=== PATIENT | male | born 1950 | race Caucasian/White ===

== ENCOUNTER → 2023-06-26 16:38 | Outpatient (REF) | payer OTHER, SELFPAY | LOC: RAD 16:38 | PROVIDERS: ATTENDING PHYSICIAN Physician Assistant | DX: R05.3 Chronic cough (principal); R09.89 Other specified symptoms and signs involving the circulatory and respiratory systems | CPT/HCPCS: 71046 ==

== ENCOUNTER → 2023-11-25 14:31 | Outpatient (REF) | payer OTHER, SELFPAY | LOC: HWRAD 14:31 | PROVIDERS: ATTENDING PHYSICIAN Nurse Practitioner | DX: R10.31 Right lower quadrant pain (principal); Z98.890 Other specified postprocedural states; R19.03 Right lower quadrant abdominal swelling, mass and lump | CPT/HCPCS: 76705 ==

== ENCOUNTER → 2023-12-04 10:15 | Outpatient (REF) | payer OTHER, SELFPAY ==
[2023-12-04 11:29] LABS: % Basophils 0.6 % (0-2); % Eosinophils 1.8 % (0-6); % Immature Granulocytes 0.3 % (0-0.5); % Lymphocytes 11.7 % (20.5-51.1); % Monocytes 11.4 % (1.7-9.3); % Neutrophils 74.2 % (42.2-75.2); Absolute Eosinophils 0.1 10^3/uL (0-0.7); Absolute Lymphocytes 0.4 10^3/uL (1.2-3.4); Absolute Monocytes 0.4 10^3/uL (0.1-0.6); Absolute Neutrophils 2.5 10^3/uL (1.4-6.5); Hematocrit 36.9 % (39.0-52.0); Hemoglobin 13.3 g/dL (13.0-18.0); Mean Corpuscular Hgb 33.8 pg (27.0-31.0); Mean Corpuscular Volume 93.9 fL (80.0-94.0); Mean Platelet Volume 11.5 fL (7.4-10.4); Nucleated Red Blood Cells % 0 % (-); Platelet Count 171 10^3/uL (130-400); Red Blood Cell Count 3.93 10^6/uL (4.70-6.10); Red Cell Dist. Width 13.9 % (11.5-14.5); White Blood Cell Count 3.3 10^3/uL (4.8-10.8)
[2023-12-04 12:07] LABS: ALT (SGPT) 27 U/L (0-50); AST (SGOT) 31 U/L (17-59); Albumin 3.7 g/dl (3.5-5.0); Alkaline Phosphatase 244 U/L (38-126); Blood Urea Nitrogen 20 mg/dl (9-20); Calcium 9.2 mg/dl (8.4-10.2); Carbon Dioxide 28 mmol/L (22-30); Chloride 101 mmol/L (98-107); Glucose 58 mg/dl (70-99); Sodium 136 mmol/L (135-145); Total Bilirubin 0.9 mg/dl (0.2-1.3); Total Protein 6.2 g/dl (6.3-8.2); eGFR > 60.00
== END ==
LOC: REG 10:15
PROVIDERS: ATTENDING PHYSICIAN Nurse Practitioner
DX: I10 Essential (primary) hypertension (principal); E78.2 Mixed hyperlipidemia; D64.9 Anemia, unspecified; R56.9 Unspecified convulsions
CPT/HCPCS: 36415; 80053; 85025

== ENCOUNTER → 2023-12-06 10:17 | Outpatient (REF) | payer OTHER, SELFPAY | LOC: HWRAD 10:17 | PROVIDERS: ATTENDING PHYSICIAN Nurse Practitioner | DX: R19.03 Right lower quadrant abdominal swelling, mass and lump (principal) | CPT/HCPCS: 74178; Q9967 ==

== ENCOUNTER → 2024-01-03 10:11 | Outpatient (REF) | payer OTHER, SELFPAY ==
[2024-01-03 14:05] LABS: Blood Urea Nitrogen 17 mg/dl (9-20); Calcium 9.1 mg/dl (8.4-10.2); Carbon Dioxide 26 mmol/L (22-30); Chloride 101 mmol/L (98-107); Glucose 64 mg/dl (70-99); Potassium 4.2 mmol/L (3.5-5.1); Sodium 136 mmol/L (135-145); eGFR > 60.00
== END ==
LOC: REG 10:11
PROVIDERS: ATTENDING PHYSICIAN Nurse Practitioner; FAMILY PHYSICIAN Nurse Practitioner; REFERRING PHYSICIAN Physician Assistant
DX: R06.02 Shortness of breath (principal); R60.9 Edema, unspecified
CPT/HCPCS: 36415; 71046; 80048

== ENCOUNTER 2024-03-10 19:45 | Emergency (ER) | payer OTHER, SELFPAY ==
[2024-03-10 19:55] VITALS: BP 104/69
[2024-03-10 20:41] LABS: % Basophils 0.3 % (0-2); % Eosinophils 0.3 % (0-6); % Immature Granulocytes 0.5 % (0-0.5); % Lymphocytes 4.2 % (20.5-51.1); % Monocytes 6.7 % (1.7-9.3); Absolute Lymphocytes 0.3 10^3/uL (1.2-3.4); Absolute Monocytes 0.4 10^3/uL (0.1-0.6); Absolute Neutrophils 5.4 10^3/uL (1.4-6.5); Hematocrit 40.6 % (39.0-52.0); Hemoglobin 14.4 g/dL (13.0-18.0); Mean Corp Hgb Conc. 35.5 g/dL (33.0-37.0); Mean Corpuscular Volume 90.2 fL (80.0-94.0); Mean Platelet Volume 11.1 fL (7.4-10.4); Nucleated Red Blood Cells % 0 % (-); Platelet Count 187 10^3/uL (130-400); Red Cell Dist. Width 13.7 % (11.5-14.5); White Blood Cell Count 6.1 10^3/uL (4.8-10.8)
[2024-03-10 20:53] LABS: COVID-19 Antigen Negative (Negative)
[2024-03-10 21:00] VITALS: BP 104/67
--- NOTE | 2024-03-10 21:01 | ED.GENMED ---
History of Present Illness
General
Chief Complaint: Fever
Source: patient
Exam Limitations: developmental stage
Time Seen by Provider: 03/10/24 20:06
Nursing documentation reviewed up to this point in time: agreed with
History of Present Illness
History of Present Illness:
74-year-old male special-needs, from the facility presents with fever 103 patient states he has a mild cough no nausea no vomiting he knows he is at the hospital, no abdominal pain no problem urinating, his seizure disorder high cholesterol heart
failure
Past History
Past History
ED Past Medical History: Hypercholesterolemia, Seizures, Psychiatric and Other (Diverticulosis Asperger's developmental delays seizures.)
ED Past Surgical History: Cholecystectomy, Urological (TURP) and Other (MEDICAL INSURANCE BILLER shunt. Hernia repair)
Social History
Tobacco: Non-smoker
Alcohol: None
Drug: None
Personal: Single
Living: assisted living
Employment: Not employed
Review of Systems
Review of Systems
All Other Systems: Not applicable
Constitutional: Reports fever
Respiratory: Reports cough
Cardiac: Reports no symptoms
ABD/GI: Reports no symptoms
: Reports no symptoms
Musculoskeletal: Reports no symptoms
Skin: Reports no symptoms
Endocrine: Reports no symptoms
Hematologic/Lymphatic: Reports no symptoms
Phy Exam
Physical Exam
Physical Exam:
Physical Exam
General: Special needs chronically ill nontoxic elderly male with fever
Neck: Lips are moist
Heart: Regular
Lungs: no acute respiratory distress. clear bilaterally
Abdomen: Nontender
Neuro: Nonfocal
Skin: no rash
Psychiatric: Developmentally delayed,
Extremities: no edema. no calf tenderness.
Sepsis
Sepsis Screening
Sepsis Assessment: Sepsis Ruled Out
Sepsis Screen
Sepsis Screen: Sepsis Ruled Out
Date: 03/10/24
Time: 22:45
Course
Orders/Labs/Results
Orders:
Orders
03/10/24 20:26
CBC/With Diff [Complete Blood Count/With Diff] Urgent
COVID-19 Antigen Urgent
Source: Nasal Swab
Influenza A+B Rapid Molecular Urgent
MICHAEL Source: Nasal Swab
Specimen Description:
03/10/24 20:32
Urinalysis Reflex To Culture Urgent
Acetaminophen [Tylenol] 650 mg PO NOW STA
CR Chest - 2 Views Urgent
Comment:
Reason For Exam: fever
03/10/24 21:08
Comprehensive Metabolic Panel Urgent
03/10/24 22:41
CefTRIAXone [Rocephin] 1,000 mg IV NOW STA
Abnormal Lab Results
03/10/24 03/10/24
20:26 21:08
RBC 4.50 L 10^6/uL
(4.70-6.10)
MCH 32.0 H pg
(27.0-31.0)
MPV 11.1 H fL
(7.4-10.4)
Absolute Lymphs (auto) 0.3 L 10^3/uL
(1.2-3.4)
Neutrophils % 88.0 H %
(42.2-75.2)
Lymphocytes % 4.2 L %
(20.5-51.1)
Chloride 97 L mmol/L
(98-107)
Carbon Dioxide 32 H mmol/L
(22-30)
BUN 22 H mg/dl
(9-20)
Alkaline Phosphatase 221 H U/L
(38-126)
Total Protein 5.8 L g/dl
(6.3-8.2)
03/10/24 20:26
03/10/24 21:08
Vital Signs
Initial and Last Documented VS:
Initial Vital Signs
Temp Pulse Resp BP Pulse Ox
101.4 F H 86 24 104/69 98
03/10/24 19:55 03/10/24 19:55 03/10/24 19:55 03/10/24 19:55 03/10/24 19:55
Last Documented Vital Signs
Temp Pulse Resp BP Pulse Ox
101.4 F H 86 24 104/69 98
03/10/24 19:55 03/10/24 19:55 03/10/24 19:55 03/10/24 19:55 03/10/24 19:55
MDM/Problems Addressed
Differential Diagnosis Includes:
Viral syndrome pneumonia UTI no signs of DVT
MDM/Problems Addressed:
Fever
Chronic conditions affecting care: Neurological disorder and Psychiatric illness
Acute Exacerbation and/or Progression of Chronic Illness: Neurological disorder and Psychiatric illness
*Radiology
Radiology exam reviewed: preliminary read by ED provider
*Pulse Oximetry
Patient hypoxic: no
*Developing Machine Tender Interpretation
Rate: Developing Machine Tender- N/A
*Critical Care Note
Total Time (30-74mins, 75-104mins- exclusive of procedures): Not Applicable
Update Note
Update Note:
Patient with high fever earlier, he is nontoxic fairly clear mental status, check screening blood work viral swabs chest x-ray urine
Update chest x-ray noted
Similar to prior chest x-rays, patient obviously not the best historian is not hypoxic, nontoxic-appearing will err on the side of caution and treat with antibiotics
ED Attending Note
-
Portions of this chart may have been created with voice recognition software.� Occasional wrong word or��sound alike� substitutions may have occurred due to the inherent limitations of voice recognition software.
Discharge Plan
Departure
Patient Disposition: Home (Routine Discharge)
Date of Disposition: 03/10/24
Time of Disposition: 22:43
Patient with high blood pressure during this ER visit?: No
Condition: Good
Discharge Problem:
Fever, Pneumonia
Instructions: Pneumonia in adults, Fever, Adult (DC)
Prescriptions:
New
amoxicillin-pot clavulanate [Augmentin ES-600] 600-42.9 mg/5 mL suspension for reconstitution
5 ml PO BID 10 Days Qty: 100 0RF
No Action
clonazepam 0.5 MG tablet
0.5 mg PO TID@0800,1600,1999
docusate sodium 100 MG capsule
100 mg PO BID@0800,1600
phenobarbital 32.4 MG tablet
32.4 mg PO TID@0800,1200,1600
chlorhexidine gluconate 15 ML mouthwash
15 ml mucous membrane BID
calcium carbonate-vitamin D3 [Oyster Shell Calcium-Vit D3] 500 mg-5 mcg (200 unit) Tablet
1 tab PO BID@0800,1600
polyethylene glycol 3350 17 GRAMS powder in packet
17 grams PO DAILY
simvastatin 10 mg Tablet
10 mg PO DAILY@1600
tamsulosin 0.4 mg Capsule
0.4 mg PO BID
aspirin 81 mg Tablet,Chewable
81 mg PO DAILY
carboxymethylcellulose sodium 1 % Drops, Liquid Gel
1 - 2 drp RIGHT EYE QID PRN (Reason: dryness)
escitalopram oxalate 10 mg Tablet
10 mg PO DAILY
Rx Instructions:
take w/ 5 mg for total dose 15 mg
escitalopram oxalate 5 mg Tablet
5 mg PO DAILY
Rx Instructions:
take w/ 10 mg for total dose 15 mg
acetaminophen 325 mg Tablet
650 mg PO Q4H PRN (Reason: mild pain/fever)
nystatin 100,000 unit/gram ointment
1 applic TOPICAL BID PRN (Reason: rash)
guaifenesin 100 mg/5 mL Liquid
100 - 200 mg PO Q4H PRN (Reason: cough)
Citrucel 500 mg Tablet
1,000 mg PO BID@0800,1600
bethanechol chloride 25 mg tablet
25 mg PO BID
pantoprazole [Protonix] 40 mg tablet,delayed release (DR/EC)
40 mg PO DAILY Qty: 30 0RF
furosemide 40 mg Tablet
40 mg PO BID@0800,1600 Qty: 60 0RF
spironolactone 25 mg Tablet
12.5 mg PO DAILY Qty: 30 0RF
Referrals:
Josefa Farley CRNP [Family Provider] - Next open appointment
Interventions
Interventions:
*Risk Screen - Suicide Last Done: 03/10/24 19:55
*General Assessment Last Done: 03/10/24 19:55
*Neglect/Abuse Screening Last Done: 03/10/24 19:55
Discharge Date and Time
Print Language: PERUVIAN
[2024-03-10] MEDS: TYLENOL 650 MG PO (21:02)
[2024-03-10 21:32] LABS: ALT (SGPT) 26 U/L (0-50); AST (SGOT) 33 U/L (17-59); Albumin 3.5 g/dl (3.5-5.0); Alkaline Phosphatase 221 U/L (38-126); Blood Urea Nitrogen 22 mg/dl (9-20); Calcium 8.7 mg/dl (8.4-10.2); Carbon Dioxide 32 mmol/L (22-30); Chloride 97 mmol/L (98-107); Glucose 94 mg/dl (70-99); Potassium 3.9 mmol/L (3.5-5.1); Sodium 137 mmol/L (135-145); Total Bilirubin 0.7 mg/dl (0.2-1.3); Total Protein 5.8 g/dl (6.3-8.2); eGFR > 60.00
[2024-03-10 22:00] VITALS: BP 102/58
[2024-03-10] MEDS: ROCEPHIN 1000 MG IV (23:24)
[2024-03-10 23:26] VITALS: BP 91/71
[2024-03-11] VITALS (9 sets, daily range): BP systolic 91–102; BP diastolic 60–73
--- NOTE | 2024-03-11 04:05 | DOWNTIME ---
There was a [employer] Client Dermatology Physician Downtime on 02/12/2024 from 0100 to 02/12/2024 at 0300. Downtime documentation of patient's care, including medication administrations, has been reconciled in the electronic record per guidelines. Refer to the
patient's paper chart under the miscellaneous tab to see printed paper medication records and downtime forms.
--- NOTE | 2024-03-11 04:52 | DOWNTIME ---
There was a [employer] Client Automatic Mounter Downtime on 03/11/2024 from 0100 to 03/11/2024 at 0355. Downtime documentation of patient's care, including medication administrations, has been reconciled in the electronic record per guidelines. Refer to the
patient's paper chart under the miscellaneous tab to see printed paper medication records and downtime forms.
--- NOTE | 2024-03-11 09:20 | EDRN ---
Report given to Hallie Betancourt RN at [facility].
--- NOTE | 2024-03-11 09:39 | EDRN ---
Report given to Acute Care Ambulance staff.
== END 2024-03-11 09:42 | disposition home or self-care (01) ==
LOC: EMR 19:45
PROVIDERS: EMERGENCY PHYSICIAN Emergency Medicine; FAMILY PHYSICIAN Nurse Practitioner
DX: J18.9 Pneumonia, unspecified organism (principal); E78.00 Pure hypercholesterolemia, unspecified; F84.5 Asperger's syndrome; Z90.49 Acquired absence of other specified parts of digestive tract; Z98.2 Presence of cerebrospinal fluid drainage device
CPT/HCPCS: 99284; 96374; 71046; 80053; 85025; 87502; 87811

== ENCOUNTER → 2024-04-03 10:10 | Outpatient (REF) | payer OTHER, SELFPAY | LOC: RCS 10:10 | PROVIDERS: ATTENDING PHYSICIAN Nuclear Medicine Nuclear Cardiology; FAMILY PHYSICIAN Internal Medicine; REFERRING PHYSICIAN Nurse Practitioner | DX: I50.32 Chronic diastolic (congestive) heart failure (principal); I31.39 Other pericardial effusion (noninflammatory); I50.22 Chronic systolic (congestive) heart failure | CPT/HCPCS: 71046; 93306 ==

== ENCOUNTER → 2024-05-22 14:58 | Outpatient (REF) | payer OTHER, SELFPAY | LOC: RAD 14:58 | PROVIDERS: ATTENDING PHYSICIAN Nurse Practitioner | DX: J06.9 Acute upper respiratory infection, unspecified (principal) | CPT/HCPCS: 71046 ==

== ENCOUNTER → 2024-05-25 13:22 | Outpatient (REF) | payer OTHER, SELFPAY ==
[2024-05-25 14:19] VITALS: BP 102/81; BP_SYST 72
[2024-05-25 14:56] LABS: ALT (SGPT) 29 U/L (0-50); AST (SGOT) 32 U/L (17-59); Albumin 3.1 g/dl (3.5-5.0); Alkaline Phosphatase 177 U/L (38-126); Blood Urea Nitrogen 25 mg/dl (9-20); Calcium 8.6 mg/dl (8.4-10.2); Carbon Dioxide 31 mmol/L (22-30); Chloride 97 mmol/L (98-107); Glucose 108 mg/dl (70-99); LDH 154 U/L (120-246); Potassium 4.1 mmol/L (3.5-5.1); Sodium 132 mmol/L (135-145); Total Bilirubin 0.5 mg/dl (0.2-1.3); Total Protein 5.4 g/dl (6.3-8.2); eGFR > 60.00
[2024-05-25 14:59] VITALS: BP 100/65
[2024-05-25 15:29] LABS: Body Fluid Glucose 93 mg/dl; Body Fluid LDH < 90 U/L
== END ==
LOC: RADI 13:22
PROVIDERS: ATTENDING PHYSICIAN Nurse Practitioner
DX: J90 Pleural effusion, not elsewhere classified (principal)
CPT/HCPCS: 32555; 36415; 71045; 80053; 82945; 83615; 87015; 87070; 87205

== ENCOUNTER 2024-05-28 23:44 | Inpatient (IN) | payer OTHER, SELFPAY ==
[2024-05-28 16:07] VITALS: BP 103/67
[2024-05-28 16:46] LABS: % Basophils 0.5 % (0-2); % Eosinophils 1.6 % (0-6); % Immature Granulocytes 0.2 % (0-0.5); % Lymphocytes 6.4 % (20.5-51.1); % Monocytes 10.4 % (1.7-9.3); % Neutrophils 80.9 % (42.2-75.2); Absolute Eosinophils 0.1 10^3/uL (0-0.7); Absolute Lymphocytes 0.4 10^3/uL (1.2-3.4); Absolute Monocytes 0.6 10^3/uL (0.1-0.6); Absolute Neutrophils 4.4 10^3/uL (1.4-6.5); Hematocrit 40.4 % (39.0-52.0); Hemoglobin 13.5 g/dL (13.0-18.0); Mean Corp Hgb Conc. 33.4 g/dL (33.0-37.0); Mean Corpuscular Hgb 31.9 pg (27.0-31.0); Mean Corpuscular Volume 95.5 fL (80.0-94.0); Mean Platelet Volume 10.8 fL (7.4-10.4); Nucleated Red Blood Cells % 0 % (-); Platelet Count 191 10^3/uL (130-400); Red Blood Cell Count 4.23 10^6/uL (4.70-6.10); Red Cell Dist. Width 14.1 % (11.5-14.5); White Blood Cell Count 5.5 10^3/uL (4.8-10.8)
[2024-05-28 16:55] LABS: ALT (SGPT) 24 U/L (0-50); AST (SGOT) 30 U/L (17-59); Albumin 3.3 g/dl (3.5-5.0); Alkaline Phosphatase 195 U/L (38-126); Blood Urea Nitrogen 23 mg/dl (9-20); Calcium 8.3 mg/dl (8.4-10.2); Carbon Dioxide 34 mmol/L (22-30); Chloride 96 mmol/L (98-107); Glucose 80 mg/dl (70-99); Potassium 3.9 mmol/L (3.5-5.1); Sodium 134 mmol/L (135-145); Total Bilirubin 0.6 mg/dl (0.2-1.3); Total Protein 5.7 g/dl (6.3-8.2); eGFR > 60.00
[2024-05-28 17:10] LABS: NT-proBNP 1290 pg/ml; Troponin I < 0.012 ng/ml
--- NOTE | 2024-05-28 19:50 | ED.GENMED ---
History of Present Illness
General
Chief Complaint: Blood Pressure Problem
Source: patient and other (Triage note)
Exam Limitations: developmental stage
Time Seen by Provider: 05/28/24 19:27
History of Present Illness
History of Present Illness:
This is a 74 year old male that is brought in by ambulance with c/o low BP. Staes that he came in by ambulance and that his BP was low. Told that patient has a Thoracentesis on the . Today his BP was low and the cardiolgist felt patient needed
to be evaluated. Patient has no complaints. Denies any fever, chills, chest pain, SOB, abd pain, nausea, vomiting, diarrhea, headache, dizziness.
Past History
Past History
ED Past Medical History: Hypercholesterolemia, Seizures, Psychiatric (OCD) and Other (Diverticulosis, Asperger's developmental delays, Mild Mental retardation, Essential tremors, Hemorrhoids, )
ED Past Surgical History: Cholecystectomy, Urological (TURP) and Other (MICROSTRATEGY ARCHITECT DEVELOPER shunt. Hernia repair Ventril, Cataracts, )
Social History
Tobacco: Non-smoker
Alcohol: None
Drug: None
Personal: Single
Living: assisted living ([facility])
Employment: Not employed
Review of Systems
Review of Systems
All Other Systems: ROS reviewed and negative except as documented in HPI and ROS
Constitutional: Reports no symptoms; Denies fever or chills
EENT: Reports no symptoms
Respiratory: Reports no symptoms; Denies cough or trouble breathing
Cardiac: Reports no symptoms; Denies chest pain
ABD/GI: Reports no symptoms; Denies abdominal pain, nausea, vomiting or diarrhea
: Reports no symptoms
Musculoskeletal: Reports no symptoms
Skin: Reports no symptoms
Neurological: Reports no symptoms; Denies dizzy or headache
Psychiatric: Reports no symptoms
Phy Exam
General Physical Exam
General Presentation: no apparent distress
General age: appears stated age
General Skin: warm and dry
General Habitus: elderly
General Mental: usual mental status
General Hydration: appears well hydrated
ENT Exam
ENT Exam: TM's normal, pharynx normal and neck supple
Eye Exam
Eye Exam: EOMI
Cardiovascular Exam
Cardiovascular Exam: regular rate/rhythm and normal peripheral pulses
Pulmonary Exam
Pulmonary Exam: no respiratory distress, no rales, chest non tender, no crackles, no rhonchi, no wheezing, no cough and decreased breath sounds (Right sided)
Gastrointestinal Exam
Gastrointestinal Exam: normal bowel sounds, non tender, soft, no organomegaly, no pulsatile mass and non distended
Musculoskeletal Exam
Musculoskeletal Exam: edema (Nonpitting lower legs)
Skin Exam
Skin Exam: normal color, warm/dry, no rash and no petechia
Psychiatric Exam
Psychiatric Exam: normal mood/affect
Course
Orders/Labs/Results
Orders:
Orders
05/28/24 Breakfast
Cholesterol Lowering
Cholesterol Lowering: Sodium, 2 Gram
05/28/24 16:04
CXR2 [CR Chest - 2 Views ] Urgent
Comment:
Reason For Exam: sob
05/28/24 16:13
Electrocardiogram (*1) Urgent
Reason for Study: Shortness of Breath
EKG- Treatment ONCE
05/28/24 16:38
Complete Blood Count/With Diff Urgent
Comprehensive Metabolic Panel Urgent
NT-proBNP Urgent
Troponin I Urgent
05/28/24 19:49
Orthostatic VS- Treatment ONCE
05/28/24 19:50
0.9% Sodium Chloride 500 ml [Nss] 500 ml IV BOLUS
05/28/24 23:00
Flush (0.9% Sodium Chloride) [Flush (Nss)] See Dose Instructions IV PER PROTOCOL
05/28/24 23:20
Admit/Transfer Patient As Directed
Co-Sign Provider:
Level of Care: Inpatient admission
Assign to:: Telemetry
Physician / Group: [email or web address]
Diagnosis: acute on chr HFpEF, moderate Rt pleural effusion
Reason for Telemetry: Acute Heart Failure
Date to Stop Telemetry: 05/31/24
Time to Stop Telemetry: 11:00
Reason for Hospitalization: acute on chr HFpEF, moderate Rt pleural effusion
Expected length of stay greater than two midnights?: Yes
ELOS- Estimated Length of Stay in days: 3
I certify the patient meets the requirements for IP care: Yes
05/28/24 23:23
Code Status As Directed
Resuscitation Status: Full Code
05/28/24 23:55
Furosemide [Lasix] 20 mg IV NOW STA
05/28/24 23:55
CARDIOLOGY CONSULT Routine
Consulting Provider: Robe Romero
Was physician already notified: No
Reason for consult: acute on chr HFpEF, moderate Rt pleural effusion
Consult Interventional Radiology [IRAD CONSULT] Routine
Consulting Provider: Keanu Stone
Was physician already notified: No
Reason for Consult/Procedure: acute on chr HFpEF, moderate Rt pleural effusion
Acknowledgement that appropriate orders are entered: Yes
Consult Notification Routine
Specialty to Notify: Cardiology
Consult Notification Routine
Specialty to Notify: IRAD (Interventional Radiology)
HF DIETARY CONSULT Routine
HF EDUCATOR CONSULT Routine
Comment:
Body Fluid Amylase Routine
Fluid Source: Pleural
Body Fluid Cell Count Routine
What is the Body Fluid: pleural fluid
Comment: post procedure
Body Fluid Glucose Routine
Fluid Source: Pleural
Body Fluid LDH Routine
Fluid Source: Pleural
Body Fluid Protein Routine
Fluid Source: Pleural
Body Fluid Triglycerides Routine
Fluid Source: Pleural
Body Fluid pH Routine
Fluid Source: Pleural
Glucose Routine
Hematocrit Routine
LDH Routine
Comment: post procedure, add on to morning labs if already drawn
Total Protein Routine
Comment: post procedure, add on to morning labs if already drawn
Gram Stain Routine
MICHAEL Source: Pleural Fluid
Specimen Description:
Comment: POST PROCEDURE
Activity As Directed
Activity Level: With Assistance
Intake/ Output As Directed
Frequency: Per unit guidelines
Patient Education As Directed
Type: CHF folder
Comment: give on admission. Document in Interdisciplinary Education record
Sleep Apnea Assessment by RN As Directed
Comment:
Physician Instructions:
Vital Signs As Directed
Frequency: Other
Additional Instructions:: Q12 or per unit guidelines if more frequent.
Weight As Directed
Frequency: Daily
Type of Scale: Standing Scale
Comment: Daily morning weight. If unable to stand, use balanced bed scale.
Weight As Directed
Frequency: Once
Type of Scale: Standing Scale
Comment: Upon Admission. If unable to stand, use balanced bed scale.
Pulse Ox/cont/shift [RESP] Routine
Quantity: 1
Special Instructions: Daily pulse oximetry at rest. If greater than 92% at rest also obtain pulse oximetry
while ambulating as tolerated.
DX Deep Vein Thrombosis Video Routine
05/29/24 01:42
Basic Metabolic Panel IN AM
05/29/24 08:00
Aspirin Chewable [Low Strength Aspirin] 81 mg PO DAILY
Clonazepam [Klonopin] 0.5 mg PO BID
Escitalopram Oxalate [Lexapro] 10 mg PO DAILY
Escitalopram Oxalate [Lexapro] 5 mg PO DAILY
Pantoprazole [Protonix] 40 mg PO DAILY
Phenobarbital [Luminal] 32.4 mg PO TID@0800,1200,1600
Tamsulosin [Flomax] 0.4 mg PO BID
05/29/24 18:00
Atorvastatin [Lipitor] 10 mg PO QPM
Enoxaparin Sodium [Lovenox] 40 mg SC QPM
05/30/24 06:00
Basic Metabolic Panel IN AM
05/31/24 06:00
Basic Metabolic Panel IN AM
05/31/24 11:00
DC Protocol for Telemetry ONCE
Abnormal Lab Results
05/28/24
16:38
RBC 4.23 L 10^6/uL
(4.70-6.10)
MCV 95.5 H fL
(80.0-94.0)
MCH 31.9 H pg
(27.0-31.0)
MPV 10.8 H fL
(7.4-10.4)
Absolute Lymphs (auto) 0.4 L 10^3/uL
(1.2-3.4)
Neutrophils % 80.9 H %
(42.2-75.2)
Lymphocytes % 6.4 L %
(20.5-51.1)
Monocytes % 10.4 H %
(1.7-9.3)
Sodium 134 L mmol/L
(135-145)
Chloride 96 L mmol/L
(98-107)
Carbon Dioxide 34 H mmol/L
(22-30)
BUN 23 H mg/dl
(9-20)
Calcium 8.3 L mg/dl
(8.4-10.2)
Alkaline Phosphatase 195 H U/L
(38-126)
Total Protein 5.7 L g/dl
(6.3-8.2)
Albumin 3.3 L g/dl
(3.5-5.0)
05/28/24 16:38
05/28/24 16:38
Anemia, Sodium very slightly low. Chloride low. Carbon dioxide slightly elevated. Dehydration. Calcium slightly low. Alk phos elevation. Total protein low. Albumin slightly low. Troponin <0.012, Pro-BNP 1290
Vital Signs
Initial and Last Documented VS:
Initial Vital Signs
Temp Pulse Resp BP Pulse Ox
97.9 F 71 20 103/67 100
05/28/24 16:07 05/28/24 16:07 05/28/24 16:07 05/28/24 16:07 05/28/24 16:07
Last Documented Vital Signs
Temp Pulse Resp BP Pulse Ox
97.8 F 77 16 121/78 98
05/28/24 23:19 05/28/24 23:19 05/28/24 23:19 05/28/24 23:19 05/28/24 23:19
MDM/Problems Addressed
Differential Diagnosis Includes:
Orthostatic, right Pleural effusion
MDM/Problems Addressed:
This is a 74 year old male that is brought in by ambulance with c/o hypotension. Patient states that he has no complaints.
Will check labs, Monitor BP and get chest x-ray.
Back into see patient. Explained that he would be admitted as he has a right pleural effusion. Hospitalist notified.
Chronic conditions affecting care: Other (Slight Mental retardation)
Acute Exacerbation and/or Progression of Chronic Illness: Other (Slight Mental retardation)
*Radiology
Radiology exam reviewed: preliminary read by ED provider (Chest- Right pleural effusion. ) and radiology read reviewed (Chest-Progressive congestive heart failure)
*Pulse Oximetry
Patient hypoxic: no
*EKG
Interpreted by ED Provider?: Yes
Heart Rate: 78
Rate: normal
Rhythm: sinus
[place]: normal axis
Interval: normal interval
QRS Pattern: normal QRS
Ischemia: no ischemia
*Hydroelectric Station Chief Interpretation
Rate: Hydroelectric Station Chief- N/A
*Critical Care Note
Total Time (30-74mins, 75-104mins- exclusive of procedures): Not Applicable
ED Attending Note
-
Portions of this chart may have been created with voice recognition software.� Occasional wrong word or��sound alike� substitutions may have occurred due to the inherent limitations of voice recognition software.
Discharge Plan
Departure
Patient Disposition: Admit
Date of Disposition: 05/28/24
Time of Disposition: 22:10
Admit to: Med/Surg
Presentation/result/management discussed w/ accepting MD/DO: Hospitalist
Patient with high blood pressure during this ER visit?: No
Condition: Good
Covid-19: Not Applicable
Discharge Problem:
Pleural effusion on right
Interventions
Interventions:
*Risk Screen - Suicide Last Done: 05/28/24 16:07
*General Assessment Last Done: 05/28/24 20:17
*Neglect/Abuse Screening Last Done: 05/28/24 20:17
ED- Fall Risk Assessment Last Done: 05/28/24 20:20
*ED COVID-19 Vaccine History Last Done: 05/28/24 20:17
ED- Cardiac Assessment Last Done: 05/28/24 19:45
ED- Neurological Assessment Last Done: 05/28/24 19:45
ED- Pulmonary Assessment Last Done: 05/28/24 19:45
[2024-05-28 20:08] VITALS: BP 117/71; BP 126/76; BP 98/65; PULSE 71; PULSE 76
--- NOTE | 2024-05-28 23:17 | HPS.HSE ---
Family Physician
-
Family Physician: JUDY Drake
Chief Complaint
-
low BP
History of Present Illness
HPI
74M HX pericardial effusion, asberger syndrome/mild intellectual disability, seizure history, hypercholesterolemia, essential tremor, DOWNSTAIRS MAID shunt, BPH status post TURP, constipation seen at ER;
- [facility] for low BP
- s/p Thoracentesis on the
- Today his BP was low and the carburetor specialist felt patient needed to be evaluated.
- Patient has no complaints.
ROS:
Denies any fever, chills, chest pain, SOB, abd pain, nausea, vomiting, diarrhea, headache, dizziness.
Medical History
Past Medical History
Past Medical History: Reports Other (pericardial effusion, asberger syndrome/mild intellectual disability, seizure history, hypercholesterolemia, essential tremor, DOWNSTAIRS MAID shunt, BPH status post TURP, constipation)
Past Surgical History: Reports Other (DOWNSTAIRS MAID shunt)
Social History
Tobacco: Non-smoker
Alcohol: None
Drug: None
Family History
Family History: Not pertinent
Allergies / Home Medications
Allergies reflects when Allergies were last updated in [employer].
Home Medications with original date entered in [employer]
Allergy/Medication List:
Allergies
Allergy/AdvReac Type Severity Reaction Status Date / Time
No Known Allergies Allergy Verified 04/17/23 15:28
Home Medications
chlorhexidine gluconate 0.12 % mouthwash 15 ml mucous membrane BID DENTAL 02/24/19
clonazepam 0.5 mg tablet 0.5 mg PO TID@0800,1600,2000 Mental Health/Anxiety 02/24/19
docusate sodium 100 mg capsule 100 mg PO BID@0800,1600 Constipation 02/24/19
phenobarbital 32.4 mg tablet 32.4 mg PO TID@0800,1200,1600 Seizures 02/24/19
calcium carbonate 500 mg-vitamin D3 5 mcg (200 unit) tablet (Oyster Shell Calcium-Vitamin D3) 1 tab PO BID@0800,1600 Supplement 12/07/21
polyethylene glycol 3350 17 gram oral powder packet 17 grams PO DAILY Constipation 12/07/21
aspirin 81 mg chewable tablet 81 mg PO DAILY Blood clot prevention/tx 02/13/22
carboxymethylcellulose sodium 1 % eye liquid gel drops 1 - 2 drp RIGHT EYE QID PRN dryness 02/13/22
escitalopram oxalate 10 mg tablet 10 mg PO DAILY Mental Health/Anxiety 02/13/22
escitalopram oxalate 5 mg tablet 5 mg PO DAILY Mental Health/Anxiety 02/13/22
simvastatin 10 mg tablet 10 mg PO DAILY@1600 High cholesterol 02/13/22
tamsulosin 0.4 mg capsule 0.4 mg PO BID Urinary issue 02/13/22
acetaminophen 325 mg tablet 650 mg PO Q4H PRN mild pain/fever 04/17/23
bethanechol chloride 25 mg tablet 25 mg PO BID Urinary Issue 04/17/23
guaifenesin 100 mg/5 mL oral liquid 100 - 200 mg PO Q4H PRN cough 04/17/23
methylcellulose (laxative) 500 mg tablet (Citrucel) 1,000 mg PO BID@0800,1600 Constipation 04/17/23
nystatin 100,000 unit/gram topical ointment 1 applic topical BID PRN rash 04/17/23
pantoprazole 40 mg tablet,delayed release (Protonix) 40 mg PO DAILY GERD #30 tabs 04/21/23
furosemide 40 mg tablet 40 mg PO BID@0800,1600 Heart Failure #0 tabs 05/02/23
spironolactone 25 mg tablet 12.5 mg PO DAILY Heart Failure #30 tabs 05/02/23
Review of Systems
-
Constitutional: Reports No Symptoms
EENT: Reports No Symptoms
Respiratory: Reports No Symptoms
Cardiac: Reports No Symptoms
Abdomen/GI: Reports No Symptoms
: Reports No Symptoms
Musculoskeletal: Reports No Symptoms
Skin: Reports No Symptoms
Neurological: Reports No Symptoms
Endocrine: Reports No Symptoms
Hematologic/Lymphatic: Reports No Symptoms
Psych: Reports No Symptoms
Physical Exam
Vital Signs
Vital Signs
Temp Pulse Resp BP Pulse Ox
97.9 F 71 20 103/67 99
05/28/24 16:07 05/28/24 16:07 05/28/24 16:07 05/28/24 16:07 05/28/24 20:08
Physical Exam
General: No Apparent Distress and Other (awake, conversant)
HEENT: PERRLA
Respiratory: Other (decreased breath sounds left lung base ); No Wheezes or Rales
Cardiac: S1/S2 and Regular Rhythm
GI: Soft and Non Tender
Musculoskeletal: No Edema
Skin: Warm and Dry; No Rash
Neuro: AO x 3
Psych: Calm
Laboratory Results
-
05/28/24 16:38
05/28/24 16:38
Laboratory Results
Total Bilirubin 0.6 mg/dl (0.2-1.3) 05/28/24 16:38
AST 30 U/L (17-59) 05/28/24 16:38
ALT 24 U/L (0-50) 05/28/24 16:38
Alkaline Phosphatase 195 U/L (38-126) H 05/28/24 16:38
Troponin I < 0.012 ng/ml 05/28/24 16:38
Data Reviewed
-
Diagnostic Radiology: Report Reviewed by me
Medical Tests (Nuc Med, Echo, EKG etc): Report Reviewed by me
Lab Data: Labs Reviewed by me
Old Records: Reviewed
Impression/Plan
-
Reviewed VS: Afebrile, BP 103/67
Data
Unremarkable CBC
Na 134
Cl 96
CO2 34
Cr 1.2
eGFR > 60
NG TPNI
pro BNP 1290
05/28/24 CXR: Progressive CHF Moderate right and small left pleural effusion, having progressed since prior examination.
04/03/24 ECHO
1. Estimated left ventricular ejection fraction is 55 to 60%. Diastolic function is indeterminate.
2. Normal right ventricular size and systolic function.
3. Mild to moderately dilated left atrium.
4. Thickened mitral valve leaflets with mild to moderate mitral regurgitation.
5. Thickened aortic valve without claudia aortic stenosis or regurgitation.
6. Mild to moderate tricuspid regurgitation.
7. Pleural effusion is noted.
8. There is a mobile echodensity noted in the right atrium, most consistent
with a prominent Chiari network.
Last hospitalist admission: Date of Admission: 05/17/23 - Date of Discharge: 05/21/23
Primary diagnoses:
Transient acute encephalopathy
Secondary diagnoses:
Chronic heart failure with preserved ejection fraction
Seizure Disorder
Autism spectrum with developmental delay
Gastroesophageal reflux disease
Hyperlipidemia
Anxiety
Benign prostatic hypertrophy with history of transurethral radical prostatectomy
ASSESSMENT & PLAN
Acute on chr HFpEF
Moderate Moderate right and small left pleural effusion
- IV Lasix 20 once
- Hold all BP Meds to give room for Diuresis
- Observe BP
- IR consult to evaluate for Rt thoracetesis
- DCA Card consult
HX bilateral pleural effusions s/p thoracentesis
HX PNA
Seizure Disorder
- MERCHANDISE SHOPPER Phenobarbital
Autism spectrum with developmental delay chronic--Oriented to name, place
GERD
- stable
- on PPI
HLD
- cont zocor 10 mg daily
Anxiety
- stable
- c/w Lexapro, clonazepam
BPH/ S/P TURP
- c/w bethanechol and tamsulosin 0.4 mg twice daily
DVT PPx: Lovenox
Code: Full
IP TLM
[2024-05-28 23:19] VITALS: BP 121/78
[2024-05-29] VITALS (32 sets, daily range): BP systolic 74–142; BP diastolic 39–125
[2024-05-29 02:21] LABS: Blood Urea Nitrogen 22 mg/dl (9-20); Calcium 8.3 mg/dl (8.4-10.2); Carbon Dioxide 31 mmol/L (22-30); Chloride 100 mmol/L (98-107); Glucose 87 mg/dl (70-99); Potassium 3.9 mmol/L (3.5-5.1); Sodium 135 mmol/L (135-145); eGFR > 60.00
[2024-05-29] MEDS: LASIX 20 MG IV (04:43)
[2024-05-29] MEDS: FLOMAX 0.4 MG PO ×3 (07:39→20:32)
[2024-05-29] MEDS: PROTONIX 40 MG PO (07:40)
[2024-05-29] MEDS: LOW STRENGTH ASPIRIN 81 MG PO (07:40)
[2024-05-29] MEDS: KLONOPIN 0.5 MG PO ×2 (07:40→20:32)
[2024-05-29] MEDS: LEXAPRO 5 MG PO (08:41)
[2024-05-29] MEDS: LUMINAL 32.4 MG PO ×3 (08:41→17:48)
[2024-05-29] MEDS: LEXAPRO 10 MG PO (08:41)
[2024-05-29 08:44] LABS: Body Fluid pH 7.48
[2024-05-29 09:25] LABS: Body Fluid Mononuclear 79.9 %; Body Fluid Polymorphonuclear 20.1 %; Body Fluid WBC 457 /CUMM
[2024-05-29 09:37] LABS: Body Fluid Amylase 33 U/L; Body Fluid Glucose 71 mg/dl; Body Fluid Protein 2.1 g/dl; Body Fluid Triglycerides < 30 mg/dl
--- NOTE | 2024-05-29 09:53 | CON.CAR ---
Addendum entered and electronically signed by Robe Romero MD 05/29/24 17:24:
I saw and examined the patient on morning rounds.
The Reed Dipper's note was reviewed and I agree with the note.
Comment: Briefly, 74-year-old man past medical history HFpEF, recurrent pericardial effusion and intellectual disability who reportedly had AMS and hypotension for which he was brought to [facility] for evaluation
No cardiac complaints
proBNP is lower than prior admissions at 1200
Breathing appears comfortable on room air
Lower extremity edema noted on exam however this might be due to low oncotic pressure/third spacing with low protein and albumin on admission labs
Consider compression stockings to improve his lower extremity edema
Transthoracic echocardiogram with normal LV function, no high-grade valve disease and trivial pericardial effusion - unchanged from prior
Agree with holding spironolactone for hypotension
Consider adding back PO Lasix at a lower dose tomorrow
Rest per Melissa Gee
Original Note:
Medical History
-
Chief Complaint: Low blood pressure
History of Present Illness:
He is a 74-year-old male with history of intellectual disability, scoliosis, seizure disorder, OCD, pericardial effusion status post pericardiocentesis 05/2022 or 365 mL, recurrent pleural effusions, heart failure preserved EF, chronic lower
extremity edema, obstructive sleep apnea, osteopenia, essential tremors, hyperlipidemia, diverticulosis, repair of ventral hernia, cholecystectomy February 2019, BPH status post TURP, pneumonia 02/2024. He was admitted to [facility]
March 2023 with acute heart failure exacerbation and again in April 2023 for transient acute encephalopathy.
His outpatient Lasix has been progressively uptitrated over the past several months due to weight gain and worsening lower extremity edema.
He had a thoracentesis for 1100 mL on 05/25/2024. On 05/26/2024 his Lasix was uptitrated to 120 mg twice daily for 3-4+ bilateral lower extremity edema. Wt down 3 lbs from 145-142 lbs. On 05/28/2023 there were concerns for somnolence with blood
pressure 86/57. He was advised to go to the ER.
ER workup:
Chest x-ray: Progressive congestive heart failure, moderate right and small left pleural effusion have not progressed since last exam 05/25/2024
EKG: Normal sinus rhythm, low voltage, nonspecific ST abnormality
proBNP 1290
Troponin negative x 1
BUN/creatinine 23/1.2, NA 134, K3.9
He was admitted to [facility] June 09 through 2022 with pericardial effusion seen initially on CT scan. There were also bilateral pleural effusions. He underwent pericardiocentesis draining 365 mL bloody fluid. Cytology was negative
for malignant cells.� No specific diagnosis was made. Postprocedure echocardiographic imaging showed resolution and no recurrence of pericardial effusion.
Echo July 2022 EF 50-55% with mild MR and TR and no pericardial or pleural effusions.
Echo June 09, 2022: EF 50-55% with pulmonary artery pressure 30 to 35 mmHg, at least moderate pericardial effusion
Echo June 11, 2022: Moderate pericardial effusion with resolution of pericardial effusion after the completion of the procedure.
���������
PMH:
Pericardial effusion status post pericardiocentesis 06/11/2022 for 365 mL, cytology negative for malignant cells. No specific diagnosis was made.
Pleural effusions status postthoracentesis 05/25/2024, 04/18/2023.
Chronic heart failure preserved EF
Chronic lower extremity edema
Transient acute encephalopathy
Asperger syndrome
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
Hyperlipidemia
BPH status post TURP
Seizure history
Recurrent UTI
Laparoscopic cholecystectomy with ventral hernia repair
Past Medical History
Past Medical History: Other (As above in HPI)
Social History
Tobacco: Non-Smoker
Alcohol: None
Drug: None
Living: Jail
Employment: Not Employed
Family History
Family History: Reviewed & Not Pertinent
Allergies / Home Medications
Allergy/AdvReac Type Severity Reaction Status Date / Time
No Known Allergies Allergy Verified 05/28/24 16:06
�Medication �Instructions �Recorded �Confirmed �Type
chlorhexidine gluconate 0.12 % 15 ml mucous membrane BID DENTAL 02/24/19 05/28/24 History
mouthwash
clonazepam 0.5 mg tablet 0.5 mg PO BID Mental Health/Anxiety 02/24/19 05/28/24 History
docusate sodium 100 mg capsule 100 mg PO BID@0800,1600 02/24/19 05/28/24 History
Constipation
phenobarbital 32.4 mg tablet 32.4 mg PO TID@0800,1200,1600 02/24/19 05/28/24 History
Seizures
calcium 500 mg (as 1 tab PO BID@0800,1600 Supplement 12/07/21 05/28/24 History
carbonate)-vitamin D3 5 mcg (200
unit) tablet (Oyster Shell
Calcium-Vitamin D3)
polyethylene glycol 3350 17 gram 17 grams PO DAILY Constipation 12/07/21 05/28/24 History
oral powder packet
aspirin 81 mg chewable tablet 81 mg PO DAILY Blood clot 02/13/22 05/28/24 History
prevention/tx
escitalopram oxalate 10 mg tablet 10 mg PO DAILY Mental 02/13/22 05/28/24 History
Health/Anxiety
escitalopram oxalate 5 mg tablet 5 mg PO DAILY Mental Health/Anxiety 02/13/22 05/28/24 History
simvastatin 10 mg tablet 10 mg PO QPM High cholesterol 02/13/22 05/28/24 History
tamsulosin 0.4 mg capsule 0.4 mg PO BID Urinary issue 02/13/22 05/28/24 History
acetaminophen 325 mg tablet 650 mg PO Q4HPRN PRN mild 04/17/23 05/28/24 History
pain/fever
bethanechol chloride 25 mg tablet 25 mg PO BID Urinary Issue 04/17/23 05/28/24 History
guaifenesin 100 mg/5 mL oral liquid 100 - 200 mg PO Q4HPRN PRN cough 04/17/23 05/28/24 History
methylcellulose (laxative) 500 mg 1,000 mg PO BID@0800,1600 04/17/23 05/28/24 History
tablet (Citrucel) Constipation
nystatin 100,000 unit/gram topical 1 applic topical BIDPRN PRN rash 04/17/23 05/28/24 History
ointment
pantoprazole 40 mg tablet,delayed 40 mg PO DAILY GERD #30 tabs 04/21/23 05/28/24 Rx
release (Protonix)
furosemide 40 mg tablet 40 mg PO BID@0800,1600 #60 tabs 05/21/23 05/28/24 Rx
spironolactone 25 mg tablet 12.5 mg (1/2 x 25 mg) PO DAILY #30 05/21/23 05/28/24 Rx
tabs
bismuth subsalicylate 525 mg/15 mL 525 mg PO TIDPRN PRN 05/28/24 05/28/24 History
oral suspension (Stomach Relief) nausea/diarrhea
carboxymethylcellulose 0.5 1 drp BOTH EYES DAILYPRN PRN dry 05/28/24 05/28/24 History
%-glycerin 0.9 % eye drops eyes
(Refresh Optive)
ferrous sulfate 325 mg (65 mg 325 mg PO DAILY 05/28/24 05/28/24 History
iron) tablet
furosemide 80 mg tablet 80 mg PO BID@0800,1600 05/28/24 05/28/24 History
potassium chloride 10 mEq 10 meq PO DAILY 05/28/24 05/28/24 History
tablet,extended release
Review of Systems
-
History Source: Patient
Constitutional: No Symptoms
Physical Exam
Vital Signs
Temp Pulse Resp BP Pulse Ox
97.9 F 74 27 120/78 99
05/29/24 07:45 05/29/24 08:45 05/29/24 08:45 05/29/24 08:18 05/29/24 08:45
Lab Results
05/29/24 01:42
Troponin I < 0.012 ng/ml 05/28/24 16:38
Glh-M-Meejjssincz Pept 1290 pg/ml 05/28/24 16:38
GEN: No distress, awake, Ox3
HEENT: supple, anicteric, mmm
LUNGS: Decreased breath sounds right lung one third up, decreased breath sounds left base, no wheezes/rales
CV: Reg, S1/S2, 1/6 syst LSB, no murmur
ABD: soft, BS+, NT/ND
EXT: 1+ edema bilateral lower extremities
NEURO: Gross non-focal
SKIN: No rash
Impression / Plan
-
PCP: Dr. Frank Bustillos
Cardiology: Dr. Lisa
Impression:
Hypotension
Acute HFpEF
Recurrent pleural effusions status post R Thoracentesis 05/25/2024, 05/29/2023 (1150cc), L thoracentesis 04/19/2023
h/o pericardial effusion
pericardiocentesis with 365 ml bloody effusion removed 06/11/22
pathology negative for malignant cells
Asperger syndrome/developmental delay
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
Hyperlipidemia
BPH status post TURP
Seizure history
Recurrent UTI
Laparoscopic cholecystectomy with ventral hernia repair
Scoliosis
Echo 06/09/22: EF 50-55% with pulmonary artery pressure 30 to 35 mmHg, at least moderate pericardial effusion
Echo 06/11/22: Moderate pericardial effusion with resolution of pericardial effusion after the completion of the procedure.
Echo 07/2022 EF 50-55% with mild MR and TR and no pericardial or pleural effusions.
Echo 04/19/2023: EF 55-60%, mild to moderate MR,, mildly dilated left atrium
Echo 04/03/2024: Normal LV size and function, EF 55 to 60%, mild to moderate MR, mild to moderate TR, mobile echodensity in right atrium consistent with prominent Chiari network
Plan:
74-year-old male with history of intellectual disability, scoliosis, seizure disorder, OCD, pericardial effusion status post pericardiocentesis 05/2022 or 365 mL, recurrent pleural effusions, heart failure preserved EF, chronic lower extremity
edema, obstructive sleep apnea, osteopenia, essential tremors, hyperlipidemia, diverticulosis, repair of ventral hernia, cholecystectomy February 2019, BPH status post TURP, pneumonia 02/2024. He was admitted to [facility] March 2023
with acute heart failure exacerbation and again in April 2023 for transient acute encephalopathy.
His outpatient Lasix has been progressively uptitrated over the past several months due to weight gain and worsening lower extremity edema. Had been on Lasix 40 mg bid 12/26/2023 and gradually uptitrated, most recently to 80 mg bid with 3 day
increase to 120 mg bid for increase LE edema.
He had a thoracentesis for 1100 mL on 05/25/2024. On 05/26/2024 his Lasix was uptitrated to 120 mg twice daily for 3-4+ bilateral lower extremity edema. Wt decreased 3 lbs but on 05/28/2023 there were concerns for somnolence with blood pressure
86/57. He was advised to go to the ER. ER workup shows moderate right and small left pleural effusion and he is status post repeat right thoracentesis today/05/29/2023 for 1100 cc. proBNP 1290, troponin negative x 1,
BUN/creatinine 23/1.2, NA 134, K3.9
-Heart failure preserved EF now with hypotension/concerns for somnolence status post uptitration of outpatient diuretics due to lower extremity edema/weight gain.
-Blood pressures in ED improved in ED, 110s- 120s/ 70s. Holding outpatient spironolactone. Not on any other blood pressure lowering meds besides daily furosemide, which is on hold for now. He did receive 1 dose of IV Lasix in ED.
-He is awake and alert and has no complaints and not requiring O2.
-Echo 03/2024 showed preserved EF with mild to moderate MR and TR.
�I/O, daily weights
-gradual reintroduction of diuretics
-workup cause of recurrent pleural effusions
-compression stocking to LEs
-EKG NSR, telemetry personally reviewed, normal sinus rhythm 70s
Data Reviewed
-
EKG: Tracing Personally Visualized and interpreted
Labs: Labs Reviewed by me
[2024-05-29 10:03] LABS: Glucose 74 mg/dl (70-99); Total Protein 5.1 g/dl (6.3-8.2)
[2024-05-29 10:06] LABS: Body Fluid Second Tech EF
[2024-05-29 14:48] LABS: Body Fluid LDH 211 U/L
[2024-05-29 14:49] LABS: LDH 207 U/L (120-246)
--- NOTE | 2024-05-29 16:42 | W.PN.HOSP.TC ---
Today's Communication/Plan
-
effusion exudative; s/p thora; recurrent pleural effusions may be in part due to ? ascites/cirrhosis
f/u abd sono, may need to engage GI
thoracentesis will not resolve pleural effusions if in fact from ascitic fluid
Assessment / Plan
Assessment / Plan
GEN: No distress, awake, Ox3
HEENT: supple, anicteric, mmm
LUNGS: Decreased breath sounds right lung one third up, decreased breath sounds left base, no wheezes/rales
CV: Reg, S1/S2, 1/6 syst LSB, no murmur
ABD: soft, BS+, NT/ND
EXT: 1+ edema bilateral lower extremities
NEURO: Gross non-focal
SKIN: No rash
Acute on chr HFpEF
-now mildly hypotensive
-hold lasix today, gently reintroduce
-ECHO without acute abnormalities
#Moderate right and small left pleural effusion
- s/p thora with improved aeration
-diuretics as above
-f/u lights criteria - more than likely chf although has ? cirrhosis
-f/u ruq sono to ensure not from belly - if so - will need to tap
-recurrent effusions may be related to ascites if in fact has cirrhosis
#?Cirrhosis
-f/u afp, ca 19-9
-f/u hep panel
-ruq sono
HX bilateral pleural effusions s/p thoracentesis
HX PNA
Seizure Disorder
- FREIGHT ASSOCIATE Phenobarbital
Autism spectrum with developmental delay chronic--Oriented to name, place
GERD
- stable
- on PPI
HLD
- cont zocor 10 mg daily
Anxiety
- stable
- c/w Lexapro, clonazepam
BPH/ S/P TURP
- c/w bethanechol and tamsulosin 0.4 mg twice daily
DVT PPx: Lovenox
Code: Full
Anticipated Discharge: > 48 hours
Subjective/Interval History
-
Date of Service: May 29, 2024
No acute events overnight
Objective Data
-
Labs:
Laboratory Results
05/29/24
09:10
Glucose 74
Vital Signs:
Vital Signs
Temp Pulse Resp BP Pulse Ox
97.9 F 72 19 93/58 97
05/29/24 07:45 05/29/24 15:15 05/29/24 15:15 05/29/24 15:00 05/29/24 13:15
Review of Systems
-
History Source: Patient
All other systems: Not reviewed unless documented
Physical Exam
-
General: Well Developed, Well Nourished and No Apparent Distress
HEENT: Normocephalic and Atraumatic
Respiratory: Clear to Auscultation; Negative Wheezes or Rhonchi
Cardiac: Regular Rhythm and S1/S2; Negative Murmur
GI: Soft, Nontender and Nondistended
Musculoskeletal: No Clubbing and No Cyanosis
Skin: Warm
Neuro: Awake
Psych: Calm
Data Reviewed
-
Diagnostic Radiology: Report Reviewed by me
Medical Tests (Nuc Med, Echo etc): Report Reviewed by me
Labs: Labs Reviewed by me
[2024-05-29] MEDS: LOVENOX 40 MG SC (17:48)
[2024-05-29] MEDS: LIPITOR 10 MG PO (17:48)
[2024-05-29 18:07] LABS: LDH 194 U/L (120-246)
[2024-05-29 19:11] LABS: Hepatitis B Surface Antigen Negative (Negative)
[2024-05-29 19:15] LABS: Hepatitis A IgM Antibody Negative (Negative); Hepatitis B Core Ab, IgM Negative (Negative)
[2024-05-29 19:16] LABS: AFP Male/Tumor Marker 2.08 ng/ml
[2024-05-29 19:28] LABS: Hepatitis B Surface Antibody Negative; Hepatitis C Antibody Negative (Negative)
[2024-05-30] VITALS (10 sets, daily range): BP systolic 90–108; BP diastolic 61–92; BMI 23.4
[2024-05-30 06:21] LABS: Hematocrit 40.4 % (39.0-52.0); Hemoglobin 13.8 g/dL (13.0-18.0); Mean Corp Hgb Conc. 34.2 g/dL (33.0-37.0); Mean Corpuscular Hgb 32.1 pg (27.0-31.0); Mean Platelet Volume 10.7 fL (7.4-10.4); Platelet Count 219 10^3/uL (130-400); Red Cell Dist. Width 13.7 % (11.5-14.5); White Blood Cell Count 4.8 10^3/uL (4.8-10.8)
[2024-05-30 06:35] LABS: AST (SGOT) 30 U/L (17-59); Albumin 2.8 g/dl (3.5-5.0); Alkaline Phosphatase 193 U/L (38-126); Blood Urea Nitrogen 23 mg/dl (9-20); Calcium 8.2 mg/dl (8.4-10.2); Carbon Dioxide 25 mmol/L (22-30); Chloride 102 mmol/L (98-107); Estimated Creatinine Clearance 69 ml/min; Glucose 82 mg/dl (70-99); Potassium 3.8 mmol/L (3.5-5.1); Sodium 136 mmol/L (135-145); Total Bilirubin 0.7 mg/dl (0.2-1.3); Total Protein 5.3 g/dl (6.3-8.2); eGFR > 60.00
[2024-05-30 08:49] LABS: ALT (SGPT) 23 U/L (0-50)
[2024-05-30] MEDS: LUMINAL 32.4 MG PO ×3 (10:26→16:47)
[2024-05-30] MEDS: LEXAPRO 5 MG PO (10:27)
[2024-05-30] MEDS: PROTONIX 40 MG PO (10:27)
[2024-05-30] MEDS: KLONOPIN 0.5 MG PO ×2 (10:27→19:45)
[2024-05-30] MEDS: LEXAPRO 10 MG PO (10:27)
[2024-05-30] MEDS: LOW STRENGTH ASPIRIN 81 MG PO (10:27)
--- NOTE | 2024-05-30 11:10 | W.PN.CARDCBS ---
Today's Communication / Plan
-
Difficult volume status
Restart Lasix at 40 mg p.o. twice daily
Continue to hold Aldactone
Impression / Plan
-
PCP: Dr. Frank Bustillos
Cardiology: Dr. Lisa
Impression:
Hypotension
Acute HFpEF
Recurrent pleural effusions status post R Thoracentesis 05/25/2024, 05/29/2023 (1150cc), L thoracentesis 04/19/2023
h/o pericardial effusion
pericardiocentesis with 365 ml bloody effusion removed 06/11/22
pathology negative for malignant cells
Asperger syndrome/developmental delay
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
Hyperlipidemia
BPH status post TURP
Seizure history
Recurrent UTI
Laparoscopic cholecystectomy with ventral hernia repair
Scoliosis
Echo 06/09/22: EF 50-55% with pulmonary artery pressure 30 to 35 mmHg, at least moderate pericardial effusion
Echo 06/11/22: Moderate pericardial effusion with resolution of pericardial effusion after the completion of the procedure.
Echo 07/2022 EF 50-55% with mild MR and TR and no pericardial or pleural effusions.
Echo 04/19/2023: EF 55-60%, mild to moderate MR,, mildly dilated left atrium
Echo 04/03/2024: Normal LV size and function, EF 55 to 60%, mild to moderate MR, mild to moderate TR, mobile echodensity in right atrium consistent with prominent Chiari network
Plan:
Difficult volume status.
Aldactone and Lasix have been on hold
Restart Lasix at 40 mg p.o. twice daily
Continue to hold Aldactone
PREADMIT DATA
74-year-old male with history of intellectual disability, scoliosis, seizure disorder, OCD, pericardial effusion status post pericardiocentesis 05/2022 or 365 mL, recurrent pleural effusions, heart failure preserved EF, chronic lower extremity
edema, obstructive sleep apnea, osteopenia, essential tremors, hyperlipidemia, diverticulosis, repair of ventral hernia, cholecystectomy February 2019, BPH status post TURP, pneumonia 02/2024. He was admitted to [facility] March 2023
with acute heart failure exacerbation and again in April 2023 for transient acute encephalopathy.
His outpatient Lasix has been progressively uptitrated over the past several months due to weight gain and worsening lower extremity edema. Had been on Lasix 40 mg bid 12/26/2023 and gradually uptitrated, most recently to 80 mg bid with 3 day
increase to 120 mg bid for increase LE edema.
He had a thoracentesis for 1100 mL on 05/25/2024. On 05/26/2024 his Lasix was uptitrated to 120 mg twice daily for 3-4+ bilateral lower extremity edema. Wt decreased 3 lbs but on 05/28/2023 there were concerns for somnolence with blood pressure
86/57. He was advised to go to the ER. ER workup shows moderate right and small left pleural effusion and he is status post repeat right thoracentesis today/05/29/2023 for 1100 cc. proBNP 1290, troponin negative x 1,
BUN/creatinine 23/1.2, NA 134, K3.9
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
Subjective
Date of Service: May 30, 2024
No complaints
Objective
Labs:
05/30/24 06:10
05/30/24 06:10
Labs
Hgb 13.8 g/dL (13.0-18.0) 05/30/24 06:10
Hct 40.4 % (39.0-52.0) 05/30/24 06:10
Plt Count 219 10^3/uL (130-400) 05/30/24 06:10
Sodium 136 mmol/L (135-145) 05/30/24 06:10
Potassium 3.8 mmol/L (3.5-5.1) 05/30/24 06:10
BUN 23 mg/dl (9-20) H 05/30/24 06:10
Creatinine 0.8 mg/dL (0.7-1.3) 05/30/24 06:10
Glucose 82 mg/dl (70-99) 05/30/24 06:10
Troponins
05/28/24
16:38
Troponin I < 0.012
Vital Signs and I&O:
Vital Signs
Temp Pulse Resp BP Pulse Ox
97.5 F 72 20 102/70 98
05/30/24 07:33 05/30/24 07:06 05/30/24 07:06 05/30/24 07:06 05/30/24 07:06
Vital Signs
Temp Pulse Resp BP Pulse Ox
97.5 F 72 20 102/70 98
05/30/24 07:33 05/30/24 07:06 05/30/24 07:06 05/30/24 07:06 05/30/24 07:06
Physical Exam
Physical Exam
General: Well developed, well nourished in NAD.
Neck: Supple, no JVD, HJR, carotids +2 B/L, no bruits bilaterally.
Heart: Non displaced PMI, RRR, no murmurs, No S3, S4, no rubs.
Lungs: Scattered rhonchi with poor effort
Extremities: No clubbing, cyanosis or edema bilaterally.
Neuro: Grossly nonfocal, awake, alert and oriented x3.
--- NOTE | 2024-05-30 13:59 | PTCARENOTE ---
Gave report to DANIEL Oneal RN. Room 2257-cleaning in progress.
--- NOTE | 2024-05-30 15:25 | W.PN.HOSP.TC ---
Today's Communication/Plan
-
resume po lasix
Assessment / Plan
Assessment / Plan
GEN: No distress, awake, Ox3
HEENT: supple, anicteric, mmm
LUNGS: Decreased breath sounds right lung one third up, decreased breath sounds left base, no wheezes/rales
CV: Reg, S1/S2, 1/6 syst LSB, no murmur
ABD: soft, BS+, NT/ND
EXT: 1+ edema bilateral lower extremities
NEURO: Gross non-focal
SKIN: No rash
Acute on chr HFpEF
-volume status difficult
-Reduce Lasix 40 mg twice daily today
-ECHO without acute abnormalities
-hold aldactone
#Moderate right and small left pleural effusion
- s/p thora with improved aeration
-diuretics as above
-f/u lights criteria - more than likely chf although has ? cirrhosis
-f/u ruq sono to ensure not from belly - if so - will need to tap
-recurrent effusions may be related to ascites if in fact has cirrhosis
-abd sono with no ascitic fluid to have diagnostic tap
#?Cirrhosis
-f/u afp, ca 19-9
-f/u hep panel
-ruq sono - not enough fluid for diag tap
-will need to follow up ouppt for possible SAAG analysis
HX bilateral pleural effusions s/p thoracentesis
HX PNA
Seizure Disorder
- PRESS WASHER Phenobarbital
Autism spectrum with developmental delay chronic--Oriented to name, place
GERD
- stable
- on PPI
HLD
- cont zocor 10 mg daily
Anxiety
- stable
- c/w Lexapro, clonazepam
BPH/ S/P TURP
- c/w bethanechol and tamsulosin 0.4 mg twice daily
DVT PPx: Lovenox
Code: Full
Anticipated Discharge: 24 - 48 hours
Subjective/Interval History
-
Date of Service: May 30, 2024
No acute events
Objective Data
-
Labs:
Laboratory Results
05/30/24
06:10
WBC 4.8
Hgb 13.8
Hct 40.4
Plt Count 219
Sodium 136
Potassium 3.8
Chloride 102
Carbon Dioxide 25
BUN 23 H
Creatinine 0.8
Glucose 82
Calcium 8.2 L
Total Bilirubin 0.7
AST 30
ALT 23
Alkaline Phosphatase 193 H
Vital Signs:
Vital Signs
Temp Pulse Resp BP Pulse Ox
97.9 F 81 16 108/92 98
05/30/24 14:53 05/30/24 14:53 05/30/24 14:53 05/30/24 14:52 05/30/24 14:53
Review of Systems
-
History Source: Patient
All other systems: Not reviewed unless documented
Physical Exam
-
General: Well Developed, Well Nourished and No Apparent Distress
HEENT: Normocephalic and Atraumatic
Respiratory: Clear to Auscultation; Negative Wheezes or Rhonchi
Cardiac: Regular Rhythm and S1/S2; Negative Murmur
GI: Soft, Nontender and Nondistended
Musculoskeletal: No Clubbing and No Cyanosis
Skin: Warm
Neuro: Awake
Psych: Calm
Data Reviewed
-
Diagnostic Radiology: Report Reviewed by me
Medical Tests (Nuc Med, Echo etc): Report Reviewed by me
Labs: Labs Reviewed by me
--- NOTE | 2024-05-30 15:36 | PTCARENOTE ---
Assumed care of pt from ED as overflow. Pt arrives awake and alert, Ox2. VSS, CM shows NSR 70's, POX 98% on RA. Pt has Asberger's at baseline, very pleasant, watches cars pass the window on the bypass. Urine postive for ESBL. Oriented to room
and surroundings.
[2024-05-30] MEDS: LIPITOR 10 MG PO (17:41)
[2024-05-30] MEDS: LOVENOX 40 MG SC (17:41)
[2024-05-30] MEDS: FLOMAX 0.4 MG PO (19:45)
--- NOTE | 2024-05-30 21:24 | PTCARENOTE ---
pt received at change of shift, pt AOx3, but history of asperbers and OCD. tele reading NSR. no complaints of pain at this time. RN explained plan of care, pt nods head yes in response. Call noriega within reach, fall risk precautions in place.
continuing to monitor at this time.
[2024-05-31] VITALS (19 sets, daily range): BP systolic 81–109; BP diastolic 56–71; BMI 23.8
[2024-05-31 04:02] LABS: Hematocrit 36.9 % (39.0-52.0); Hemoglobin 12.7 g/dL (13.0-18.0); Mean Corp Hgb Conc. 34.4 g/dL (33.0-37.0); Mean Corpuscular Volume 92.9 fL (80.0-94.0); Mean Platelet Volume 10.5 fL (7.4-10.4); Platelet Count 205 10^3/uL (130-400); Red Blood Cell Count 3.97 10^6/uL (4.70-6.10); Red Cell Dist. Width 13.5 % (11.5-14.5); White Blood Cell Count 4.9 10^3/uL (4.8-10.8)
[2024-05-31 04:24] LABS: ALT (SGPT) 22 U/L (0-50); AST (SGOT) 27 U/L (17-59); Albumin 2.8 g/dl (3.5-5.0); Alkaline Phosphatase 189 U/L (38-126); Blood Urea Nitrogen 23 mg/dl (9-20); Calcium 8.2 mg/dl (8.4-10.2); Carbon Dioxide 29 mmol/L (22-30); Chloride 98 mmol/L (98-107); Estimated Creatinine Clearance 69 ml/min; Glucose 81 mg/dl (70-99); Potassium 3.8 mmol/L (3.5-5.1); Sodium 133 mmol/L (135-145); Total Bilirubin 0.7 mg/dl (0.2-1.3); Total Protein 5.1 g/dl (6.3-8.2); eGFR > 60.00
[2024-05-31] MEDS: FLOMAX 0.4 MG PO ×2 (08:45→19:52)
[2024-05-31] MEDS: LUMINAL 32.4 MG PO ×3 (08:45→16:32)
[2024-05-31] MEDS: LOW STRENGTH ASPIRIN 81 MG PO (08:45)
[2024-05-31] MEDS: KLONOPIN 0.5 MG PO ×2 (08:46→19:52)
[2024-05-31] MEDS: PROTONIX 40 MG PO (08:46)
[2024-05-31] MEDS: LEXAPRO 10 MG PO (08:46)
[2024-05-31] MEDS: LEXAPRO 5 MG PO (08:46)
--- NOTE | 2024-05-31 10:23 | PTCARENOTE ---
Assumed care of pt from night RN. Pt received awake and alert, watching cars from bed. VSS, CORDELL shows NSR 70's, POX 98% on RA. Offers no c/o pain or discomfort.
--- NOTE | 2024-05-31 10:30 | CM ---
asked by hospitalist to see if pt could go back to his home today. i first spoke with pts sister, dana meeks [phone], she tells me pt lives in a residential, pt has cerebral palsy and aspergers. he is prev indep. she said he is very weak and
would like to see if he can go to rehab. called pts residential- family and friends- [phone], spoke to Abdelrahman one of the support coordinator, they confirmed that they could not accept him today, updated them on pts dc plan. cm to call friends and family
today with update . awaiting PT/OT eval.
--- NOTE | 2024-05-31 10:33 | W.PN.CARDCBS ---
Today's Communication / Plan
-
Stable cardiology status
Continue to hold Aldactone
Sign off
Impression / Plan
-
PCP: Dr. Frank Bustillos
Cardiology: Dr. Lisa
Impression:
Hypotension
Acute HFpEF
Recurrent pleural effusions status post R Thoracentesis 05/25/2024, 05/29/2023 (1150cc), L thoracentesis 04/19/2023
h/o pericardial effusion
pericardiocentesis with 365 ml bloody effusion removed 06/11/22
pathology negative for malignant cells
Asperger syndrome/developmental delay
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
Hyperlipidemia
BPH status post TURP
Seizure history
Recurrent UTI
Laparoscopic cholecystectomy with ventral hernia repair
Scoliosis
Echo 06/09/22: EF 50-55% with pulmonary artery pressure 30 to 35 mmHg, at least moderate pericardial effusion
Echo 06/11/22: Moderate pericardial effusion with resolution of pericardial effusion after the completion of the procedure.
Echo 07/2022 EF 50-55% with mild MR and TR and no pericardial or pleural effusions.
Echo 04/19/2023: EF 55-60%, mild to moderate MR,, mildly dilated left atrium
Echo 04/03/2024: Normal LV size and function, EF 55 to 60%, mild to moderate MR, mild to moderate TR, mobile echodensity in right atrium consistent with prominent Chiari network
Plan:
Volume status appears reasonable entrance on room air
Continue oral Lasix
Continue to hold Aldactone provide blood pressure
Will sign off, call with question
PREADMIT DATA
74-year-old male with history of intellectual disability, scoliosis, seizure disorder, OCD, pericardial effusion status post pericardiocentesis 05/2022 or 365 mL, recurrent pleural effusions, heart failure preserved EF, chronic lower extremity
edema, obstructive sleep apnea, osteopenia, essential tremors, hyperlipidemia, diverticulosis, repair of ventral hernia, cholecystectomy February 2019, BPH status post TURP, pneumonia 02/2024. He was admitted to [facility] March 2023
with acute heart failure exacerbation and again in April 2023 for transient acute encephalopathy.
His outpatient Lasix has been progressively uptitrated over the past several months due to weight gain and worsening lower extremity edema. Had been on Lasix 40 mg bid 12/26/2023 and gradually uptitrated, most recently to 80 mg bid with 3 day
increase to 120 mg bid for increase LE edema.
He had a thoracentesis for 1100 mL on 05/25/2024. On 05/26/2024 his Lasix was uptitrated to 120 mg twice daily for 3-4+ bilateral lower extremity edema. Wt decreased 3 lbs but on 05/28/2023 there were concerns for somnolence with blood pressure
86/57. He was advised to go to the ER. ER workup shows moderate right and small left pleural effusion and he is status post repeat right thoracentesis today/05/29/2023 for 1100 cc. proBNP 1290, troponin negative x 1,
BUN/creatinine 23/1.2, NA 134, K3.9
Progress Note - Assembly Manager
Subjective
Date of Service: May 31, 2024
No complaints
Objective
Labs:
05/31/24 03:32
05/31/24 03:32
Labs
Hgb 12.7 g/dL (13.0-18.0) L 05/31/24 03:32
Hct 36.9 % (39.0-52.0) L 05/31/24 03:32
Plt Count 205 10^3/uL (130-400) 05/31/24 03:32
Sodium 133 mmol/L (135-145) L 05/31/24 03:32
Potassium 3.8 mmol/L (3.5-5.1) 05/31/24 03:32
BUN 23 mg/dl (9-20) H 05/31/24 03:32
Creatinine 0.8 mg/dL (0.7-1.3) 05/31/24 03:32
Glucose 81 mg/dl (70-99) 05/31/24 03:32
Troponins
05/28/24
16:38
Troponin I < 0.012
Vital Signs and I&O:
Vital Signs
Temp Pulse Resp BP Pulse Ox
98.8 F 85 20 94/67 98
05/31/24 07:35 05/31/24 07:37 05/31/24 07:35 05/31/24 07:37 05/31/24 10:13
Vital Signs
Temp Pulse Resp BP Pulse Ox
98.8 F 85 20 94/67 98
05/31/24 07:35 05/31/24 07:37 05/31/24 07:35 05/31/24 07:37 05/31/24 10:13
Physical Exam
Physical Exam
General: Well developed, well nourished in NAD.
Neck: Supple, no JVD, HJR, carotids +2 B/L, no bruits bilaterally.
Heart: Non displaced PMI, RRR, no murmurs, No S3, S4, no rubs.
Lungs: Scattered rhonchi
Extremities: No clubbing, cyanosis or edema bilaterally.
Neuro: Grossly nonfocal, awake, alert and oriented x3.
--- NOTE | 2024-05-31 13:23 | W.PN.HOSP.TC ---
Addendum entered and electronically signed by Rojelio Rodriguez MD 05/31/24 16:33:
Went into rapid A-fib, started on Cardizem drip. Holding discharge. May need to hold Lasix depending on blood pressures
Original Note:
Today's Communication/Plan
-
resume lasix 40mg bid
hold aldactone
f/u pcp, cards, gi outpt
Assessment / Plan
Assessment / Plan
GEN: No distress, awake, Ox3
HEENT: supple, anicteric, mmm
LUNGS: Decreased breath sounds right lung one third up, decreased breath sounds left base, no wheezes/rales
CV: Reg, S1/S2, 1/6 syst LSB, no murmur
ABD: soft, BS+, NT/ND
EXT: 1+ edema bilateral lower extremities
NEURO: Gross non-focal
SKIN: No rash
Acute on chr HFpEF
-volume status difficult
-Reduce Lasix 40 mg twice daily today
-ECHO without acute abnormalities
-hold aldactone
#Moderate right and small left pleural effusion
- s/p thora with improved aeration
-diuretics as above
-f/u lights criteria - more than likely chf although has ? cirrhosis
-f/u ruq sono to ensure not from belly - if so - will need to tap
-recurrent effusions may be related to ascites if in fact has cirrhosis - unclear etiology of cirrhosis
-abd sono with no ascitic fluid to have diagnostic tap
#?Cirrhosis
-f/u afp, ca 19-9
-f/u hep panel
-ruq sono - not enough fluid for diag tap
-will need to follow up outpt for possible SAAG analysis
HX bilateral pleural effusions s/p thoracentesis
HX PNA
Seizure Disorder
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
Autism spectrum with developmental delay chronic--Oriented to name, place
GERD
- stable
- on PPI
HLD
- cont zocor 10 mg daily
Anxiety
- stable
- c/w Lexapro, clonazepam
BPH/ S/P TURP
- c/w bethanechol and tamsulosin 0.4 mg twice daily
DVT PPx: Lovenox
Code: Full
More than 30 minutes spent in discharge including
Final examination of the patient
Summarizing hospital stay
Instructions for continuing care to all relevant caregivers
Preparation of discharge records, prescriptions, and referral forms
Total time spent (36 in minutes):
Anticipated Discharge: Today
Subjective/Interval History
-
Date of Service: May 31, 2024
No acute events overnight
Objective Data
-
Labs:
Laboratory Results
05/31/24
03:32
WBC 4.9
Hgb 12.7 L
Hct 36.9 L
Plt Count 205
Sodium 133 L
Potassium 3.8
Chloride 98
Carbon Dioxide 29
BUN 23 H
Creatinine 0.8
Glucose 81
Calcium 8.2 L
Total Bilirubin 0.7
AST 27
ALT 22
Alkaline Phosphatase 189 H
Vital Signs:
Vital Signs
Temp Pulse Resp BP Pulse Ox
97.3 F 78 20 105/71 96
05/31/24 12:02 05/31/24 12:05 05/31/24 12:02 05/31/24 12:05 05/31/24 12:02
Review of Systems
-
History Source: Patient
All other systems: Not reviewed unless documented
Physical Exam
-
General: Well Developed, Well Nourished and No Apparent Distress
HEENT: Normocephalic and Atraumatic
Respiratory: Clear to Auscultation; Negative Wheezes or Rhonchi
Cardiac: Regular Rhythm and S1/S2; Negative Murmur
GI: Soft, Nontender and Nondistended
Musculoskeletal: No Clubbing and No Cyanosis
Skin: Warm
Neuro: Awake
Psych: Calm
Data Reviewed
-
Diagnostic Radiology: Report Reviewed by me
Medical Tests (Nuc Med, Echo etc): Report Reviewed by me
Labs: Labs Reviewed by me
--- NOTE | 2024-05-31 13:25 | W.DS.TRANS ---
DC Summary - Ed Educational Aide
-
Discharge Instructions:
Discharge Diagnosis/Procedures Acute on chronic HFpEF
Diet Low Fat,Low Cholesterol,Restrict fluids to 48 oz
Activity As tolerated
Blood Work cbc and cmp in 3-5 days
Others Tests cirrhosis work up
Instructions:
Stand-Alone Forms:
Changes to Home Medications: Yes
Discharge Medications:
DC Medications w/original date entered in [employer]
chlorhexidine gluconate 0.12 % mouthwash 15 ml mucous membrane BID DENTAL 02/24/19
clonazepam 0.5 mg tablet 0.5 mg PO BID Mental Health/Anxiety 02/24/19
docusate sodium 100 mg capsule 100 mg PO BID@0800,1600 Constipation 02/24/19
phenobarbital 32.4 mg tablet 32.4 mg PO TID@0800,1200,1600 Seizures 02/24/19
calcium 500 mg (as carbonate)-vitamin D3 5 mcg (200 unit) tablet (Oyster Shell Calcium-Vitamin D3) 1 tab PO BID@0800,1600 Supplement 12/07/21
polyethylene glycol 3350 17 gram oral powder packet 17 grams PO DAILY Constipation 12/07/21
aspirin 81 mg chewable tablet 81 mg PO DAILY Blood clot prevention/tx 02/13/22
escitalopram oxalate 10 mg tablet 10 mg PO DAILY Mental Health/Anxiety 02/13/22
escitalopram oxalate 5 mg tablet 5 mg PO DAILY Mental Health/Anxiety 02/13/22
simvastatin 10 mg tablet 10 mg PO QPM High cholesterol 02/13/22
tamsulosin 0.4 mg capsule 0.4 mg PO BID Urinary issue 02/13/22
acetaminophen 325 mg tablet 650 mg PO Q4HPRN PRN mild pain/fever 04/17/23
bethanechol chloride 25 mg tablet 25 mg PO BID Urinary Issue 04/17/23
guaifenesin 100 mg/5 mL oral liquid 100 - 200 mg PO Q4HPRN PRN cough 04/17/23
methylcellulose (laxative) 500 mg tablet (Citrucel) 1,000 mg PO BID@0800,1600 Constipation 04/17/23
nystatin 100,000 unit/gram topical ointment 1 applic topical BIDPRN PRN rash 04/17/23
pantoprazole 40 mg tablet,delayed release (Protonix) 40 mg PO DAILY GERD #30 tabs 04/21/23
furosemide 40 mg tablet 40 mg PO BID@0800,1600 #60 tabs 05/21/23
spironolactone 25 mg tablet 12.5 mg (1/2 x 25 mg) PO DAILY #30 tabs 05/21/23
bismuth subsalicylate 525 mg/15 mL oral suspension (Stomach Relief) 525 mg PO TIDPRN PRN nausea/diarrhea 05/28/24
carboxymethylcellulose 0.5 %-glycerin 0.9 % eye drops (Refresh Optive) 1 drp BOTH EYES DAILYPRN PRN dry eyes 05/28/24
ferrous sulfate 325 mg (65 mg iron) tablet 325 mg PO DAILY 05/28/24
potassium chloride 10 mEq tablet,extended release 10 meq PO DAILY 05/28/24
Home Medication Changes
Stop Lasix 80 mg twice daily
Pending Results: No
--- NOTE | 2024-05-31 15:30 | PTCARENOTE ---
Responded to pt's CM which was indicating AF 130-140's. b/p 90/70. Dr. Hardy made aware, pt bolused with 10 mg Cardizem IV and started on Cardizem drip at 5 mg/hr. B/P dropped to 80's so drip decreased to 2.5 mg/hr. Pt converted back to NSR at
1545.
[2024-05-31] MEDS: CARDIZEM 10 MG IV (15:32)
[2024-05-31] MEDS: CARDIZEM 125 IV (15:39)
[2024-05-31] MEDS: LASIX PO (16:31)
[2024-05-31] MEDS: LOVENOX 40 MG SC (17:23)
[2024-05-31] MEDS: LIPITOR 10 MG PO (17:23)
[2024-05-31 18:26] LABS: CA 19-9 22 U/mL (<=35)
--- NOTE | 2024-05-31 20:51 | PTCARENOTE ---
Patient received at change of shift resting comfortably in bed. Patient in and out of atrial fibrillation on shelter monitor, presently in NSR. Diltiazem gtt infusing at 2.5mg/hr per order. Patient offers no complaints at this time. Remains on
room air with oxygen saturation 99-100%. Call noriega is within reach. Plan of care discussed with patient. Care ongoing.
[2024-06-01] VITALS (12 sets, daily range): BP systolic 89–111; BP diastolic 58–75; PULSE 68–69; O2SAT 98–100; BMI 24.3
[2024-06-01 03:34] LABS: Hematocrit 39.2 % (39.0-52.0); Hemoglobin 13.6 g/dL (13.0-18.0); Mean Corp Hgb Conc. 34.7 g/dL (33.0-37.0); Mean Corpuscular Hgb 32.4 pg (27.0-31.0); Mean Corpuscular Volume 93.3 fL (80.0-94.0); Mean Platelet Volume 10.7 fL (7.4-10.4); Platelet Count 197 10^3/uL (130-400); Red Cell Dist. Width 13.3 % (11.5-14.5); White Blood Cell Count 4.3 10^3/uL (4.8-10.8)
[2024-06-01 03:58] LABS: ALT (SGPT) 23 U/L (0-50); AST (SGOT) 29 U/L (17-59); Albumin 2.9 g/dl (3.5-5.0); Alkaline Phosphatase 191 U/L (38-126); Blood Urea Nitrogen 20 mg/dl (9-20); Calcium 8.1 mg/dl (8.4-10.2); Carbon Dioxide 29 mmol/L (22-30); Chloride 100 mmol/L (98-107); Estimated Creatinine Clearance 69 ml/min; Glucose 87 mg/dl (70-99); Potassium 3.8 mmol/L (3.5-5.1); Sodium 136 mmol/L (135-145); Total Bilirubin 0.6 mg/dl (0.2-1.3); Total Protein 5.2 g/dl (6.3-8.2); eGFR > 60.00
[2024-06-01] MEDS: LUMINAL 32.4 MG PO ×3 (07:41→16:00)
[2024-06-01] MEDS: FLOMAX 0.4 MG PO ×2 (07:41→19:19)
[2024-06-01] MEDS: LEXAPRO 5 MG PO (07:41)
[2024-06-01] MEDS: KLONOPIN 0.5 MG PO ×2 (07:41→19:19)
[2024-06-01] MEDS: LEXAPRO 10 MG PO (07:41)
[2024-06-01] MEDS: LASIX 40 MG PO ×2 (07:42→16:00)
[2024-06-01] MEDS: LOW STRENGTH ASPIRIN 81 MG PO (07:42)
[2024-06-01] MEDS: PROTONIX 40 MG PO (07:42)
--- NOTE | 2024-06-01 08:19 | W.PN.CARDCBS ---
Addendum entered and electronically signed by Jerald Hardy MD 06/01/24 10:27:
I saw and examined the patient.
The COUNTRY SALES MANAGER or PA's note was reviewed and I agree with the note.
Comment: General: Well developed, well nourished in NAD.
Neck: Supple, no JVD, HJR, carotids +2 B/L, no bruits bilaterally.
Heart: Non displaced PMI, RRR, no murmurs, No S3, S4, no rubs.
Lungs: Scattered rhonchi
Extremities: No clubbing, cyanosis or edema bilaterally.
Neuro: Grossly nonfocal, awake, alert and oriented x3.
Was in A-fib but has spontaneously converted to sinus rhythm. Will stop IV Cardizem and start Toprol. Volume status reasonable on oral Lasix. Continue to hold Aldactone. Will check into cost of Eliquis but will start Eliquis as no recent falls
or bleeding. PT is evaluated patient and may need rehab. Stable cardiology status for discharge.
Original Note:
Today's Communication / Plan
-
Continue PO lasix 40mg daily
Stop cardizem gtt. In SR on tele
CM to eval cost of Eliquis
Low dose Toprol added w/ hold parameters
Will arrange follow up.
Impression / Plan
-
PCP: Dr. Frank Bustillos
Cardiology: Dr. Lisa
Impression:
Hypotension
Acute HFpEF
Recurrent pleural effusions
status post R Thoracentesis 05/25/2024, 05/29/2023 (1150cc)
s/p L thoracentesis 04/19/2023
h/o pericardial effusion
pericardiocentesis with 365 ml bloody effusion removed 06/11/22
pathology negative for malignant cells
Asperger syndrome/developmental delay
History of ACUTE CARE PHYSICAL THERAPIST shunt
Hyperlipidemia
BPH status post TURP
Seizure history
Recurrent UTI
Laparoscopic cholecystectomy with ventral hernia repair
Scoliosis
Echo 06/09/22: EF 50-55% with pulmonary artery pressure 30 to 35 mmHg, at least moderate pericardial effusion
Echo 06/11/22: Moderate pericardial effusion with resolution of pericardial effusion after the completion of the procedure.
Echo 07/2022: EF 50-55% with mild MR and TR and no pericardial or pleural effusions.
Echo 04/19/2023: EF 55-60%, mild to moderate MR,, mildly dilated left atrium
Echo 04/03/2024: EF 55 to 60%, mild to moderate MR, mild to moderate TR, mobile echodensity in right atrium consistent with prominent Chiari network
Plan:
-Presented with hypotension and acute heart failure exacerbation.
-Diuresed with IV laisx. Transitioned to PO lasix 40mg BID 06/01.
-Creat stable at 0.8. Weight down to 139lbs.
-In afternoon 05/31, went into rapid atrial fibrillation. New diagnosis.
-HR controlled overnight on Cardizem gtt.
-In SR this AM on telemetry. HR stable. Will stop cardizem gtt.
-He has been hypotensive, so addition of rate control medication may be difficult. Will try low dose Toprol 12.5mg daily w/ hold parameters.
-Will have CM assess the cost of Eliquis 5mg BID. [id number] VASc score at least 2.
-Check TSH.
-Will arrange follow up.
HPI: 74-year-old male with history of intellectual disability, scoliosis, seizure disorder, OCD, pericardial effusion status post pericardiocentesis 05/2022 or 365 mL, recurrent pleural effusions, heart failure preserved EF, chronic lower extremity
edema, obstructive sleep apnea, osteopenia, essential tremors, hyperlipidemia, diverticulosis, repair of ventral hernia, cholecystectomy February 2019, BPH status post TURP, pneumonia 02/2024. He was admitted to [facility] March 2023
with acute heart failure exacerbation and again in April 2023 for transient acute encephalopathy. His outpatient Lasix has been progressively uptitrated over the past several months due to weight gain and worsening lower extremity edema. Had
been on Lasix 40 mg bid 12/26/2023 and gradually uptitrated, most recently to 80 mg bid with 3 day increase to 120 mg bid for increase LE edema.
He had a thoracentesis for 1100 mL on 05/25/2024. On 05/26/2024 his Lasix was uptitrated to 120 mg twice daily for 3-4+ bilateral lower extremity edema. Wt decreased 3 lbs but on 05/28/2023 there were concerns for somnolence with blood pressure
86/57. He was advised to go to the ER. ER workup shows moderate right and small left pleural effusion and he is status post repeat right thoracentesis today/05/29/2023 for 1100 cc. proBNP 1290, troponin negative x 1, BUN/creatinine 23/1.2, NA 134,
K3.9
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
Subjective
Date of Service: June 01, 2024
No complaints. Feeling well.
Objective
Labs:
06/01/24 03:17
06/01/24 03:17
Labs
Hgb 13.6 g/dL (13.0-18.0) 06/01/24 03:17
Hct 39.2 % (39.0-52.0) 06/01/24 03:17
Plt Count 197 10^3/uL (130-400) 06/01/24 03:17
Sodium 136 mmol/L (135-145) 06/01/24 03:17
Potassium 3.8 mmol/L (3.5-5.1) 06/01/24 03:17
BUN 20 mg/dl (9-20) 06/01/24 03:17
Creatinine 0.8 mg/dL (0.7-1.3) 06/01/24 03:17
Glucose 87 mg/dl (70-99) 06/01/24 03:17
Vital Signs and I&O:
Vital Signs
Temp Pulse Resp BP Pulse Ox
98.6 F 72 18 111/65 95
06/01/24 02:51 06/01/24 06:00 06/01/24 02:51 06/01/24 06:00 06/01/24 02:51
Vital Signs
Temp Pulse Resp BP Pulse Ox
98.6 F 72 18 111/65 95
06/01/24 02:51 06/01/24 06:00 06/01/24 02:51 06/01/24 06:00 06/01/24 02:51
Intake & Output
05/30/24 05/31/24 06/01/24 06/02/24
06:59 06:59 06:59 06:59
Intake Total
Balance
Physical Exam
Physical Exam
GEN: No distress, awake, alert, sitting up in chair
HEENT: supple, anicteric, mmm
LUNGS: CTA b/l, no wheezes/rales
CV: Reg, S1/S2, no murmur
EXT: No clubbing, cyanosis, or edema
NEURO: Gross non-focal
SKIN: Warm, dry, no rash
--- NOTE | 2024-06-01 10:27 | W.PN.HOSP.TC ---
Today's Communication/Plan
-
DC
Assessment / Plan
Assessment / Plan
Acute on chr HFpEF
-Improved wt
-Reduced Lasix 40 mg twice daily today
-ECHO without new acute abnormalities
-hold aldactone
#Moderate right and small left pleural effusion
- s/p thora with improved aeration
-diuretics as above
-f/u lights criteria - more than likely chf although has ? cirrhosis
-f/u ruq sono shows no significant ascites
# Paroxysmal atrial fibrillation-went into transient atrial fibrillation with spontaneous return to sinus rhythm. Reviewed by cardiology who started him on Toprol and recommends Eliquis stable from cardiology standpoint for discharge.
#Cirrhosis
-CT imaging of the liver last year showed diffusely heterogeneous enhancement within the liver. Nodularity of the hepatic contour noted. Multiple nonenhancing hepatic cysts noted. Hepatitis serologies negative. AFP tumor marker and CA 19-9
antigen negative
-ruq sono - not enough fluid for diag tap
- follow up outpt with GI
HX bilateral pleural effusions s/p thoracentesis
HX PNA
Seizure Disorder
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
Autism spectrum with developmental delay chronic--Oriented to name, place
GERD
- stable
- on PPI
HLD
- cont zocor 10 mg daily
Anxiety
- stable
- c/w Lexapro, clonazepam
BPH/ S/P TURP
- c/w bethanechol and tamsulosin 0.4 mg twice daily
DVT PPx: Lovenox
Code: Full
PT/OT Eval
DC after evals
More than 30 minutes spent in discharge including
Final examination of the patient
Summarizing hospital stay
Instructions for continuing care to all relevant caregivers
Preparation of discharge records, prescriptions, and referral forms
Total time spent (in minutes): 35
Anticipated Discharge: Today
Subjective/Interval History
-
Date of Service: June 01, 2024
Pleasantly confused. Patient has a history of autism spectrum disorder.
Voicing no specific complaints.
Denies any chest pain, palpitations, or shortness of breath.
Objective Data
-
Labs:
Laboratory Results
06/01/24
03:17
WBC 4.3 L
Hgb 13.6
Hct 39.2
Plt Count 197
Sodium 136
Potassium 3.8
Chloride 100
Carbon Dioxide 29
BUN 20
Creatinine 0.8
Glucose 87
Calcium 8.1 L
Total Bilirubin 0.6
AST 29
ALT 23
Alkaline Phosphatase 191 H
Vital Signs:
Vital Signs
Temp Pulse Resp BP Pulse Ox
98.6 F 72 18 111/65 95
06/01/24 02:51 06/01/24 06:00 06/01/24 02:51 06/01/24 06:00 06/01/24 02:51
I&O
05/31/24 06/01/24 06/02/24
06:59 06:59 06:59
Intake Total 30 / 30
Balance 30 / 30
Review of Systems
-
Unable to obtain full review of systems at this time due to: Other (Cognitive impairment)
Physical Exam
-
General: Comfortable
Respiratory: Non Labored Respirations and Decreased Breath Sounds (at the bases); Negative Wheezes or Accessory Resp Muscle Use
Cardiac: Regular Rhythm and S1/S2; Negative Tachycardic
GI: Soft
Neuro: Awake, Alert and Oriented (self)
Psych: Calm and Confused; Negative Agitated
Data Reviewed
-
Labs: Labs Reviewed by me
[2024-06-01 10:41] LABS: TSH Reflex To Free T4 4.52 uIU/ml (0.47-4.68)
--- NOTE | 2024-06-01 11:08 | CM ---
Pricing of Eliquis 5mg Bid is covered under the patient's prescription plan at $0 copay
[2024-06-01] MEDS: ELIQUIS 5 MG PO ×2 (11:30→19:19)
--- NOTE | 2024-06-01 14:27 | PN.CDI ---
CDI
- -
CDI:
Physician Documentation Request
Admit Date: 05/28/24 23:44
Dear Doctor ,
Please review the following and provide your response in the progress notes.
Clinical Indicators:
Pt admitted with Acute on Chronic HFpEF/Hypotension /pleural effusion
Sodium levels are as below / Pt did get IVF bolus/has been on IV lasix
Laboratory Tests
05/28/24 05/31/24
16:38 03:32
Sodium 134 L 133 L
Based on the above, could you clarify in the progress notes, the appropriate diagnosis, if significant, that supports the above abnormalities and additional evaluation, monitoring and/or treatment rendered:
Hyponatremia
Abnormal lab value only
Other ( please specify)
Use of terms such as suspected, likely, concern for, or probable (associated with a specific diagnosis that is being evaluated, monitored, or treated as if it exists) are acceptable and can be coded in the inpatient setting, when documented at the
time of discharge.
Thank you,
Virginia Robison RN
CDI Specialist
Please use your independent medical judgment in providing your response.
--- NOTE | 2024-06-01 14:32 | PN.CDI ---
CDI
- -
CDI:
Physician Documentation Request
Admit Date: 05/28/24 23:44
Dear Doctor,
Please review the following and provide your response in the progress notes.
Clinical Indicators:
Pt admitted with Acute on Chronic HFpEF/Hypotension
Renal functions are as below/ Pt did get IVF bolus
05/28/24 05/29/24 05/30/24
16:38 01:42 06:10
Creatinine 1.2 0.9 0.8
06/01/24
03:17
Creatinine 0.8
Please clarify which of the following accurately represents the patient's renal status:
ALLIE
Lab value of clinical insignificance
Other ( please specify)
Criteria for ALLIE*
1 Increase in serum creatinine by > or = to 0.3 mg/dL (> or = to 26.5 micromol/L) within 48 hours, OR
2 Increase in serum creatinine to > or = to 1.5 times baseline, which is known or presumed to have occurred within 7 days, OR
3 Urine volume < 0.5 nL/kg/hour for six hours
Use of terms such as suspected, likely, concern for, or probable (associated with a specific diagnosis that is being evaluated, monitored, or treated as if it exists) are acceptable and can be coded in the inpatient setting, when documented at the
time of discharge.
Thank you,
Virginia Robison RN
CDI Specialist
[employer]
Please use your independent medical judgment in providing your response.
*Source: Kidney Disease: Improving Global Outcomes (KDIGO) 2012
--- NOTE | 2024-06-01 14:34 | CM ---
Chart reviewed. 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 I spoke to ALIVIA Blake, who said the patient is an assist there. He does not ambulate on his own and someone is with him when ambulating. PT evaluation
recommending SNF, Lou RN at [facility] said this is patient's baseline. RN to call report to Lou to get Administrative approval to return to [facility] setting. Plan is for the patient to return to [facility] vs SNF. Patient has [employer]
Insurance, will need insurance authorization if he goes to SNF. CM to follow
[2024-06-01] MEDS: LIPITOR 10 MG PO (17:56)
--- NOTE | 2024-06-01 20:47 | PTCARENOTE ---
Patient received at change of shift in the chair, resting comfortably. Remains on room air, oxygen saturation 97-99%. SR on the monitor with PAC's. Patient offers no complaints at this time. Call noriega within reach. Plan of care ongoing.
[2024-06-02 02:31] VITALS: BP 102/68
[2024-06-02 02:32] VITALS: BMI 23.8
[2024-06-02 03:23] LABS: Hematocrit 39.1 % (39.0-52.0); Hemoglobin 13.4 g/dL (13.0-18.0); Mean Corp Hgb Conc. 34.3 g/dL (33.0-37.0); Mean Corpuscular Hgb 32.4 pg (27.0-31.0); Mean Corpuscular Volume 94.7 fL (80.0-94.0); Mean Platelet Volume 11.1 fL (7.4-10.4); Platelet Count 191 10^3/uL (130-400); Red Blood Cell Count 4.13 10^6/uL (4.70-6.10); Red Cell Dist. Width 13.4 % (11.5-14.5); White Blood Cell Count 4.1 10^3/uL (4.8-10.8)
[2024-06-02 04:12] LABS: ALT (SGPT) 23 U/L (0-50); AST (SGOT) 37 U/L (17-59); Albumin 2.9 g/dl (3.5-5.0); Alkaline Phosphatase 180 U/L (38-126); Blood Urea Nitrogen 19 mg/dl (9-20); Calcium 8.1 mg/dl (8.4-10.2); Carbon Dioxide 30 mmol/L (22-30); Chloride 102 mmol/L (98-107); Estimated Creatinine Clearance 78 ml/min; Glucose 88 mg/dl (70-99); Potassium 3.9 mmol/L (3.5-5.1); Sodium 137 mmol/L (135-145); Total Bilirubin 0.6 mg/dl (0.2-1.3); Total Protein 5.3 g/dl (6.3-8.2); eGFR > 60.00
[2024-06-02 06:37] VITALS: BP 100/73
[2024-06-02] MEDS: PROTONIX 40 MG PO (07:18)
[2024-06-02] MEDS: ELIQUIS 5 MG PO (07:18)
[2024-06-02] MEDS: LEXAPRO 5 MG PO (07:18)
[2024-06-02] MEDS: FLOMAX 0.4 MG PO (07:18)
[2024-06-02] MEDS: LOW STRENGTH ASPIRIN 81 MG PO (07:18)
[2024-06-02] MEDS: TOPROL XL 12.5 MG PO (07:18)
[2024-06-02] MEDS: LUMINAL 32.4 MG PO (07:19)
[2024-06-02] MEDS: KLONOPIN 0.5 MG PO (07:19)
[2024-06-02] MEDS: LASIX 40 MG PO (07:19)
[2024-06-02] MEDS: LEXAPRO 10 MG PO (07:19)
--- NOTE | 2024-06-02 08:59 | W.PN.HOSP.TC ---
Addendum entered and electronically signed by Nicholas Jones MD 06/06/24 17:07:
No ALLIE noted
Na 133 abnormal value only
Original Note:
Today's Communication/Plan
-
DC
Assessment / Plan
Assessment / Plan
Acute on chr HFpEF
-Improved wt
-Continue with Lasix 40 mg twice daily
-ECHO without new acute abnormalities
-hold aldactone
#Moderate right and small left pleural effusion
- s/p thora with improved aeration
-diuretics as above
-f/u lights criteria - more than likely chf although has ? cirrhosis
-f/u ruq sono shows no significant ascites
# Paroxysmal atrial fibrillation-went into transient atrial fibrillation with spontaneous return to sinus rhythm. Remains in sinus rhythm. Reviewed by cardiology who started him on Toprol and recommends Eliquis. stable from cardiology standpoint
for discharge.
#Cirrhosis
-CT imaging of the liver last year showed diffusely heterogeneous enhancement within the liver. Nodularity of the hepatic contour noted. Multiple nonenhancing hepatic cysts noted. Hepatitis serologies negative. AFP tumor marker and CA 19-9
antigen negative
-ruq sono - not enough fluid for diag tap
- follow up outpt with GI
HX bilateral pleural effusions s/p thoracentesis
HX PNA
Seizure Disorder
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
Autism spectrum with developmental delay chronic--Oriented to name, place
GERD
- stable
- on PPI
HLD
- cont zocor 10 mg daily
Anxiety
- stable
- c/w Lexapro, clonazepam
BPH/ S/P TURP
- c/w bethanechol and tamsulosin 0.4 mg twice daily
DVT PPx: Lovenox
Code: Full
Medically stable for discharge. Ongoing disposition efforts to his facility with therapies versus SNF
More than 30 minutes spent in discharge including
Final examination of the patient
Summarizing hospital stay
Instructions for continuing care to all relevant caregivers
Preparation of discharge records, prescriptions, and referral forms
Total time spent (in minutes): 35
Anticipated Discharge: Today
Subjective/Interval History
-
Date of Service: June 02, 2024
Sitting in his chair comfortable. Looking out through the window and watching the [place] [address].
'Shall i let you know when i see a big truck?'
Patient is alert but not oriented. No agitation.
No insight into his medical problems. His current autism spectrum disorder.
Denies any chest pain or shortness of breath.
Objective Data
-
Labs:
Laboratory Results
06/02/24
02:44
WBC 4.1 L
Hgb 13.4
Hct 39.1
Plt Count 191
Sodium 137
Potassium 3.9
Chloride 102
Carbon Dioxide 30
BUN 19
Creatinine 0.7
Glucose 88
Calcium 8.1 L
Total Bilirubin 0.6
AST 37
ALT 23
Alkaline Phosphatase 180 H
Vital Signs:
Vital Signs
Temp Pulse Resp BP Pulse Ox
97.5 F 84 16 100/73 97
06/02/24 06:39 06/02/24 06:37 06/02/24 06:39 06/02/24 06:37 06/02/24 06:39
I&O
06/01/24 06/02/24 06/03/24
06:59 06:59 06:59
Intake Total 270 / 270
Balance 270 / 270
Review of Systems
-
Unable to obtain full review of systems at this time due to: Other (Cognitive impairment)
Physical Exam
-
General: Comfortable
Respiratory: Non Labored Respirations; Negative Wheezes, Crackles or Accessory Resp Muscle Use
Cardiac: Regular Rhythm and S1/S2; Negative Tachycardic
GI: Soft
Neuro: Awake and Alert
Psych: Calm and Confused
Data Reviewed
-
Labs: Labs Reviewed by me
--- NOTE | 2024-06-02 10:16 | W.PN.CARDCBS ---
Addendum entered and electronically signed by Davis Lisa DO 06/02/24 12:44:
I saw and examined the patient.
The Rug Measurer's note was reviewed and I agree with the note.
Comment:
Plan:
Transtion to lasix 40 mg PO BID
Remain off aldactone
Remains sinus
Tolerating Eliquis
Echo in 2-4 wks for eval given hx of pericardial effusion in the past.
Outpt follow up arranged
Original Note:
Today's Communication / Plan
-
po lasix 40mg BID
effusion appears exudative per light's criteria
holding aldactone
remains in SR overnight
continue low dose toprol
eliquis 5mg BID
stop asa
needs repeat echo in 2-4 weeks to assess for recurrent pericardial effusion
OP cardiac follow up arranged
for DC
Impression / Plan
-
PCP: Dr. Frank Bustillos
Cardiology: Dr. Lisa
Impression:
Hypotension
Chronic HFpEF
Recurrent pleural effusions
status post R Thoracentesis 05/25/2024, 05/29/2023 (1150cc)
s/p L thoracentesis 04/19/2023
h/o pericardial effusion
pericardiocentesis with 365 ml bloody effusion removed 06/11/22
pathology negative for malignant cells
Asperger syndrome/developmental delay
History of SURVEYOR HELPER ROD shunt
Hyperlipidemia
BPH status post TURP
Seizure history
Recurrent UTI
Laparoscopic cholecystectomy with ventral hernia repair
Scoliosis
Echo 06/09/22: EF 50-55% with pulmonary artery pressure 30 to 35 mmHg, at least moderate pericardial effusion
Echo 06/11/22: Moderate pericardial effusion with resolution of pericardial effusion after the completion of the procedure.
Echo 07/2022: EF 50-55% with mild MR and TR and no pericardial or pleural effusions.
Echo 04/19/2023: EF 55-60%, mild to moderate MR,, mildly dilated left atrium
Echo 04/03/2024: EF 55 to 60%, mild to moderate MR, mild to moderate TR, mobile echodensity in right atrium consistent with prominent Chiari network
ECHO 05/29/24: EF 55 to 60%, dilated bilateral atria, trivial pericardial effusion, pleural effusion present, no significant change compared to prior
Plan:
-Presented with hypotension
-noted to have R pleural effusion requiring thoracenteses 05/25 and 05/29. by light's criteria, appears to be exudative. further work up per primary service
-lasix was initially held on arrival due to hypotension, however then resumed at lower dose of 40mg BID (was on 80mg po BID prior to admission)
-Creat stable at 0.8. Weight down to 136lbs.
-In afternoon 05/31, went into rapid atrial fibrillation. New diagnosis. spontaneously converted to SR 06/01 and remains in SR at this time. toprol 12.5mg daily added. if recurs, consider for AAD therapy
-he has history of bloody pericardial effusion of unknown etiology 05/2022 without recurrence. patient was started on eliquis this admission. OP asa stopped. plan for follow up echo study in 2-4 weeks to eval for pericardial effusion recurrence. hgb
stable at 13.4
-due to hypotension, OP aldactone remains on hold at present
-TSH WNL
-recommended for high protein diet due to hypoalbuminemia
-OP cardiac follow up arranged
-planned for DC today
-d/w nursing
HPI: 74-year-old male with history of intellectual disability, scoliosis, seizure disorder, OCD, pericardial effusion status post pericardiocentesis 05/2022 or 365 mL, recurrent pleural effusions, heart failure preserved EF, chronic lower extremity
edema, obstructive sleep apnea, osteopenia, essential tremors, hyperlipidemia, diverticulosis, repair of ventral hernia, cholecystectomy February 2019, BPH status post TURP, pneumonia 02/2024. He was admitted to [facility] March 2023
with acute heart failure exacerbation and again in April 2023 for transient acute encephalopathy. His outpatient Lasix has been progressively uptitrated over the past several months due to weight gain and worsening lower extremity edema. Had
been on Lasix 40 mg bid 12/26/2023 and gradually uptitrated, most recently to 80 mg bid with 3 day increase to 120 mg bid for increase LE edema.
He had a thoracentesis for 1100 mL on 05/25/2024. On 05/26/2024 his Lasix was uptitrated to 120 mg twice daily for 3-4+ bilateral lower extremity edema. Wt decreased 3 lbs but on 05/28/2023 there were concerns for somnolence with blood pressure
86/57. He was advised to go to the ER. ER workup shows moderate right and small left pleural effusion and he is status post repeat right thoracentesis today/05/29/2023 for 1100 cc. proBNP 1290, troponin negative x 1, BUN/creatinine 23/1.2, NA 134,
K3.9
Progress Note - Brokerage Manager
Subjective
Date of Service: June 02, 2024
no complaints. for DC
Objective
Labs:
06/02/24 02:44
06/02/24 02:44
Labs
Hgb 13.4 g/dL (13.0-18.0) 06/02/24 02:44
Hct 39.1 % (39.0-52.0) 06/02/24 02:44
Plt Count 191 10^3/uL (130-400) 06/02/24 02:44
Sodium 137 mmol/L (135-145) 06/02/24 02:44
Potassium 3.9 mmol/L (3.5-5.1) 06/02/24 02:44
BUN 19 mg/dl (9-20) 06/02/24 02:44
Creatinine 0.7 mg/dL (0.7-1.3) 06/02/24 02:44
Glucose 88 mg/dl (70-99) 06/02/24 02:44
Vital Signs and I&O:
Vital Signs
Temp Pulse Resp BP Pulse Ox
97.5 F 84 16 100/73 97
06/02/24 06:39 06/02/24 06:37 06/02/24 06:39 06/02/24 06:37 06/02/24 06:39
Vital Signs
Temp Pulse Resp BP Pulse Ox
97.5 F 84 16 100/73 97
06/02/24 06:39 06/02/24 06:37 06/02/24 06:39 06/02/24 06:37 06/02/24 06:39
Intake & Output
05/31/24 06/01/24 06/02/24 06/03/24
07:59 07:59 07:59 07:59
Intake Total 30 / 30 240 / 240
Balance 30 / 30 240 / 240
Physical Exam
Physical Exam
GEN: No distress, awake, alert. sitting in chair
HEENT: supple, anicteric, mmm, eomi
LUNGS: CTA B/L, no wheezes
CV: Reg, S1/S2, no murmur
ABD: soft, BS+, NT/ND
EXT: No cyanosis, clubbing, edema
NEURO: Gross non-focal
SKIN: Warm, pink, dry. No rash. Scar L scalp
--- NOTE | 2024-06-02 10:43 | PTCARENOTE ---
Pt received this am with no c/o of pain or sob. Assisted oob to the chair for breakfast. Gait steady with one assist. Room air sat 96%. Monitor reading SR, rate in the 70's.
[2024-06-02 10:50] VITALS: BP 92/62
--- NOTE | 2024-06-02 11:39 | CM ---
Chart reviewed. Patient is an assist with ADLS, lives at [facility], ambulates with a RW. I spoke to Lou, RN, at [facility] and she stated patient is at baseline based on PT evaluation. Someone is always with Dave to
assist when ambulating. Dave does self feed. Lou requested Home PT. [facility] request of [facility] no longer accepts the patients insurance, so unable to accept. [facility].
[facility] to transport patient back to the facility. Plan is for the patient to return to alf with PT.
--- NOTE | 2024-06-02 11:55 | PTCARENOTE ---
Pt discharged back to [facility] with staff from the facility. Discharge instructions given and reviewed with nurse who arrived to bead picker pt. The nurse verbalized complete understanding and also spoke with case management while here.
== END 2024-06-02 11:45 | disposition home health service (06) | DRG 292 ==
LOC: IVU 23:44
PROVIDERS: Emergency Medicine; Internal Medicine; Radiology Vascular & Interventional Radiology; ADMITTING PHYSICIAN Internal Medicine; ATTENDING PHYSICIAN Internal Medicine; CONSULT PHYSICIAN Internal Medicine Cardiovascular Disease; EMERGENCY PHYSICIAN Student in an Organized Health Care Education/Training Program; FAMILY PHYSICIAN Nurse Practitioner
PROC: 0W993ZZ Drainage of Right Pleural Cavity, Percutaneous Approach (ICD-10-PCS; 2024-05-29)
DX: I50.33 Acute on chronic diastolic (congestive) heart failure (principal); F84.5 Asperger's syndrome; I31.39 Other pericardial effusion (noninflammatory); J91.8 Pleural effusion in other conditions classified elsewhere; F70 Mild intellectual disabilities; G40.909 Epilepsy, unspecified, not intractable, without status epilepticus; E78.00 Pure hypercholesterolemia, unspecified; G25.0 Essential tremor; Z90.79 Acquired absence of other genital organ(s); K59.00 Constipation, unspecified; Z98.2 Presence of cerebrospinal fluid drainage device; Z79.899 Other long term (current) drug therapy; Z79.82 Long term (current) use of aspirin; Z87.01 Personal history of pneumonia (recurrent); Z87.440 Personal history of urinary (tract) infections; M41.9 Scoliosis, unspecified; M85.80 Other specified disorders of bone density and structure, unspecified site; K57.30 Diverticulosis of large intestine without perforation or abscess without bleeding; F42.9 Obsessive-compulsive disorder, unspecified; G47.33 Obstructive sleep apnea (adult) (pediatric); F41.9 Anxiety disorder, unspecified; K21.9 Gastro-esophageal reflux disease without esophagitis; I48.0 Paroxysmal atrial fibrillation; K74.60 Unspecified cirrhosis of liver; H26.9 Unspecified cataract; K64.9 Unspecified hemorrhoids; I95.9 Hypotension, unspecified
CPT/HCPCS: 93308; 32555; 71045; 71046; 76705; 80048; 80053; 82105; 82150; 82945; 82947; 83615; 83880; 83986; 84155; 84157; 84443; 84478; 84484; 85014; 85025; 85027; 86301; 86705; 86706; 86709; 86803; 87070; 87205; 87340; 89051; 93005; 93321; 93325; 97163; 97166; 99285

== ENCOUNTER → 2024-06-08 10:50 | Outpatient (REF) | payer OTHER, SELFPAY ==
[2024-06-08 11:41] LABS: % Basophils 0.4 % (0-2); % Eosinophils 2.1 % (0-6); % Immature Granulocytes 0.4 % (0-0.5); % Lymphocytes 6.9 % (20.5-51.1); % Monocytes 10.7 % (1.7-9.3); % Neutrophils 79.5 % (42.2-75.2); Absolute Eosinophils 0.1 10^3/uL (0-0.7); Absolute Lymphocytes 0.3 10^3/uL (1.2-3.4); Absolute Monocytes 0.5 10^3/uL (0.1-0.6); Absolute Neutrophils 3.7 10^3/uL (1.4-6.5); Hemoglobin 13.8 g/dL (13.0-18.0); Mean Corp Hgb Conc. 34.5 g/dL (33.0-37.0); Mean Corpuscular Hgb 32.5 pg (27.0-31.0); Mean Corpuscular Volume 94.1 fL (80.0-94.0); Mean Platelet Volume 10.4 fL (7.4-10.4); Nucleated Red Blood Cells % 0 % (-); Platelet Count 234 10^3/uL (130-400); Red Blood Cell Count 4.25 10^6/uL (4.70-6.10); White Blood Cell Count 4.7 10^3/uL (4.8-10.8)
[2024-06-08 12:16] LABS: ALT (SGPT) 28 U/L (0-50); AST (SGOT) 31 U/L (17-59); Albumin 3.2 g/dl (3.5-5.0); Alkaline Phosphatase 200 U/L (38-126); Blood Urea Nitrogen 28 mg/dl (9-20); Calcium 8.7 mg/dl (8.4-10.2); Carbon Dioxide 30 mmol/L (22-30); Chloride 97 mmol/L (98-107); Glucose 70 mg/dl (70-99); Potassium 3.9 mmol/L (3.5-5.1); Sodium 135 mmol/L (135-145); Total Bilirubin 0.5 mg/dl (0.2-1.3); Total Protein 5.6 g/dl (6.3-8.2); eGFR > 60.00
== END ==
LOC: REG 10:50
PROVIDERS: ATTENDING PHYSICIAN Nurse Practitioner; OTHER PHYSICIAN Nuclear Medicine Nuclear Cardiology
DX: I50.32 Chronic diastolic (congestive) heart failure (principal); I31.39 Other pericardial effusion (noninflammatory); I10 Essential (primary) hypertension
CPT/HCPCS: 36415; 80053; 85025

== ENCOUNTER 2024-06-13 11:58 | Emergency (ER) | payer OTHER, SELFPAY ==
[2024-06-13 12:03] VITALS: BP 103/62
--- NOTE | 2024-06-13 14:18 | ED.GENMED ---
History of Present Illness
General
Chief Complaint: Head Injury
Source: patient
Exam Limitations: none
Time Seen by Provider: 06/13/24 13:37
Nursing documentation reviewed up to this point in time: agreed with
History of Present Illness
History of Present Illness:
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
PAF on Eliquis
had fall today backwards and hit head
no LOC
apparently at his baseline mental status
no vomiting, confusion, neck pain, weakness.
pt can recall his fall
Past History
Past History
ED Past Medical History: Hypercholesterolemia, Seizures, Psychiatric (OCD) and Other (Diverticulosis, Asperger's developmental delays, Mild Mental retardation, Essential tremors, Hemorrhoids, )
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 Hernia repair Ventril, Cataracts, )
Social History
Tobacco: Non-smoker
Alcohol: None
Drug: None
Personal: Single
Living: assisted living ([facility])
Employment: Not employed
Review of Systems
Review of Systems
Allergies reviewed?: Yes
All Other Systems: Not applicable
Phy Exam
Physical Exam
Physical Exam:
GENERAL: Alert , in no apparent distress
HEAD: old scars to scalp from vp emerging media shunt
hematoma R posterior scalp, mild tenderness
NECK: no midline tenderness, active ROM intact, no paraspinal muscle tenderness;
EYE: pupils equal and reactive, EOMs intact.
ENT: o/p clr, mmm. no hemotympanum
CARDIAC: Regular rate and rhythm, no edema
LUNGS: Clear breath sounds bilaterally, no acute respiratory distress, no wheezes/rales/rhonchi
ABDOMEN: Soft, without focal tenderness, no r/g, no cvat
NEUROLOGICAL: Alert and oriented, no focal neuro deficits, CN intact, 5/5 strength, sensation intact
SKIN: Warm and dry,
MUSCULOSKELETAL: No edema, well perfused.
PSYCH: Normal and appropriate interaction.; developmental delay
Course
Orders/Labs/Results
Orders:
Orders
06/13/24 12:08
CT Head W/o Iv Contrast Urgent
Comment:
Reason For Exam: fall on Eliquis
Cervical Spine wo Contrast CT [CT Cervical Spine W/o Iv Contr] Urgent
Comment:
Reason For Exam: fall
Vital Signs
Initial and Last Documented VS:
Initial Vital Signs
Temp Pulse Resp BP Pulse Ox
36.3 C 64 16 103/62 98
06/13/24 12:03 06/13/24 12:03 06/13/24 12:03 06/13/24 12:03 06/13/24 12:03
Last Documented Vital Signs
Temp Pulse Resp BP Pulse Ox
36.8 C 72 18 123/75 100
06/13/24 15:52 06/13/24 15:52 06/13/24 15:52 06/13/24 15:52 06/13/24 15:52
MDM/Problems Addressed
Differential Diagnosis Includes:
contusion, concussion, SDH, ICH
MDM/Problems Addressed:
74 y/o M
dev delay, MR, vp emerging media shunt seizures, on eliquis for afib
mechanical fall backwards and hit head
recalls fall
no neck pain
small hematoma back of scalp
pt well appearing, answering questions, mild tremor hwichi is chronic otherwise exam benign
ct head/neck no trauma
d/c back to faciity
*Critical Care Note
Total Time (30-74mins, 75-104mins- exclusive of procedures): Not Applicable
ED Attending Note
-
Portions of this chart may have been created with voice recognition software.� Occasional wrong word or��sound alike� substitutions may have occurred due to the inherent limitations of voice recognition software.
Discharge Plan
Departure
Patient Disposition: Home (Routine Discharge)
Date of Disposition: 06/13/24
Time of Disposition: 15:24
Patient with high blood pressure during this ER visit?: No
Condition: Fair
Covid-19: Not Applicable
Discharge Problem:
Minor closed head injury
Instructions: Minor Head Injury (DC)
Prescriptions:
No Action
clonazepam 0.5 MG tablet
0.5 mg PO BID
docusate sodium 100 MG capsule
100 mg PO BID@0800,1600
phenobarbital 32.4 MG tablet
32.4 mg PO TID@0800,1200,1600
chlorhexidine gluconate 15 ML mouthwash
15 ml mucous membrane BID
calcium carbonate-vitamin D3 [Oyster Shell Calcium-Vit D3] 500 mg-5 mcg (200 unit) Tablet
1 tab PO BID@0800,1600
polyethylene glycol 3350 17 GRAMS powder in packet
17 grams PO DAILY
simvastatin 10 mg Tablet
10 mg PO QPM
tamsulosin 0.4 mg Capsule
0.4 mg PO BID
escitalopram oxalate 10 mg Tablet
10 mg PO DAILY
Rx Instructions:
take w/ 5 mg for total dose 15 mg
escitalopram oxalate 5 mg Tablet
5 mg PO DAILY
Rx Instructions:
take w/ 10 mg for total dose 15 mg
acetaminophen 325 mg Tablet
650 mg PO Q4HPRN PRN (Reason: mild pain/fever)
nystatin 100,000 unit/gram ointment
1 applic TOPICAL BIDPRN PRN (Reason: rash)
guaifenesin 100 mg/5 mL Liquid
100 - 200 mg PO Q4HPRN PRN (Reason: cough)
Citrucel 500 mg Tablet
1,000 mg PO BID@0800,1600
bethanechol chloride 25 mg tablet
25 mg PO BID
pantoprazole [Protonix] 40 mg tablet,delayed release (DR/EC)
40 mg PO DAILY Qty: 30 0RF
spironolactone 25 mg Tablet
12.5 mg PO DAILY Qty: 30 0RF
potassium chloride 10 mEq Tablet Extended Release
10 meq PO DAILY
ferrous sulfate 325 mg (65 mg iron) Tablet
325 mg PO DAILY
Stomach Relief 525 mg/15 mL Suspension
525 mg PO TIDPRN PRN (Reason: nausea/diarrhea)
Refresh Optive 0.5-0.9 % Drops
1 drp BOTH EYES DAILYPRN PRN (Reason: dry eyes)
metoprolol succinate 25 mg Tablet Extended Release 24 Hr
12.5 mg PO DAILY Qty: 30 0RF
Eliquis 5 mg tablet
5 mg PO BID Qty: 60 0RF
furosemide 40 mg Tablet
40 mg PO BID@0800,1600 Qty: 60 0RF
Referrals:
UNKNOWN - PT DOES,NOT KNOW [Family Provider] -
Activity Restrictions/Additional Instructions:
LYNDSAY'S HEAD AND NECK CT WERE NEGATIVE FOR TRAUMA
HE LIKELY HAS A MINOR HEAD INJURY
RETURN FO [facility].
Interventions
Interventions:
*Risk Screen - Suicide Last Done: 06/13/24 12:03
*General Assessment Last Done: 06/13/24 13:25
*Neglect/Abuse Screening Last Done: 06/13/24 12:03
ED- Fall Risk Assessment Last Done: 06/13/24 13:25
*ED COVID-19 Vaccine History Last Done: 06/13/24 13:25
ED- Neurological Assessment Last Done: 06/13/24 13:25
ED-Skin Assessment Last Done: 06/13/24 13:25
Discharge Date and Time
Print Language: ERITREAN
[2024-06-13 15:52] VITALS: BP 123/75
--- NOTE | 2024-06-13 16:00 | EDRN ---
Report given to ALIVIA Orellana at [facility].
== END 2024-06-13 19:35 ==
LOC: EMR 11:58
PROVIDERS: EMERGENCY PHYSICIAN Student in an Organized Health Care Education/Training Program
DX: S00.03XA Contusion of scalp, initial encounter (principal); W19.XXXA Unspecified fall, initial encounter; F84.5 Asperger's syndrome; F70 Mild intellectual disabilities; I48.0 Paroxysmal atrial fibrillation; G25.0 Essential tremor; Z79.01 Long term (current) use of anticoagulants; Z98.2 Presence of cerebrospinal fluid drainage device
CPT/HCPCS: 99284; 70450; 72125

== ENCOUNTER → 2024-06-24 13:48 | Outpatient (REF) | payer OTHER, SELFPAY | LOC: RCS 13:48 | PROVIDERS: ATTENDING PHYSICIAN Nurse Practitioner; FAMILY PHYSICIAN Nurse Practitioner | DX: I50.32 Chronic diastolic (congestive) heart failure (principal) | CPT/HCPCS: 93308 ==

== ENCOUNTER 2024-07-06 17:59 | Inpatient (IN) | payer OTHER, SELFPAY ==
[2024-07-06] VITALS (11 sets, daily range): BP systolic 90–120; BP diastolic 58–80
[2024-07-06 14:45] LABS: % Basophils 0.5 % (0-2); % Eosinophils 2.1 % (0-6); % Immature Granulocytes 0.5 % (0-0.5); % Lymphocytes 8.3 % (20.5-51.1); % Monocytes 10.6 % (1.7-9.3); Absolute Eosinophils 0.1 10^3/uL (0-0.7); Absolute Lymphocytes 0.4 10^3/uL (1.2-3.4); Absolute Monocytes 0.5 10^3/uL (0.1-0.6); Absolute Neutrophils 3.4 10^3/uL (1.4-6.5); Hematocrit 43.5 % (39.0-52.0); Hemoglobin 14.3 g/dL (13.0-18.0); Mean Corp Hgb Conc. 32.9 g/dL (33.0-37.0); Mean Corpuscular Hgb 31.9 pg (27.0-31.0); Mean Corpuscular Volume 97.1 fL (80.0-94.0); Nucleated Red Blood Cells % 0 % (-); Platelet Count 197 10^3/uL (130-400); Red Blood Cell Count 4.48 10^6/uL (4.70-6.10); Red Cell Dist. Width 14.4 % (11.5-14.5); White Blood Cell Count 4.3 10^3/uL (4.8-10.8)
[2024-07-06 15:17] LABS: ALT (SGPT) 33 U/L (0-50); AST (SGOT) 36 U/L (17-59); Albumin 3.4 g/dl (3.5-5.0); Alkaline Phosphatase 197 U/L (38-126); Blood Urea Nitrogen 27 mg/dl (9-20); Calcium 8.8 mg/dl (8.4-10.2); Carbon Dioxide 31 mmol/L (22-30); Chloride 100 mmol/L (98-107); Glucose 72 mg/dl (70-99); Magnesium 2.3 mg/dl (1.6-2.3); Potassium 4.3 mmol/L (3.5-5.1); Sodium 136 mmol/L (135-145); Total Bilirubin 0.9 mg/dl (0.2-1.3); Total Protein 5.7 g/dl (6.3-8.2); eGFR > 60.00
[2024-07-06 15:20] LABS: NT-proBNP 1330 pg/ml
--- NOTE | 2024-07-06 16:29 | ED.GENMED ---
History of Present Illness
General
Chief Complaint: Swelling
Source: records and physician
Time Seen by Provider: 07/06/24 13:58
History of Present Illness
History of Present Illness:
74-year-old male who presents from cardiology due to weight gain and concern for volume overload. Patient is unable to contribute to his own history is a history of Asperger syndrome with developmental delays. He also has a history of seizures
patient on arrival is not hypoxic. On my evaluation he is talking about characters on the TV show.
Past History
Past History
ED Past Medical History: CHF, Hypercholesterolemia, Seizures, Psychiatric (OCD) and Other (Diverticulosis, Asperger's developmental delays, Mild Mental retardation, Essential tremors, Hemorrhoids, pleural effusion, cirrhosis by imaging)
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 Hernia repair Ventril, Cataracts, )
Social History
Tobacco: Non-smoker
Alcohol: None
Drug: None
Personal: Single
Living: assisted living ([facility])
Employment: Not employed
Phy Exam
Physical Exam
Physical Exam:
CONSTITUTIONAL Patient alert and oriented to person. Well-appearing. Vital signs reviewed.
HEAD atraumatic, normocephalic.
EYES eyelids normal to inspection, Extraocular muscles intact, Conjunctiva normal, Sclera normal.
NECK normal range of motion, Trachea midline, no jugular venous distention.
RESPIRATORY CHEST No respiratory distress noted, Chest expansion equal, Bilateral breath sounds clear.
CARDIOVASCULAR regular rate and rhythm, Heart sounds normal.
ABDOMEN abdomen nontender, Bowel sounds normal. No distention.
UPPER EXTREMITY range of motion normal, Motor strength normal, no cyanosis, no edema.
LOWER EXTREMITY range of motion normal, Motor strength normal, no cyanosis, bilateral edema.
NEURO Speech normal, No focal motor deficits,, Cranial Nerves intact to screening exam. MRI features no
SKIN skin warm, dry, and normal in color.
Scores
Heart Failure Risk
Heart Failure Risk Score: Yes
History of Stroke or TIA: No
History of intubation for respiratory distress: No
Heart rate on ED arrival >/= 110: No
SaO2 <90% on arrival on room air: No
HR >/=110 during 3min walk test (or too ill to perform test): No
ECG has acute ischemic changes: No
Urea >/=12mmol/L (BUN 33.6mg/dL): No
Serum CO2>/=35mmol/L: No
Troponin I or T elevated to AK Level (0.4mg/dL): No
NT-proBNP >/=5,000ng/L (5,000pg/ml): No
HF Risk Score: 0
Admission Status: LOW RISK 2.8% Consider discharge to home with f/u visit to PCP/Automatic Edger
Course
Orders/Labs/Results
Orders:
Orders
07/06/24 14:10
CR Chest Portable - 1 View Urgent
Comment:
Reason For Exam: LE edema
Reason Study Needs to be Portable: Unable to Transport
07/06/24 14:33
Complete Blood Count/With Diff Urgent
Comprehensive Metabolic Panel Urgent
Magnesium Urgent
NT-proBNP Urgent
07/06/24 17:31
Admit/Transfer Patient As Directed
Co-Sign Provider:
Level of Care: Inpatient admission
Assign to:: Telemetry
Physician / Group: [email or web address]
Diagnosis: CHF exacerbation
Reason for Telemetry: Arrhythmia
Date to Stop Telemetry: 07/09/24
Time to Stop Telemetry: 11:00
Reason for Hospitalization: CHF exacerbation
Expected length of stay greater than two midnights?: Yes
ELOS- Estimated Length of Stay in days: 3
I certify the patient meets the requirements for IP care: Yes
PRN Pain Medication Management As Directed
May give lesser potent ordered pain med per pt: Yes
preference::
Protocol:: Medication orders for pain may be administered in a
manner that supports deferring to patient preference
when the pt is:
- Requesting an ordered lesser potent pain medication.
Least to most potent pain medications are defined
as: acetaminophen < NSAID < tramadol < opioids
(morphine, oxycodone, hydromorphone).
- Requesting a lesser dose of the same medication IF
ORDERED.
- Requesting a less intrusive route of administration
if both routes are prescribed by the provider (PO <
IV).
07/06/24 17:33
Code Status As Directed
Resuscitation Status: Full Code
07/06/24 17:52
EKG [Electrocardiogram (*1)] Stat
Reason for Study: Atrial Fibrillation
07/09/24 11:00
DC Protocol for Telemetry ONCE
Abnormal Lab Results
07/06/24
14:33
WBC 4.3 L 10^3/uL
(4.8-10.8)
RBC 4.48 L 10^6/uL
(4.70-6.10)
MCV 97.1 H fL
(80.0-94.0)
MCH 31.9 H pg
(27.0-31.0)
MCHC 32.9 L g/dL
(33.0-37.0)
MPV 11.0 H fL
(7.4-10.4)
Absolute Lymphs (auto) 0.4 L 10^3/uL
(1.2-3.4)
Neutrophils % 78.0 H %
(42.2-75.2)
Lymphocytes % 8.3 L %
(20.5-51.1)
Monocytes % 10.6 H %
(1.7-9.3)
Carbon Dioxide 31 H mmol/L
(22-30)
BUN 27 H mg/dl
(9-20)
Alkaline Phosphatase 197 H U/L
(38-126)
Total Protein 5.7 L g/dl
(6.3-8.2)
Albumin 3.4 L g/dl
(3.5-5.0)
07/06/24 14:33
07/06/24 14:33
Vital Signs
Initial and Last Documented VS:
Initial Vital Signs
Temp Pulse Resp BP Pulse Ox
97.4 F 67 18 102/65 97
07/06/24 11:50 07/06/24 11:50 07/06/24 11:50 07/06/24 11:50 07/06/24 11:50
Last Documented Vital Signs
Temp Pulse Resp BP Pulse Ox
97.4 F 69 21 118/58 97
07/06/24 11:50 07/06/24 18:30 07/06/24 18:30 07/06/24 18:00 07/06/24 11:50
MDM/Problems Addressed
MDM/Problems Addressed:
Volume overload, autism, relative hypotension
*Radiology
Radiology exam reviewed: preliminary read by ED provider (Right pleural effusion)
*Pulse Oximetry
Patient hypoxic: no
*EKG
Interpreted by ED Provider?: Yes
Interpretation: abnormal
Rate: normal
Rhythm: sinus
QRS Pattern: low voltage
Ischemia: non-specific ST changes
*Radio Frequency Engineer Interpretation
Rate: normal
Interpretation: normal
Rhythm: sinus
*Critical Care Note
Total Time (30-74mins, 75-104mins- exclusive of procedures): Not Applicable
Data Reviewed
Review of Other/Old Records Reveals: Labs (Prior labs reviewed)
Prescriptions/Medications Considered But Not Given:
Consider Lasix but blood pressure 9-100 systolic. Patient is stable to hold off for now
Patient Management
Discussion with other providers: Hospitalist and Steerer (Case discussed with cardiology Dr. Hardy)
Escalation/DeEscalation of care consider admission/obs:
Awake and alert, not hypoxic but discussed with cardiology. Based on his history and baseline, admit for possible thoracentesis versus diuresis.
ED Attending Note
-
Portions of this chart may have been created with voice recognition software.� Occasional wrong word or��sound alike� substitutions may have occurred due to the inherent limitations of voice recognition software.
Discharge Plan
Departure
Patient Disposition: Admit
Date of Disposition: 07/06/24
Time of Disposition: 16:30
Admit to: Telemetry
Presentation/result/management discussed w/ accepting MD/DO: Hospitalist
Discharge Problem:
Volume overload, Pleural effusion
Interventions
Interventions:
*Risk Screen - Suicide Last Done: 07/06/24 11:50
*General Assessment Last Done: 07/06/24 11:50
*Neglect/Abuse Screening Last Done: 07/06/24 11:50
ED- Cardiac Assessment Last Done: 07/06/24 11:59
ED- Pulmonary Assessment Last Done: 07/06/24 11:59
ED-Skin Assessment Last Done: 07/06/24 11:59
--- NOTE | 2024-07-06 17:12 | HPS.HSE ---
Family Physician
-
Family Physician: INTERVIEWE UNKNOWN - PT NOT
Chief Complaint
-
Weight gain
History of Present Illness
75-year-old with past medical history for pleural effusion, hypertension, hyperlipidemia, BPH, CHF, hyperlipidemia, CHF presented to us with 10 pounds weight gain in 2 weeks. Patient denied any chest pain or short of breath. Patient denied any
lower extremities edema. Patient denied any headache, dizzy or syncope. Patient denied any fever, chills. Patient denied any abdominal pain, nausea, vomiting or diarrhea. Patient denied dysuria hematuria
Chest x-ray with impression of mild CHF with small bilateral pleural effusions, right greater than left. Admitting for further management
Medical History
Past Medical History
Past Medical History: Reports Other
Additional Past Medical History:
pleural effusion
HTN
HLD
BPH
CHF
ENEDINA
seizure
scoliosis
hemorrhoids
mitral regurgitation
urinary retention
pericardial effusion
osteopenia
osteoporosis
Past Surgical History: Reports Other
Additional Past Surgical History:
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
TURP
cholecystectomy
thoracentesis
Social History
Tobacco: Non-smoker
Alcohol: None
Drug: None
Personal: Single
Living: Group Home
Family History
Family History: Not pertinent
Allergies / Home Medications
Allergies reflects when Allergies were last updated in [facility].
Home Medications with original date entered in [facility]
Allergy/Medication List:
Allergies
Allergy/AdvReac Type Severity Reaction Status Date / Time
No Known Allergies Allergy Verified 06/13/24 12:02
Home Medications
chlorhexidine gluconate 0.12 % mouthwash 15 ml mucous membrane BID DENTAL 02/24/19
clonazepam 0.5 mg tablet 0.5 mg PO BID Mental Health/Anxiety 02/24/19
docusate sodium 100 mg capsule 100 mg PO BID@0800,1600 Constipation 02/24/19
phenobarbital 32.4 mg tablet 32.4 mg PO TID@0800,1200,1600 Seizures 02/24/19
calcium 500 mg (as carbonate)-vitamin D3 5 mcg (200 unit) tablet (Oyster Shell Calcium-Vitamin D3) 1 tab PO BID@0800,1600 Supplement 12/07/21
polyethylene glycol 3350 17 gram oral powder packet 17 grams PO DAILY Constipation 12/07/21
escitalopram oxalate 10 mg tablet 10 mg PO DAILY Mental Health/Anxiety 02/13/22
escitalopram oxalate 5 mg tablet 5 mg PO DAILY Mental Health/Anxiety 02/13/22
simvastatin 10 mg tablet 10 mg PO QPM High cholesterol 02/13/22
tamsulosin 0.4 mg capsule 0.4 mg PO BID Urinary issue 02/13/22
acetaminophen 325 mg tablet 650 mg PO Q4HPRN PRN mild pain/fever 04/17/23
bethanechol chloride 25 mg tablet 25 mg PO BID Urinary Issue 04/17/23
guaifenesin 100 mg/5 mL oral liquid 100 - 200 mg PO Q4HPRN PRN cough 04/17/23
methylcellulose (laxative) 500 mg tablet (Citrucel) 1,000 mg PO BID@0800,1600 Constipation 04/17/23
nystatin 100,000 unit/gram topical ointment 1 applic topical BIDPRN PRN rash 04/17/23
pantoprazole 40 mg tablet,delayed release (Protonix) 40 mg PO DAILY GERD #30 tabs 04/21/23
spironolactone 25 mg tablet 12.5 mg (1/2 x 25 mg) PO DAILY #30 tabs 05/21/23
bismuth subsalicylate 525 mg/15 mL oral suspension (Stomach Relief) 525 mg PO TIDPRN PRN nausea/diarrhea 05/28/24
carboxymethylcellulose 0.5 %-glycerin 0.9 % eye drops (Refresh Optive) 1 drp BOTH EYES DAILYPRN PRN dry eyes 05/28/24
ferrous sulfate 325 mg (65 mg iron) tablet 325 mg PO DAILY 05/28/24
potassium chloride 10 mEq tablet,extended release 10 meq PO DAILY 05/28/24
apixaban 5 mg tablet (Eliquis) 5 mg PO BID #60 tabs 06/01/24
metoprolol succinate 25 mg tablet,extended release 24 hr 12.5 mg (1/2 x 25 mg) PO DAILY #30 tabs 06/01/24
furosemide 40 mg tablet 40 mg PO BID@0800,1600 #60 tabs 06/02/24
Review of Systems
-
Constitutional: Reports No Symptoms and Weight Gain
EENT: Reports No Symptoms
Respiratory: Reports No Symptoms
Cardiac: Reports No Symptoms
Abdomen/GI: Reports No Symptoms
: Reports No Symptoms
Musculoskeletal: Reports No Symptoms
Skin: Reports No Symptoms
Neurological: Reports No Symptoms
Endocrine: Reports No Symptoms
Hematologic/Lymphatic: Reports No Symptoms
Psych: Reports No Symptoms
Physical Exam
Vital Signs
Vital Signs
Temp Pulse Resp BP Pulse Ox
97.4 F 62 17 97/80 97
07/06/24 11:50 07/06/24 14:25 07/06/24 14:25 07/06/24 15:00 07/06/24 11:50
Physical Exam
General: Well Developed, Well Nourished and No Apparent Distress
HEENT: NormoCephalic, Moist mucous membranes and Atraumatic
Respiratory: Decreased Breath Sounds
Cardiac: S1/S2 and Regular Rhythm; No Murmur or Rub
GI: Soft, Non Tender, Non Distended and Normal Bowel Sounds; No Organomegaly
Rectal: Deferred by Provider
Musculoskeletal: No Clubbing, No Cyanosis and No Edema
Skin: No Rash
Neuro: AO x 3 and Nonfocal/grossly intact
Psych: Calm
Laboratory Results
-
07/06/24 14:33
07/06/24 14:33
Laboratory Results
Total Bilirubin 0.9 mg/dl (0.2-1.3) 07/06/24 14:33
AST 36 U/L (17-59) 07/06/24 14:33
ALT 33 U/L (0-50) 07/06/24 14:33
Alkaline Phosphatase 197 U/L (38-126) H 07/06/24 14:33
Data Reviewed
-
Diagnostic Radiology: Report Reviewed by me
Lab Data: Labs Reviewed by me
Impression/Plan
-
#CHF exacerbation
#pleural effusion
-chest x ray with Mild CHF with small bilateral pleural effusions, right greater than left.
-IV Lasix 40 continued
-Spironolactone on hold
-Strict DAVID
-Daily weight
-Fluid restriction
-Cardiology consult
-Recent echo 05/29 with impression of EF 55-60 percentage
# Paroxysmal atrial fibrillation
-Obtain EKG
-Eliquis continued
-Metoprolol continued
#Seizure Disorder
- APNS Phenobarbital
#Autism spectrum with developmental delay chronic
#GERD
- stable
- on PPI
#HLD
- cont zocor 10 mg daily
#Anxiety
- stable
- c/w Lexapro, clonazepam
# Iron deficiency anemia
Ferrous sulfate continued
#BPH/ S/P TURP
- c/w bethanechol and tamsulosin 0.4 mg twice daily
DVT PPx: Lovenox
Code: Full
--- NOTE | 2024-07-06 18:07 | W.PN.UPDATE ---
Update Note
Progress Note Update
This is an addendum to the H&P written by Aisha Salas on 07/06/2024. Patient seen and examined independently with PROPULSION GENERATOR REPAIRER
75-year-old male past medical history of HFpEF, moderate right pleural effusion status post thoracentesis, paroxysmal atrial fibrillation, cirrhosis, seizure disorder, autism developmental delay, GERD, hyperlipidemia, BPH status post transurethral
resection of prostate, presenting with 10 pound weight gain. No shortness of breath.
Blood pressure 90-100 systolic.
Cardiac BNP of 1300. Chest x-ray shows mild CHF with bilateral pleural effusions right greater than left.
Presentation consistent with acute CHF exacerbation with bilateral pleural effusions greater on the right.
Patient's blood pressure initially 90s to 100s however is improved to 118. Attempt diuresis with 40 IV Lasix twice daily. Cardiology consulted.
[2024-07-06] MEDS: LASIX 40 MG IV (18:16)
[2024-07-06] MEDS: URECHOLINE 25 MG PO (22:54)
[2024-07-06] MEDS: ELIQUIS 5 MG PO (22:55)
[2024-07-06] MEDS: LIPITOR 10 MG PO (22:55)
[2024-07-06] MEDS: KLONOPIN 0.5 MG PO (22:55)
[2024-07-07] VITALS (15 sets, daily range): BP systolic 80–133; BP diastolic 52–105; PULSE 65; O2SAT 96; BMI 29.7
[2024-07-07 06:54] LABS: TSH Reflex To Free T4 5.06 uIU/ml (0.47-4.68)
[2024-07-07 07:04] LABS: HDL Cholesterol 39 mg/dl; LDL Cholesterol, Calculated 68 mg/dl; Magnesium 2.2 mg/dl (1.6-2.3); Total Cholesterol 117 mg/dl (50-199); Triglyceride 52 mg/dl (10-149); Very Low Density Lipoprotein 10 mg/dl (0-30)
[2024-07-07 07:33] LABS: Free T4 1.39 ng/dl (0.78-2.19)
--- NOTE | 2024-07-07 08:52 | VNURNOTE ---
Chart reviewed. Patient is current with [facility] nursing, PT. Will continue to follow hospital course and DC plans.
[2024-07-07] MEDS: KCL 10 MEQ PO (08:56)
[2024-07-07] MEDS: FLOMAX 0.4 MG PO (08:56)
[2024-07-07] MEDS: COLACE 100 MG PO ×2 (08:56→15:44)
[2024-07-07] MEDS: TOPROL XL PO (08:57)
[2024-07-07] MEDS: PROTONIX 40 MG PO (08:57)
[2024-07-07] MEDS: LUMINAL 32.4 MG PO ×3 (08:57→15:45)
[2024-07-07] MEDS: URECHOLINE 25 MG PO ×2 (08:58→20:07)
[2024-07-07] MEDS: ELIQUIS 5 MG PO ×2 (08:58→20:07)
[2024-07-07] MEDS: KLONOPIN 0.5 MG PO ×2 (08:58→20:07)
[2024-07-07] MEDS: LASIX 40 MG IV ×2 (08:58→15:45)
[2024-07-07] MEDS: MIRALAX 17 GRAMS PO (08:58)
[2024-07-07] MEDS: LEXAPRO 15 MG PO (08:58)
[2024-07-07] MEDS: FEOSOL 325 MG PO (09:01)
--- NOTE | 2024-07-07 09:02 | CON.CAR ---
Addendum entered and electronically signed by Jerald Hardy MD 07/07/24 10:30:
I saw and examined the patient.
The YARN TWISTER or PA's note was reviewed and I agree with the note.
Comment: General: Well developed, well nourished in NAD.
Neck: Supple, no JVD, HJR, carotids +2 B/L, no bruits bilaterally.
Heart: Non displaced PMI, RRR, no murmurs, No S3, S4, no rubs.
Lungs: Scattered rhonchi
Extremities: Mild lower extremity edema bilaterally.
Neuro: Grossly nonfocal, awake, alert and oriented x3.
Dave has a history of Asperger syndrome/developmental delay, scoliosis, seizure disorder, OCD, pericardial effusion status post pericardiocentesis in May 2022, recurrent pleural effusion status post thoracenteses in April 2024 in May
2024, chronic diastolic CHF, chronic lower extremity edema, sleep apnea, tremor, hyperlipidemia. He presents due to a 10 pound weight gain and acute diastolic CHF. will treat with IV Lasix and assess response
Original Note:
Consultation
Consultation Request
Date/Time Consultation Performed: 07/07/24
Requesting Provider: Dr. Kelsey Barroso
Performing Provider: Sofia Agrawal PA-C for Dr. Hardy
Reason for Consultation: CHF
Medical History
-
Chief Complaint: weight gain
History of Present Illness:
He is a 74-year-old male with history of asperger syndrome/developmental delay who lives at [facility], scoliosis, seizure disorder, OCD, pericardial effusion status post pericardiocentesis 05/2022 for 365 mL, recurrent pleural
effusions s/p R thoracenteses 05/25/24 and 05/29/24, heart failure preserved EF, chronic lower extremity edema, obstructive sleep apnea, essential tremor, hyperlipidemia. He presented to due to 10 pound weight gain in the last 2 weeks. Denies CP,
SOB, LE edema, abd bloating, orthopnea, however per office correspondence staff at [facility] noted increased abd edema. Is on lasix 40mg BID as OP but with symptoms lasix was increased for several days to 80mg QAM and 40mg QPM. ProBNP 1330 and CXR
with evidence of small B/L pleural effusions. Cardiology consulted for assistance with volume mgmt.
���������
PMH:
Chronic HFpEF
Recurrent pleural effusions
status post R Thoracentesis 05/25/2024, 05/29/2023
s/p L thoracentesis 04/19/2023
h/o pericardial effusion
pericardiocentesis with 365 ml bloody effusion removed 06/11/22
pathology negative for malignant cells
Asperger syndrome/developmental delay
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
Hyperlipidemia
BPH status post TURP
Seizure history
Essential tremor
Recurrent UTI
Laparoscopic cholecystectomy with ventral hernia repair
Scoliosis
Past Medical History
Past Medical History: Other (As above in HPI)
Social History
Tobacco: Non-Smoker
Alcohol: None
Drug: None
Living: Other (usp)
Employment: Not Employed
Family History
Family History: Reviewed & Not Pertinent
Allergies / Home Medications
Allergy/AdvReac Type Severity Reaction Status Date / Time
No Known Allergies Allergy Verified 06/13/24 12:02
�Medication �Instructions �Recorded �Confirmed �Type
chlorhexidine gluconate 0.12 % 15 ml mucous membrane BID DENTAL 02/24/19 07/06/24 History
mouthwash
clonazepam 0.5 mg tablet 0.5 mg PO BID Mental Health/Anxiety 02/24/19 07/06/24 History
docusate sodium 100 mg capsule 100 mg PO BID@0800,1600 02/24/19 07/06/24 History
Constipation
phenobarbital 32.4 mg tablet 32.4 mg PO TID@0800,1200,1600 02/24/19 07/06/24 History
Seizures
calcium 500 mg (as 1 tab PO BID@0800,1600 Supplement 12/07/21 07/06/24 History
carbonate)-vitamin D3 5 mcg (200
unit) tablet (Oyster Shell
Calcium-Vitamin D3)
polyethylene glycol 3350 17 gram 17 grams PO DAILY Constipation 12/07/21 07/06/24 History
oral powder packet
escitalopram oxalate 10 mg tablet 10 mg PO DAILY Mental 02/13/22 07/06/24 History
Health/Anxiety
escitalopram oxalate 5 mg tablet 5 mg PO DAILY Mental Health/Anxiety 02/13/22 07/06/24 History
simvastatin 10 mg tablet 10 mg PO QPM High cholesterol 02/13/22 07/06/24 History
tamsulosin 0.4 mg capsule 0.4 mg PO DAILY Urinary issue 02/13/22 07/06/24 History
acetaminophen 325 mg tablet 650 mg PO Q4HPRN PRN mild 04/17/23 07/06/24 History
pain/fever
bethanechol chloride 25 mg tablet 25 mg PO BID Urinary Issue 04/17/23 07/06/24 History
guaifenesin 100 mg/5 mL oral liquid 100 - 200 mg PO Q4HPRN PRN cough 04/17/23 07/06/24 History
methylcellulose (laxative) 500 mg 1,000 mg PO BID@0800,1600 04/17/23 07/06/24 History
tablet (Citrucel) Constipation
nystatin 100,000 unit/gram topical 1 applic topical BIDPRN PRN rash 04/17/23 07/06/24 History
ointment
pantoprazole 40 mg tablet,delayed 40 mg PO DAILY GERD #30 tabs 04/21/23 07/06/24 Rx
release (Protonix)
spironolactone 25 mg tablet 12.5 mg (1/2 x 25 mg) PO DAILY #30 05/21/23 07/06/24 Rx
tabs
bismuth subsalicylate 525 mg/15 mL 525 mg PO TIDPRN PRN 05/28/24 07/06/24 History
oral suspension (Stomach Relief) nausea/diarrhea
carboxymethylcellulose 0.5 1 drp BOTH EYES DAILYPRN PRN dry 05/28/24 07/06/24 History
%-glycerin 0.9 % eye drops eyes
(Refresh Optive)
ferrous sulfate 325 mg (65 mg 325 mg PO DAILY 05/28/24 07/06/24 History
iron) tablet
potassium chloride 10 mEq 10 meq PO DAILY 05/28/24 07/06/24 History
tablet,extended release
apixaban 5 mg tablet (Eliquis) 5 mg PO BID #60 tabs 06/01/24 07/06/24 Rx
metoprolol succinate 25 mg 12.5 mg (1/2 x 25 mg) PO DAILY #30 06/01/24 07/06/24 Rx
tablet,extended release 24 hr tabs
furosemide 40 mg tablet 40 mg PO BID@0800,1600 #60 tabs 06/02/24 07/06/24 Rx
Review of Systems
-
History Source: Patient
All other systems: Negative unless noted
Physical Exam
Vital Signs
Temp Pulse Resp BP Pulse Ox
97.7 F 62 17 111/62 97
07/07/24 07:39 07/07/24 08:58 07/07/24 07:38 07/07/24 08:58 07/07/24 07:39
Lab Results
07/06/24 14:33
07/06/24 14:33
Tpu-C-Qnttcojwodi Pept 1330 pg/ml 07/06/24 14:33
Physical Exam
General: No Apparent Distress and Comfortable
HEENT: Normocephalic, Anicteric and Moist Mucous Membranes
Respiratory: Clear (anterolaterally) and Non Labored Respirations
Cardiac: S1/S2 and Regular Rhythm
GI: Soft, Non Tender, Non Distended and Normal Bowel Sounds
Musculoskeletal: No Clubbing, No Cyanosis and No Edema
Skin: Warm and Dry
Neuro: AO x 3
Impression / Plan
-
Primary Worship Pastor: Dr. Lisa
Assessment:
Presentation with weight gain
Concern for acute on chronic HFpEF
Recurrent pleural effusions
status post R Thoracentesis 05/25/2024, 05/29/2023
s/p L thoracentesis 04/19/2023
h/o pericardial effusion
pericardiocentesis with 365 ml bloody effusion removed 06/11/22
pathology negative for malignant cells Asperger syndrome/developmental delay
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
Hyperlipidemia
BPH status post TURP
Seizure history
Essential tremor
Recurrent UTI
Laparoscopic cholecystectomy with ventral hernia repair
Scoliosis
Echo 06/09/22: EF 50-55% with pulmonary artery pressure 30 to 35 mmHg, at least moderate pericardial effusion
Echo 06/11/22: Moderate pericardial effusion with resolution of pericardial effusion after the completion of the procedure.
Echo 07/2022: EF 50-55% with mild MR and TR and no pericardial or pleural effusions.
Echo 04/19/2023: EF 55-60%, mild to moderate MR, mildly dilated left atrium
Echo 04/03/2024: EF 55 to 60%, mild to moderate MR, mild to moderate TR, mobile echodensity in right atrium consistent with prominent Chiari network
ECHO 05/29/24: EF 55 to 60%, dilated bilateral atria, trivial pericardial effusion, pleural effusion present, no significant change compared to prior
ECHO 06/24/24: EF 55 to 60%, trivial pericardial effusion, pleural effusion present
Plan:
-Patient presents with weight gain of 10 pounds over the last 2 weeks. ProBNP 1330 and CXR with evidence of small B/L pleural effusions. Concern for acute on chronic HFpEF.
-continue IV lasix diuresis. Cr stable. as OP was taking po lasix 40mg BID (was increased to 80mg QAM and 40mg QPM last several days due to symptoms). dry weight felt to be ~142 pounds (today listed as 170 pounds, suspect inaccurate)
-CHF education as able
-recent echo with results as above, preserved EF, trivial pericardial effusion. could consider follow up study to reassess pericardial effusion
-in SR on review of tele. continue vasyl siegel
-will follow
Data Reviewed
-
EKG: Tracing Personally Visualized and interpreted
Radiology: Report Reviewed by me
Medical Tests (Nuc Med, Echo etc): Report Reviewed by me
Labs: Labs Reviewed by me
Old Records: Reviewed
--- NOTE | 2024-07-07 13:08 | W.PN.HOSP.TC ---
Today's Communication/Plan
-
Assessment / Plan
Assessment / Plan
NAD
Scleral Anicteric
MMM
No JVD
Rhonchorous
RRR, S1/S2
1+ pitting edema
Soft, NT, ND, BS+
Warm, Dry
Calm
Acute on chronic HFpEF continue IV diuretics GDMT cardiology keep K greater than 4 magnesium greater than 2 monitor urinary output Daily weight
P A-fib continue Eliquis and beta-jason
Seizure disorder continue phenobarbital
BPH/ S/P TURP
- c/w bethanechol and tamsulosin 0.4 mg twice daily
HLD
- cont zocor 10 mg daily
Anticipated Discharge: 24 - 48 hours
Subjective/Interval History
-
Date of Service: July 07, 2024
Seen and examined. No new complaints. No acute overnight events.
Objective Data
-
Vital Signs:
Vital Signs
Temp Pulse Resp BP Pulse Ox
97.7 F 74 22 94/68 97
07/07/24 07:39 07/07/24 13:00 07/07/24 13:00 07/07/24 12:59 07/07/24 07:39
[2024-07-07] MEDS: LIPITOR 10 MG PO (17:21)
[2024-07-08 00:35] VITALS: PULSE 88
[2024-07-08 04:00] VITALS: BP 115/78
[2024-07-08 07:02] VITALS: BMI 24.6
[2024-07-08 07:15] VITALS: BP 112/66
[2024-07-08] MEDS: COLACE 100 MG PO ×2 (07:50→15:38)
[2024-07-08] MEDS: KLONOPIN 0.5 MG PO (07:50)
[2024-07-08] MEDS: FEOSOL 325 MG PO (07:50)
[2024-07-08] MEDS: ELIQUIS 5 MG PO (07:50)
[2024-07-08] MEDS: MIRALAX 17 GRAMS PO (07:50)
[2024-07-08] MEDS: KCL 10 MEQ PO (07:50)
[2024-07-08] MEDS: LEXAPRO 15 MG PO (07:50)
[2024-07-08] MEDS: PROTONIX 40 MG PO (07:50)
[2024-07-08] MEDS: FLOMAX 0.4 MG PO (07:51)
[2024-07-08] MEDS: URECHOLINE 25 MG PO (07:51)
[2024-07-08] MEDS: LASIX 40 MG IV ×2 (07:51→15:39)
[2024-07-08] MEDS: LUMINAL 32.4 MG PO ×3 (07:51→16:47)
[2024-07-08] MEDS: TOPROL XL 12.5 MG PO (07:51)
[2024-07-08 09:30] LABS: Hematocrit 45.6 % (39.0-52.0); Hemoglobin 15.3 g/dL (13.0-18.0); Mean Corp Hgb Conc. 33.6 g/dL (33.0-37.0); Mean Corpuscular Hgb 32.1 pg (27.0-31.0); Mean Corpuscular Volume 95.6 fL (80.0-94.0); Mean Platelet Volume 10.8 fL (7.4-10.4); Platelet Count 209 10^3/uL (130-400); Red Blood Cell Count 4.77 10^6/uL (4.70-6.10); Red Cell Dist. Width 14.1 % (11.5-14.5); White Blood Cell Count 4.5 10^3/uL (4.8-10.8)
[2024-07-08 09:43] LABS: Blood Urea Nitrogen 25 mg/dl (9-20); Calcium 8.7 mg/dl (8.4-10.2); Carbon Dioxide 33 mmol/L (22-30); Chloride 98 mmol/L (98-107); Estimated Creatinine Clearance 61 ml/min; Glucose 58 mg/dl (70-99); Potassium 3.5 mmol/L (3.5-5.1); Sodium 137 mmol/L (135-145); eGFR > 60.00
[2024-07-08 11:28] VITALS: BP 97/67
[2024-07-08] MEDS: KCL 20 MEQ PO (11:36)
--- NOTE | 2024-07-08 11:44 | W.PN.HOSP.TC ---
Today's Communication/Plan
-
Transition IV to PO diuretics
More than 30 minutes spent in discharge including
Final examination of the patient
Summarizing hospital stay
Instructions for continuing care to all relevant caregivers
Preparation of discharge records, prescriptions, and referral forms
Total time spent (in minutes): 33mins
Assessment / Plan
Assessment / Plan
NAD
Scleral Anicteric
MMM
No JVD
Rhonchorous
RRR, S1/S2
1+ pitting edema
Soft, NT, ND, BS+
Warm, Dry
Calm
Acute on chronic HFpEF transition IV diuretics to p.o. diuretics GDMT cardiology keep K greater than 4 magnesium greater than 2 monitor urinary output Daily weight
P A-fib continue Eliquis and beta-jason
Seizure disorder continue phenobarbital
BPH/ S/P TURP
- c/w bethanechol and tamsulosin 0.4 mg twice daily
HLD
- cont zocor 10 mg daily
DC back to [facility]
Anticipated Discharge: Today
Subjective/Interval History
-
Date of Service: July 08, 2024
Seen and examined. No new complaints. No acute overnight events.
Objective Data
-
Labs:
Laboratory Results
07/08/24
08:53
WBC 4.5 L
Hgb 15.3
Hct 45.6
Plt Count 209
Sodium 137
Potassium 3.5
Chloride 98
Carbon Dioxide 33 H
BUN 25 H
Creatinine 0.9
Glucose 58 L
Calcium 8.7
Vital Signs:
Vital Signs
Temp Pulse Resp BP Pulse Ox
97.8 F 75 16 97/67 98
07/08/24 11:28 07/08/24 11:28 07/08/24 11:28 07/08/24 11:28 07/08/24 11:28
I&O
07/07/24 07/08/24 07/09/24
06:59 06:59 06:59
Intake Total 480 / 480
Balance 480 / 480
--- NOTE | 2024-07-08 11:46 | CM ---
CM reviewed medical records. Patient lives in a personal halfway: [facility]. As per [facility] note, patient is active with [facility] and they are following for needs. CM reviewed PT notes and recommendation is HH.
CM will continue to follow for further discharge needs.
PLAN: return to personal halfway at [facility].
--- NOTE | 2024-07-08 11:48 | W.PN.CARDCBS ---
Addendum entered and electronically signed by Jerald Hardy MD 07/08/24 12:19:
I saw and examined the patient.
The STORE CASHIER or PA's note was reviewed and I agree with the note.
Comment: General: Well developed, well nourished in NAD.
Neck: Supple, no JVD, HJR, carotids +2 B/L, no bruits bilaterally.
Heart: Non displaced PMI, RRR, no murmurs, No S3, S4, no rubs.
Lungs: Poor effort
Extremities: No clubbing, cyanosis or edema bilaterally.
Neuro: Grossly nonfocal, awake, alert and oriented x3.
He is a very difficult examination and historian. Appears close to dry weight. Will change to Lasix 40 mg p.o. twice daily. Stable cardiology status for discharge. Discussed with primary service.
Original Note:
Today's Communication / Plan
-
would transition back to po lasix 40mg BID for DC
replete K
BMP in 1 week
OP cardiac follow up arranged
Impression / Plan
-
Primary Conference Coordinator: Dr. Lisa
Assessment:
Presentation with weight gain
Concern for acute on chronic HFpEF
Recurrent pleural effusions
status post R Thoracentesis 05/25/2024, 05/29/2023
s/p L thoracentesis 04/19/2023
h/o pericardial effusion
pericardiocentesis with 365 ml bloody effusion removed 06/11/22
pathology negative for malignant cells Asperger syndrome/developmental delay
History of CONTENT ANALYST shunt
Hyperlipidemia
BPH status post TURP
Seizure history
Essential tremor
Recurrent UTI
Laparoscopic cholecystectomy with ventral hernia repair
Scoliosis
Echo 06/09/22: EF 50-55% with pulmonary artery pressure 30 to 35 mmHg, at least moderate pericardial effusion
Echo 06/11/22: Moderate pericardial effusion with resolution of pericardial effusion after the completion of the procedure.
Echo 07/2022: EF 50-55% with mild MR and TR and no pericardial or pleural effusions.
Echo 04/19/2023: EF 55-60%, mild to moderate MR, mildly dilated left atrium
Echo 04/03/2024: EF 55 to 60%, mild to moderate MR, mild to moderate TR, mobile echodensity in right atrium consistent with prominent Chiari network
ECHO 05/29/24: EF 55 to 60%, dilated bilateral atria, trivial pericardial effusion, pleural effusion present, no significant change compared to prior
ECHO 06/24/24: EF 55 to 60%, trivial pericardial effusion, pleural effusion present
Plan:
-Patient presents with weight gain of 10 pounds over the last 2 weeks. ProBNP 1330 and CXR with evidence of small B/L pleural effusions. Concern for acute on chronic HFpEF.
-if accurate weight down to 140 pounds this morning (which appears close to dry weight). patient denies SOB or complaints. will transition back to po lasix 40mg BID upon DC and follow daily weights at alf
-replete K
-he has history of recurrent UTI so not candidate for SGLT2 inhibitor
-remains in SR upon review of tele. continue vasyl siegel
-OP cardiac follow up arranged
-d/w nursing. d/w hospitalist via TT
Progress Note - Conference Coordinator
Subjective
Date of Service: July 08, 2024
no complaints
Objective
Labs:
07/08/24 08:53
07/08/24 08:53
Labs
Hgb 15.3 g/dL (13.0-18.0) 07/08/24 08:53
Hct 45.6 % (39.0-52.0) 07/08/24 08:53
Plt Count 209 10^3/uL (130-400) 07/08/24 08:53
Sodium 137 mmol/L (135-145) 07/08/24 08:53
Potassium 3.5 mmol/L (3.5-5.1) 07/08/24 08:53
BUN 25 mg/dl (9-20) H 07/08/24 08:53
Creatinine 0.9 mg/dL (0.7-1.3) 07/08/24 08:53
Glucose 58 mg/dl (70-99) L 07/08/24 08:53
Vital Signs and I&O:
Vital Signs
Temp Pulse Resp BP Pulse Ox
97.8 F 75 16 97/67 98
07/08/24 11:28 07/08/24 11:28 07/08/24 11:28 07/08/24 11:28 07/08/24 11:28
Vital Signs
Temp Pulse Resp BP Pulse Ox
97.8 F 75 16 97/67 98
07/08/24 11:28 07/08/24 11:28 07/08/24 11:28 07/08/24 11:28 07/08/24 11:28
Intake & Output
07/06/24 07/07/24 07/08/24 07/09/24
07:59 07:59 07:59 07:59
Intake Total 480 / 480
Balance 480 / 480
Physical Exam
Physical Exam
GEN: No distress, awake, alert, oriented to self
HEENT: supple, anicteric, mmm, eomi
LUNGS: CTA B/L, no wheezes/rales
CV: Reg, S1/S2, no murmur
ABD: soft, BS+, NT, mild distended on R
EXT: No cyanosis, clubbing, edema
NEURO: Gross non-focal
SKIN: Warm, pink, dry. No rash
--- NOTE | 2024-07-08 11:57 | W.DCSUMMARY ---
Discharge Summary
Discharge Data
Date of Admission: 07/06/24
Date of Discharge: 07/08/24
-
Pending Results: No
Hospital Course
75-year-old with past medical history for pleural effusion, hypertension, hyperlipidemia, BPH, CHF, hyperlipidemia, CHF
Presented from cardiology office after 10 pound gain in 2 weeks. Received IV diuretics with good urine output. Evaluated by cardiology and eventually recommended to transition over to p.o. diuretics 40 mg twice a day with outpatient cardiology
follow-up.
Discharge Plan
-
Patient Disposition: Assisted Living
Discharge Diagnosis/Procedures: Acute on CHronic HFpEF
Condition: Good
Diet: As tolerated, Low Fat, Low Cholesterol, 2 Gram Sodium, No added salt and Restrict fluids to 48 oz
Blood Work: BMP in 1 week
Specialty Instructions: Weigh Daily- Call MD for wt gain/loss 3 lbs overnight/5 lbs in 1 week
Activity Restrictions/Additional Instructions:
Presented from cardiology office after 10 pound gain in 2 weeks. Received IV diuretics with good urine output. Evaluated by cardiology and eventually recommended to transition over to p.o. diuretics 40 mg twice a day with outpatient cardiology
follow-up.
Instructions: *DCA Heart Failure Instructions
Referrals:
Melissa Gee CRNP [Specified Professional Personl] - 07/17/24 12:40 pm (You have a cardiology follow-up appointment at the [facility] with Dr. Lisa's nurse practitionerMelissa. Please call with questions)
UNKNOWN - PT NOT,INTERVIEWE [Family Provider] -
Prescriptions:
Continued
clonazepam 0.5 MG tablet
0.5 mg PO BID
docusate sodium 100 MG capsule
100 mg PO BID@0800,1600
phenobarbital 32.4 MG tablet
32.4 mg PO TID@0800,1200,1600
chlorhexidine gluconate 15 ML mouthwash
15 ml mucous membrane BID
calcium carbonate-vitamin D3 [Oyster Shell Calcium-Vit D3] 500 mg-5 mcg (200 unit) Tablet
1 tab PO BID@0800,1600
polyethylene glycol 3350 17 GRAMS powder in packet
17 grams PO DAILY
simvastatin 10 mg Tablet
10 mg PO QPM
tamsulosin 0.4 mg Capsule
0.4 mg PO DAILY
escitalopram oxalate 10 mg Tablet
10 mg PO DAILY
Rx Instructions:
take w/ 5 mg for total dose 15 mg
escitalopram oxalate 5 mg Tablet
5 mg PO DAILY
Rx Instructions:
take w/ 10 mg for total dose 15 mg
acetaminophen 325 mg Tablet
650 mg PO Q4HPRN PRN (Reason: mild pain/fever)
nystatin 100,000 unit/gram ointment
1 applic TOPICAL BIDPRN PRN (Reason: rash)
guaifenesin 100 mg/5 mL Liquid
100 - 200 mg PO Q4HPRN PRN (Reason: cough)
Citrucel 500 mg Tablet
1,000 mg PO BID@0800,1600
bethanechol chloride 25 mg tablet
25 mg PO BID
pantoprazole [Protonix] 40 mg tablet,delayed release (DR/EC)
40 mg PO DAILY Qty: 30 0RF
spironolactone 25 mg Tablet
12.5 mg PO DAILY Qty: 30 0RF
potassium chloride 10 mEq Tablet Extended Release
10 meq PO DAILY
ferrous sulfate 325 mg (65 mg iron) Tablet
325 mg PO DAILY
Stomach Relief 525 mg/15 mL Suspension
525 mg PO TIDPRN PRN (Reason: nausea/diarrhea)
Refresh Optive 0.5-0.9 % Drops
1 drp BOTH EYES DAILYPRN PRN (Reason: dry eyes)
metoprolol succinate 25 mg Tablet Extended Release 24 Hr
12.5 mg PO DAILY Qty: 30 0RF
Eliquis 5 mg tablet
5 mg PO BID Qty: 60 0RF
furosemide 40 mg Tablet
40 mg PO BID@0800,1600 Qty: 60 0RF
Discharge Orders:
Discharge Patient (As Directed); Ordered 07/08/24
Ordered By: Renato Barroso
Discharge Date and Time
Print Language: MONTSERRATIAN
[2024-07-08 13:41] VITALS: BMI 24.6
[2024-07-08 15:05] VITALS: BP 104/66
--- NOTE | 2024-07-08 16:29 | CM ---
Patient from [facility].
Spoke with Jeffrey, Traveling Representative [facility] ( [phone]); IMM reviewed, they can accept back today once their nurse speaks with Dr Barroso and nurse to nurse report occurs. must provide transport. for report [phone], fax
[phone]. She confirms patient is current with [facility] and they would like him to continue with KEISHA Thornton, Liaison with [facility] aware.
Spoke with nurse Blake; she spoke with Dr Barroso. Patient can return today after she speaks with our nurse.
Met with patient who agrees to return home today to [facility]. IMM reviewed- he says he is unable to sign.
Plan return to [facility] today by ambulance.
[2024-07-08] MEDS: LIPITOR 10 MG PO (17:46)
[2024-07-08 19:00] VITALS: BP 105/68
--- NOTE | 2024-07-08 19:43 | PTCARENOTE ---
Pt discharged at 1940 to [facility] with all belongings
--- NOTE | 2024-07-09 10:52 | W.HF.CON ---
Heart Failure
- LV Function
Left ventricular function study result: LV Ejection fraction >/= 50%
Ejection Fraction Percentage: 55-60
- ARNI
Patient already on ARNI: No
Heart Failure ARNI Not Indicated: LV Ejection Fraction >/= 40%
- ACEI/ARB
Patient already on ACEI/ARB: No
Heart Failure ACEI/ARB Not Indicated: LV Ejection Fraction > 40%
- Beta Awilda
Patient already on Evidence Based Beta Awilda: Yes
- Mineralocorticord Receptor Antagonist
Patient already on MRA: Yes
- SGLT-2 Inhibitor
Patient already on SGLT-2 Inhibitor: No
Heart Failure SGLT-2 Inhibitor Contraindication: Patient Refusal (recurrent UTI)
- Afib Anticoagulation
Patient already on Anticoagulation for Afib: Yes
- NYHA CHF Classification
NYHA CHF Classification Level: Class III - Symptoms w/ min exertion, interferes w/ nml daily activity
- ACC/AHA Stage
ACC/AHA Stage: Stage C: Symptomatic Heart Failure
== END 2024-07-08 19:44 | disposition home health service (06) | DRG 291 ==
LOC: 3 WEST ACU 17:59
PROVIDERS: Registered Nurse; ADMITTING PHYSICIAN Hospitalist; ATTENDING PHYSICIAN Hospitalist; CONSULT PHYSICIAN Internal Medicine Cardiovascular Disease; EMERGENCY PHYSICIAN Emergency Medicine
PROC: 5A09357 Assistance with Respiratory Ventilation, Less than 24 Consecutive Hours, Continuous Positive Airway Pressure (ICD-10-PCS; 2024-07-08)
DX: I11.0 Hypertensive heart disease with heart failure (principal); I50.33 Acute on chronic diastolic (congestive) heart failure; F84.5 Asperger's syndrome; R62.50 Unspecified lack of expected normal physiological development in childhood; G40.909 Epilepsy, unspecified, not intractable, without status epilepticus; E78.00 Pure hypercholesterolemia, unspecified; F70 Mild intellectual disabilities; G47.33 Obstructive sleep apnea (adult) (pediatric); M41.9 Scoliosis, unspecified; I34.0 Nonrheumatic mitral (valve) insufficiency; N40.1 Benign prostatic hyperplasia with lower urinary tract symptoms; R33.9 Retention of urine, unspecified; M81.0 Age-related osteoporosis without current pathological fracture; I48.0 Paroxysmal atrial fibrillation; K21.9 Gastro-esophageal reflux disease without esophagitis; F41.9 Anxiety disorder, unspecified; D50.9 Iron deficiency anemia, unspecified; K57.30 Diverticulosis of large intestine without perforation or abscess without bleeding; K64.9 Unspecified hemorrhoids; G25.0 Essential tremor; F42.9 Obsessive-compulsive disorder, unspecified; Z90.49 Acquired absence of other specified parts of digestive tract; Z98.2 Presence of cerebrospinal fluid drainage device; Z90.79 Acquired absence of other genital organ(s); Z79.01 Long term (current) use of anticoagulants; Z87.440 Personal history of urinary (tract) infections
CPT/HCPCS: 71045; 80048; 80053; 80061; 83735; 83880; 84439; 84443; 85025; 85027; 87070; 93005; 94660; 97163; 99285

== ENCOUNTER 2024-07-18 14:01 | Emergency (ER) | payer OTHER, SELFPAY ==
[2024-07-18] VITALS (7 sets, daily range): BP systolic 90–117; BP diastolic 62–84
[2024-07-18 14:31] LABS: % Basophils 0.4 % (0-2); % Eosinophils 1.2 % (0-6); % Immature Granulocytes 0.2 % (0-0.5); % Lymphocytes 7.2 % (20.5-51.1); % Monocytes 9.7 % (1.7-9.3); % Neutrophils 81.3 % (42.2-75.2); Absolute Eosinophils 0.1 10^3/uL (0-0.7); Absolute Lymphocytes 0.4 10^3/uL (1.2-3.4); Absolute Monocytes 0.5 10^3/uL (0.1-0.6); Absolute Neutrophils 3.9 10^3/uL (1.4-6.5); Hemoglobin 14.7 g/dL (13.0-18.0); Mean Corp Hgb Conc. 33.4 g/dL (33.0-37.0); Mean Corpuscular Hgb 31.7 pg (27.0-31.0); Nucleated Red Blood Cells % 0 % (-); Red Blood Cell Count 4.63 10^6/uL (4.70-6.10); Red Cell Dist. Width 14.1 % (11.5-14.5); White Blood Cell Count 4.8 10^3/uL (4.8-10.8)
[2024-07-18 14:42] LABS: ALT (SGPT) 28 U/L (0-50); AST (SGOT) 30 U/L (17-59); Albumin 3.2 g/dl (3.5-5.0); Alkaline Phosphatase 234 U/L (38-126); Blood Urea Nitrogen 29 mg/dl (9-20); Calcium 8.8 mg/dl (8.4-10.2); Carbon Dioxide 30 mmol/L (22-30); Chloride 102 mmol/L (98-107); Glucose 82 mg/dl (70-99); Potassium 4.1 mmol/L (3.5-5.1); Sodium 136 mmol/L (135-145); Total Bilirubin 0.5 mg/dl (0.2-1.3); Total Protein 5.6 g/dl (6.3-8.2); eGFR > 60.00
--- NOTE | 2024-07-18 17:42 | ED.GENMED ---
History of Present Illness
General
Chief Complaint: Blood Pressure Problem
Source: patient and ambulance crew
Exam Limitations: none
Time Seen by Provider: 07/18/24 17:07
Nursing documentation reviewed up to this point in time: agreed with
History of Present Illness
History of Present Illness:
74-year-old male presents emergency department as facility noted he was having trouble staying awake and had increased confusion and labile blood pressure. He is awake alert, and wants to talk about the Jeeps that he saw in the parking lot.
Past History
Past History
ED Past Medical History: CHF, Hypercholesterolemia, Seizures, Psychiatric (OCD) and Other (Diverticulosis, Asperger's developmental delays, Mild Mental retardation, Essential tremors, Hemorrhoids, pleural effusion, cirrhosis by imaging)
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 Hernia repair Ventril, Cataracts, )
Social History
Tobacco: Non-smoker
Alcohol: None
Drug: None
Personal: Single
Living: assisted living ([facility])
Employment: Not employed
Review of Systems
Review of Systems
Allergies reviewed?: Yes
All Other Systems: Not applicable
Constitutional: Reports no symptoms
EENT: Reports no symptoms
Respiratory: Reports no symptoms
Cardiac: Reports no symptoms
ABD/GI: Reports no symptoms
: Reports no symptoms
Musculoskeletal: Reports no symptoms
Skin: Reports no symptoms
Neurological: Reports no symptoms
Endocrine: Reports no symptoms
Hematologic/Lymphatic: Reports no symptoms
Psychiatric: Reports no symptoms
Phy Exam
Physical Exam
Physical Exam:
Physical Exam
General: no apparent distress, not acutely ill
Neck: supple. no meningeal signs. normal posterior pharynx
Heart: s1/s2 regular rate and rhythm, no murmur. equal radial
pulses.
HEENT: Pupils equal round reactive to light, EOMI
Lungs: no acute respiratory distress. clear bilaterally
Abdomen: normal bowel sounds. not tender. no CVAT
Neuro: alert and oriented. no focal neurological deficits cranial nerves II through XII intact
Skin: no rash
Psychiatric: well kept. interactive and cooperative
Extremities: no edema. no calf tenderness. negative homans. good distal pulses
Course
Orders/Labs/Results
Orders:
Orders
07/18/24 14:17
CBC/With Diff [Complete Blood Count/With Diff] Urgent
Comprehensive Metabolic Panel Urgent
07/18/24 17:41
IV Insert/Care/Rem.- Treatment PRN
0.9% Sodium Chloride 500 ml [Nss] 500 ml IV BOLUS
07/18/24 17:42
CT Head W/o Iv Contrast Urgent
Comment:
Reason For Exam: confusion, altered mental status
Abnormal Lab Results
07/18/24
14:17
RBC 4.63 L 10^6/uL
(4.70-6.10)
MCV 95.0 H fL
(80.0-94.0)
MCH 31.7 H pg
(27.0-31.0)
Absolute Lymphs (auto) 0.4 L 10^3/uL
(1.2-3.4)
Neutrophils % 81.3 H %
(42.2-75.2)
Lymphocytes % 7.2 L %
(20.5-51.1)
Monocytes % 9.7 H %
(1.7-9.3)
BUN 29 H mg/dl
(9-20)
Alkaline Phosphatase 234 H U/L
(38-126)
Total Protein 5.6 L g/dl
(6.3-8.2)
Albumin 3.2 L g/dl
(3.5-5.0)
07/18/24 14:17
07/18/24 14:17
Vital Signs
Initial and Last Documented VS:
Initial Vital Signs
Temp Pulse Resp BP Pulse Ox
97.8 F 63 16 104/67 96
07/18/24 14:04 07/18/24 14:04 07/18/24 14:04 07/18/24 14:04 07/18/24 14:04
Last Documented Vital Signs
Temp Pulse Resp BP Pulse Ox
97.8 F 66 16 112/82 100
07/18/24 14:04 07/18/24 21:30 07/18/24 21:30 07/18/24 21:25 07/18/24 21:30
MDM/Problems Addressed
Differential Diagnosis Includes:
Dehydration, CVA
MDM/Problems Addressed:
74-year-old male with mild hypovolemia, no altered mental status or lesion found. He has a baseline. Stable for discharge.
Chronic conditions affecting care: Neurological disorder (Ventricular shunt)
*Radiology
Radiology exam reviewed: radiology read reviewed (CT head no acute findings)
*Pulse Oximetry
Patient hypoxic: no
*Matrix Inspector Interpretation
Rate: normal
Interpretation: normal
Heart Rate: 68
Rhythm: sinus
*Critical Care Note
Total Time (30-74mins, 75-104mins- exclusive of procedures): Not Applicable
Patient Management
Social determinants of health affecting care: Living situation and Strong social support
Escalation/DeEscalation of care consider admission/obs:
Admit not indicated
ED Attending Note
-
Portions of this chart may have been created with voice recognition software.� Occasional wrong word or��sound alike� substitutions may have occurred due to the inherent limitations of voice recognition software.
Discharge Plan
Departure
Patient Disposition: Snf/SNF
Date of Disposition: 07/18/24
Time of Disposition: 23:07
Patient with high blood pressure during this ER visit?: No
Condition: Good
Discharge Problem:
Hypovolemia
Instructions: Hypovolemia in adults
Prescriptions:
No Action
clonazepam 0.5 MG tablet
0.5 mg PO BID
docusate sodium 100 MG capsule
100 mg PO BID@0800,1600
phenobarbital 32.4 MG tablet
32.4 mg PO TID@0800,1200,1600
chlorhexidine gluconate 15 ML mouthwash
15 ml mucous membrane BID
calcium carbonate-vitamin D3 [Oyster Shell Calcium-Vit D3] 500 mg-5 mcg (200 unit) Tablet
1 tab PO BID@0800,1600
polyethylene glycol 3350 17 GRAMS powder in packet
17 grams PO DAILY
simvastatin 10 mg Tablet
10 mg PO QPM
tamsulosin 0.4 mg Capsule
0.4 mg PO DAILY
escitalopram oxalate 10 mg Tablet
10 mg PO DAILY
Rx Instructions:
take w/ 5 mg for total dose 15 mg
escitalopram oxalate 5 mg Tablet
5 mg PO DAILY
Rx Instructions:
take w/ 10 mg for total dose 15 mg
acetaminophen 325 mg Tablet
650 mg PO Q4HPRN PRN (Reason: mild pain/fever)
nystatin 100,000 unit/gram ointment
1 applic TOPICAL BIDPRN PRN (Reason: rash)
guaifenesin 100 mg/5 mL Liquid
100 - 200 mg PO Q4HPRN PRN (Reason: cough)
Citrucel 500 mg Tablet
1,000 mg PO BID@0800,1600
bethanechol chloride 25 mg tablet
25 mg PO BID
pantoprazole [Protonix] 40 mg tablet,delayed release (DR/EC)
40 mg PO DAILY Qty: 30 0RF
spironolactone 25 mg Tablet
12.5 mg PO DAILY Qty: 30 0RF
potassium chloride 10 mEq Tablet Extended Release
10 meq PO DAILY
ferrous sulfate 325 mg (65 mg iron) Tablet
325 mg PO DAILY
Stomach Relief 525 mg/15 mL Suspension
525 mg PO TIDPRN PRN (Reason: nausea/diarrhea)
Refresh Optive 0.5-0.9 % Drops
1 drp BOTH EYES DAILYPRN PRN (Reason: dry eyes)
metoprolol succinate 25 mg Tablet Extended Release 24 Hr
12.5 mg PO DAILY Qty: 30 0RF
Eliquis 5 mg tablet
5 mg PO BID Qty: 60 0RF
furosemide 40 mg Tablet
40 mg PO BID@0800,1600 Qty: 60 0RF
Referrals:
UNKNOWN - PT NOT,INTERVIEWE [Family Provider] -
Interventions
Interventions:
*Risk Screen - Suicide Last Done: 07/18/24 14:04
*Neglect/Abuse Screening Last Done: 07/18/24 14:04
ED- Cardiac Assessment Last Done: 07/18/24 19:06
ED- Neurological Assessment Last Done: 07/18/24 19:06
ED- Pulmonary Assessment Last Done: 07/18/24 19:06
Discharge Date and Time
Print Language: CZECH
[2024-07-18] MEDS: NSS 500 IV (19:05)
[2024-07-19] VITALS: BP 113/66
== END 2024-07-19 02:24 ==
LOC: EMR 14:01
PROVIDERS: Emergency Medicine; EMERGENCY PHYSICIAN Emergency Medicine
DX: E86.1 Hypovolemia (principal); I50.9 Heart failure, unspecified; E78.00 Pure hypercholesterolemia, unspecified; F84.5 Asperger's syndrome; Z90.49 Acquired absence of other specified parts of digestive tract; Z90.79 Acquired absence of other genital organ(s); Z98.2 Presence of cerebrospinal fluid drainage device
CPT/HCPCS: 99284; 70450; 80053; 85025

== ENCOUNTER → 2024-07-24 12:45 | Outpatient (REF) | payer OTHER, SELFPAY | LOC: HWRAD 12:45 | PROVIDERS: ATTENDING PHYSICIAN Internal Medicine Gastroenterology; FAMILY PHYSICIAN Nurse Practitioner | DX: R93.5 Abnormal findings on diagnostic imaging of other abdominal regions, including retroperitoneum (principal) | CPT/HCPCS: 76700 ==

== ENCOUNTER → 2024-08-06 15:49 | Outpatient (REF) | payer OTHER, SELFPAY | LOC: RAD 15:49 | PROVIDERS: ATTENDING PHYSICIAN Nuclear Medicine Nuclear Cardiology; FAMILY PHYSICIAN Nurse Practitioner | DX: I50.32 Chronic diastolic (congestive) heart failure (principal) | CPT/HCPCS: 71046 ==

== ENCOUNTER 2024-08-10 08:20 | Inpatient (IN) | payer OTHER, SELFPAY ==
[2024-08-06 16:33] VITALS: BMI 22.5
[2024-08-06 16:50] VITALS: BP 107/63
--- NOTE | 2024-08-06 21:18 | ED.GENMED ---
History of Present Illness
General
Chief Complaint: Breathing Problem
Time Seen by Provider: 08/06/24 21:09
History of Present Illness
History of Present Illness:
Patient is a 74-year-old male with past medical history of Asperger's/mild MR/developmental delay, history of seizure disorder, hyperlipidemia, diverticulosis, cataracts, OCD, and impulsive control disorder, here today for evaluation after he
underwent a chest x-ray earlier today which showed concern for pneumonia. Patient has been having increasing shortness of breath more recently associated with cough/congestion. No fevers noted. Per documentation the patient saw his outside repairer special
today and a chest x-ray was obtained which revealed large bilateral lower lobe airspace consolidations concerning for pneumonia with pleural effusions. Patient was ultimately directed to the emergency department secondary to the symptoms.
Past History
Past History
ED Past Medical History: CHF, Hypercholesterolemia, Seizures, Psychiatric (OCD) and Other (Diverticulosis, Asperger's developmental delays, Mild Mental retardation, Essential tremors, Hemorrhoids, pleural effusion, cirrhosis by imaging)
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 Hernia repair Ventril, Cataracts, )
Social History
Tobacco: Non-smoker
Alcohol: None
Drug: None
Personal: Single
Living: assisted living ([facility])
Employment: Not employed
Review of Systems
Review of Systems
All Other Systems: ROS reviewed and negative except as documented in HPI and ROS
Phy Exam
Physical Exam
Physical Exam:
GENERAL: Alert , in no apparent distress
NECK: Supple
ENT: o/p clr, mmm.
CARDIAC: Regular rate and rhythm .
LUNGS: Clear breath sounds bilaterally, no acute respiratory distress, no wheezes/rales/rhonchi
ABDOMEN: Soft, without focal tenderness, no r/g
NEUROLOGICAL: Alert and oriented, no focal neuro deficits
SKIN: Warm and dry, skin intact.
MUSCULOSKELETAL: No edema, well perfused.
PSYCH: Normal and appropriate interaction.
Scores
Heart Failure Risk
Heart Failure Risk Score: Not Applicable
Course
Orders/Labs/Results
Orders:
Orders
08/06/24 21:26
Electrocardiogram (*1) Urgent
Reason for Study: QTc Monitoring
EKG- Treatment ONCE
08/06/24 21:48
Azithromycin 500 mg/250 ml [Zithromax Infusion] 500 mg in 250 ml IV NOW
CefTRIAXone [Rocephin] 1,000 mg IV NOW STA
08/06/24 22:07
CMP [Comprehensive Metabolic Panel] Urgent
Complete Blood Count/With Diff Urgent
08/06/24 22:11
BNP [NT-proBNP] Stat
Abnormal Lab Results
08/06/24
22:07
MCH 31.6 H pg
(27.0-31.0)
MPV 10.6 H fL
(7.4-10.4)
Absolute Lymphs (auto) 0.5 L 10^3/uL
(1.2-3.4)
Neutrophils % 77.4 H %
(42.2-75.2)
Lymphocytes % 8.7 L %
(20.5-51.1)
Monocytes % 11.2 H %
(1.7-9.3)
BUN 27 H mg/dl
(9-20)
Alkaline Phosphatase 243 H U/L
(38-126)
08/06/24 22:07
08/06/24 22:07
Vital Signs
Initial and Last Documented VS:
Initial Vital Signs
Temp Pulse Resp BP Pulse Ox
97.6 F 61 18 107/63 100
08/06/24 16:50 08/06/24 16:50 08/06/24 16:50 08/06/24 16:50 08/06/24 16:50
Last Documented Vital Signs
Temp Pulse Resp BP Pulse Ox
97.6 F 61 18 121/85 100
08/06/24 16:50 08/06/24 16:50 08/06/24 16:50 08/06/24 21:37 08/06/24 16:50
MDM/Problems Addressed
Differential Diagnosis Includes:
Patient is a 74-year-old male with past medical history of asked Buerger's/mild MR/developmental delay, history of seizure disorder, hyperlipidemia, diverticulosis, cataracts, OCD, and impulsive control disorder, here today for evaluation after he
underwent a chest x-ray earlier today which showed concern for pneumonia. Overall, patient appears well. Vitals within normal limits. Physical examination described above. Given age, medical conditions, and the fact that there is evidence of
multifocal pneumonia we will plan for admission with IV antibiotics. An EKG was obtained which reveals evidence of a normal QTc. Will provide ceftriaxone and azithromycin. All questions answered.
*Critical Care Note
Total Time (30-74mins, 75-104mins- exclusive of procedures): Not Applicable
ED Attending Note
-
Portions of this chart may have been created with voice recognition software.� Occasional wrong word or��sound alike� substitutions may have occurred due to the inherent limitations of voice recognition software.
Discharge Plan
Departure
Patient Disposition: Admit
Date of Disposition: 08/06/24
Time of Disposition: 22:38
Admit to: Med/Surg
Admit to doctor: Duane Douglas
Presentation/result/management discussed w/ accepting MD/DO: Hospitalist
Patient with high blood pressure during this ER visit?: No
Condition: Fair
Discharge Problem:
Pneumonia
Prescriptions:
No Action
clonazepam 0.5 MG tablet
0.5 mg PO BID
docusate sodium 100 MG capsule
100 mg PO BID@0800,1600
phenobarbital 32.4 MG tablet
32.4 mg PO TID@0800,1200,1600
chlorhexidine gluconate 15 ML mouthwash
15 ml mucous membrane BID
calcium carbonate-vitamin D3 [Oyster Shell Calcium-Vit D3] 500 mg-5 mcg (200 unit) Tablet
1 tab PO BID@0800,1600
polyethylene glycol 3350 17 GRAMS powder in packet
17 grams PO DAILY
simvastatin 10 mg Tablet
10 mg PO QPM
tamsulosin 0.4 mg Capsule
0.4 mg PO DAILY
escitalopram oxalate 10 mg Tablet
10 mg PO DAILY
Rx Instructions:
take w/ 5 mg for total dose 15 mg
escitalopram oxalate 5 mg Tablet
5 mg PO DAILY
Rx Instructions:
take w/ 10 mg for total dose 15 mg
acetaminophen 325 mg Tablet
650 mg PO Q4HPRN PRN (Reason: mild pain/fever)
nystatin 100,000 unit/gram ointment
1 applic TOPICAL BIDPRN PRN (Reason: rash)
guaifenesin 100 mg/5 mL Liquid
100 - 200 mg PO Q4HPRN PRN (Reason: cough)
Citrucel 500 mg Tablet
1,000 mg PO BID@0800,1600
bethanechol chloride 25 mg tablet
25 mg PO BID
pantoprazole [Protonix] 40 mg tablet,delayed release (DR/EC)
40 mg PO DAILY Qty: 30 0RF
spironolactone 25 mg Tablet
12.5 mg PO DAILY Qty: 30 0RF
potassium chloride 10 mEq Tablet Extended Release
10 meq PO DAILY
ferrous sulfate 325 mg (65 mg iron) Tablet
325 mg PO DAILY
Stomach Relief 525 mg/15 mL Suspension
525 mg PO TIDPRN PRN (Reason: nausea/diarrhea)
Refresh Optive 0.5-0.9 % Drops
1 drp BOTH EYES DAILYPRN PRN (Reason: dry eyes)
metoprolol succinate 25 mg Tablet Extended Release 24 Hr
12.5 mg PO DAILY Qty: 30 0RF
Eliquis 5 mg tablet
5 mg PO BID Qty: 60 0RF
furosemide 40 mg Tablet
40 mg PO BID@0800,1600 Qty: 60 0RF
Interventions
Interventions:
*Risk Screen - Suicide Last Done: 08/06/24 16:50
*General Assessment Last Done: 08/06/24 16:50
Discharge Date and Time
Print Language: INDONESIAN
[2024-08-06 21:37] VITALS: BP 121/85
--- NOTE | 2024-08-06 21:55 | HPS.HSE ---
Family Physician
-
Family Physician:
Chief Complaint
-
abnormal chest x-ray
History of Present Illness
Patient is a 74-year-old male with past medical history significant for HFpEF, hyperlipidemia, BPH, seizure, essential tremor, recurrent pleural effusions, and hx pericardial effusion who presented to [facility] ED for evaluation of
potential pneumonia. Patient had out patient chest x-ray earlier in day that indicated possible pneumonia. Patient denies any symptoms to this provider. ED documentation indicates that it was reported that patient has been having increased shortness
of breath recently associated with cough/congestion. Patient denies any fever, chills, chest pain, nausea, vomiting, constipation, diarrhea or urinary symptoms.
Medical History
Past Medical History
Past Medical History: Reports Other
Additional Past Medical History:
HFpEF
hyperlipidemia
BPH
seizure
essential tremor
recurrent pleural effusions
hx pericardial effusion
autism/developmental delay
Past Surgical History: Reports Other
Additional Past Surgical History:
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
TURP
cholecystectomy
thoracentesis
Social History
Tobacco: Non-smoker
Alcohol: None
Drug: None
Personal: Single
Living: Half-Way
Family History
Family History: Not pertinent
Allergies / Home Medications
Allergies reflects when Allergies were last updated in [facility].
Home Medications with original date entered in [facility]
Allergy/Medication List:
Allergies
Allergy/AdvReac Type Severity Reaction Status Date / Time
No Known Allergies Allergy Verified 08/06/24 16:55
Home Medications
chlorhexidine gluconate 0.12 % mouthwash 15 ml mucous membrane BID DENTAL 02/24/19
clonazepam 0.5 mg tablet 0.5 mg PO BID Mental Health/Anxiety 02/24/19
docusate sodium 100 mg capsule 100 mg PO BID@0800,1600 Constipation 02/24/19
phenobarbital 32.4 mg tablet 32.4 mg PO TID@0800,1200,1600 Seizures 02/24/19
calcium 500 mg (as carbonate)-vitamin D3 5 mcg (200 unit) tablet (Oyster Shell Calcium-Vitamin D3) 1 tab PO BID@0800,1600 Supplement 12/07/21
polyethylene glycol 3350 17 gram oral powder packet 17 grams PO DAILY Constipation 12/07/21
escitalopram oxalate 10 mg tablet 10 mg PO DAILY Mental Health/Anxiety 02/13/22
escitalopram oxalate 5 mg tablet 5 mg PO DAILY Mental Health/Anxiety 02/13/22
simvastatin 10 mg tablet 10 mg PO QPM High cholesterol 02/13/22
tamsulosin 0.4 mg capsule 0.4 mg PO DAILY Urinary issue 02/13/22
acetaminophen 325 mg tablet 650 mg PO Q4HPRN PRN mild pain/fever 04/17/23
bethanechol chloride 25 mg tablet 25 mg PO BID Urinary Issue 04/17/23
guaifenesin 100 mg/5 mL oral liquid 100 - 200 mg PO Q4HPRN PRN cough 04/17/23
methylcellulose (laxative) 500 mg tablet (Citrucel) 1,000 mg PO BID@0800,1600 Constipation 04/17/23
nystatin 100,000 unit/gram topical ointment 1 applic topical BIDPRN PRN rash 04/17/23
pantoprazole 40 mg tablet,delayed release (Protonix) 40 mg PO DAILY GERD #30 tabs 04/21/23
spironolactone 25 mg tablet 12.5 mg (1/2 x 25 mg) PO DAILY #30 tabs 05/21/23
bismuth subsalicylate 525 mg/15 mL oral suspension (Stomach Relief) 525 mg PO TIDPRN PRN nausea/diarrhea 05/28/24
carboxymethylcellulose 0.5 %-glycerin 0.9 % eye drops (Refresh Optive) 1 drp BOTH EYES DAILYPRN PRN dry eyes 05/28/24
ferrous sulfate 325 mg (65 mg iron) tablet 325 mg PO DAILY 05/28/24
potassium chloride 10 mEq tablet,extended release 10 meq PO DAILY 05/28/24
apixaban 5 mg tablet (Eliquis) 5 mg PO BID #60 tabs 06/01/24
metoprolol succinate 25 mg tablet,extended release 24 hr 12.5 mg (1/2 x 25 mg) PO DAILY #30 tabs 06/01/24
furosemide 40 mg tablet 40 mg PO BID@0800,1600 #60 tabs 06/02/24
Review of Systems
-
Unable to obtain full review of systems at this time due to: Dementia
Physical Exam
Vital Signs
Vital Signs
Temp Pulse Resp BP Pulse Ox
97.6 F 61 18 107/63 100
08/06/24 16:50 08/06/24 16:50 08/06/24 16:50 08/06/24 16:50 08/06/24 16:50
Physical Exam
General: Well Developed, Well Nourished, No Apparent Distress, Comfortable, Conversant and Appears Chronically Ill
HEENT: NormoCephalic, Moist mucous membranes, Atraumatic, Calio Conjunctivae, Nose Appears Normal and Ears Appear Normal
Respiratory: Clear, Non Labored Respirations and Decreased Breath Sounds (in bilateral lower lobes )
Cardiac: S1/S2 and Regular Rhythm; No Murmur, Rub or Gallop
Breast: Deferred by me
GI: Soft, Non Tender, Non Distended and Normal Bowel Sounds; No Organomegaly
Rectal: Deferred by Provider
Genito-urinary: Deferred by me
Musculoskeletal: No Clubbing, No Cyanosis and No Edema
Skin: No Rash
Neuro: Awake and Alert
Psych: Calm
Data Reviewed
-
Diagnostic Radiology: Report Reviewed by me (CXR: 1. LARGE BILATERAL LOWER LOBE AIRSPACE CONSOLIDATIONS (right larger than left). Diagnostic possibilities are (1) compressive atelectasis or (2) bilateral lower lobe pneumonia (if there are
signs/symptoms of pulmonary infection). 2. MODERATE-SIZED RIGHT and SMALL LEFT PLEURAL EFFUSIONS whic)
Lab Data: Labs Reviewed by me
Impression/Plan
-
IMPRESSION/PLAN:
#pneumonia
WBC 5.6
CXR: 1. LARGE BILATERAL LOWER LOBE AIRSPACE CONSOLIDATIONS (right larger than left). Diagnostic possibilities are (1) compressive atelectasis or (2) bilateral lower lobe pneumonia (if there are signs/symptoms of
pulmonary infection).
2. MODERATE-SIZED RIGHT and SMALL LEFT PLEURAL EFFUSIONS which appear similar to 07/06/2024, but markedly increased in size since 05/29/2024.
3. Severe right convex curvature of the mid to lower thoracic spine.
- admit to med/surg
- Procal pending
- IV antibiotics
- sputum culture
- supportive care
#HFpEF
ECHO (06/24/24): EF 55 to 60%, trivial pericardial effusion, pleural effusion present
- daily weights
- I&Os
- continue spironolactone and potassium chloride
- hold PO furosemide
- IV furosemide
- consult cards
#paroxysmal atrial fibrillation
EKG: NORMAL SINUS RHYTHM
LOW VOLTAGE QRS
NONSPECIFIC T WAVE ABNORMALITY
- continue Eliquis and metoprolol
#hyperlipidemia
- continue simvastatin
#BPH
s/p TURP
- continue bethanechol chloride and tamsulosin
#seizure
- continue phenobarbital
#depression/anxiety
- continue escitalopram
#GERD
- continue pantoprazole
#recurrent pleural effusions
status post R Thoracentesis 05/25/2024, 05/29/2023
s/p L thoracentesis 04/19/2023
#hx pericardial effusion
pericardiocentesis with 365 ml bloody effusion removed 06/11/22
pathology negative for malignant cells Asperger syndrome/developmental delay
#essential tremor
#autism/developmental delay
Code status: full code
DVT prophylaxis: Eliquis
[2024-08-06 22:13] LABS: % Basophils 0.4 % (0-2); % Eosinophils 1.8 % (0-6); % Immature Granulocytes 0.5 % (0-0.5); % Lymphocytes 8.7 % (20.5-51.1); % Monocytes 11.2 % (1.7-9.3); % Neutrophils 77.4 % (42.2-75.2); Absolute Eosinophils 0.1 10^3/uL (0-0.7); Absolute Lymphocytes 0.5 10^3/uL (1.2-3.4); Absolute Monocytes 0.6 10^3/uL (0.1-0.6); Absolute Neutrophils 4.4 10^3/uL (1.4-6.5); Hematocrit 49.9 % (39.0-52.0); Hemoglobin 17.1 g/dL (13.0-18.0); Mean Corp Hgb Conc. 34.3 g/dL (33.0-37.0); Mean Corpuscular Hgb 31.6 pg (27.0-31.0); Mean Corpuscular Volume 92.2 fL (80.0-94.0); Mean Platelet Volume 10.6 fL (7.4-10.4); Nucleated Red Blood Cells % 0 % (-); Platelet Count 206 10^3/uL (130-400); Red Blood Cell Count 5.41 10^6/uL (4.70-6.10); Red Cell Dist. Width 14.4 % (11.5-14.5); White Blood Cell Count 5.6 10^3/uL (4.8-10.8)
--- NOTE | 2024-08-06 22:13 | W.PN.UPDATE ---
Update Note
Progress Note Update
Patient seen in conjunction with JUDY. I agree with the findings on history and physical. I concur with the assessment and plan.
Briefly, this is a 74-year-old with past medical history significant for intellectual developmental delay, history of seizure disorder, status post craniectomy, paroxysmal afib, CHF with preserved EF with last echocardiogram in May showing EF of
55 to 60% and unchanged from the previous about 1 month prior to that, history of pleural effusion, hyperlipidemia who presents to the emergency department from his nursing facility for trouble breathing.
Patient really unable to provide any history. According to the records patient is reported to have had some cough and some shortness of breath. They did an x-ray today which shows increasing pleural effusion and bilateral consolidations. They
discussed with cardiology who recommended sending the patient to the ED for evaluation and admission.
Initial vital signs showed a blood pressure of 107/60 with a pulse of 61 and she is satting 100% on room air. He is afebrile. ECG shows normal sinus rhythm with a pulse of 64 and low voltages which are unchanged from prior. Chest x-ray shows
slightly increased in the large right-sided pleural effusion, unchanged small to moderate left-sided pleural effusion. Report shows bilateral atelectasis/consolidation.
Labs pending
On my examination patient does have elevated JVD, bilateral nonpitting edema despite compression socks, lungs are clear. He is alert, oriented to person and pleasant. He is in no acute distress. Satting 100% not requiring any oxygen.
Assessment and plan
I suspect the patient continues to remain volume overloaded likely with associated compressive atelectasis. Although cannot rule out pneumonia at this time.
Possible PNA
- admit to telemetry
- no sputum for culture
- check legionella AG and streptococcal ag
- afebrile and HD stable, no cultures
- check procalcitonin
- start ceftriaxone azithromycin for now, if procal negative will discontinue
- if patient is febrile will need blood cultures as well as culture of the pleural effusion
Pleural effusion/CHF - Unchanged to slighly increased despite daily lasix. No increase in work of breathing or O2 recs
- suspect cardiogenic
- check bnp
- lasix iv 40mg bid for now
- monitor i/os and daily weights
- continue fluid and salt restriction
- if bp does not tolerate diuresis, then right sided thoracentesis.
- cardiology consultation
AFIB - paroxysmal
- continue metoprolol and eliquis
ENEDINA
- continue home CPAP/BIPAP HS
DVT PPX - on eliquis
Code Status - Full Code
[2024-08-06] MEDS: ROCEPHIN 1000 MG IV (22:25)
[2024-08-06] MEDS: ZITHROMAX INFUSION 250 IV (22:33)
[2024-08-06 22:34] LABS: ALT (SGPT) 31 U/L (0-50); AST (SGOT) 43 U/L (17-59); Alkaline Phosphatase 243 U/L (38-126); Blood Urea Nitrogen 27 mg/dl (9-20); Calcium 9.3 mg/dl (8.4-10.2); Carbon Dioxide 27 mmol/L (22-30); Chloride 101 mmol/L (98-107); Estimated Creatinine Clearance 61 ml/min; Glucose 75 mg/dl (70-99); Potassium 4.7 mmol/L (3.5-5.1); Sodium 136 mmol/L (135-145); Total Protein 6.7 g/dl (6.3-8.2); eGFR > 60.00
[2024-08-06 23:00] VITALS: BP 125/112
[2024-08-07] VITALS (11 sets, daily range): BP systolic 89–136; BP diastolic 55–83; PULSE 69–70; O2SAT 96–98; BMI 26.8
[2024-08-07 00:01] LABS: COVID-19 Antigen Negative (Negative)
[2024-08-07 01:15] LABS: NT-proBNP 1790 pg/ml
[2024-08-07 01:40] LABS: Procalcitonin < 0.05 ng/ml (0.0-0.25)
[2024-08-07] MEDS: ALDACTONE 12.5 MG PO (08:13)
[2024-08-07] MEDS: LUMINAL 32.4 MG PO ×3 (08:13→16:16)
[2024-08-07] MEDS: MIRALAX 17 GRAMS PO (08:13)
[2024-08-07] MEDS: TOPROL XL 12.5 MG PO (08:14)
[2024-08-07] MEDS: LEXAPRO 5 MG PO (08:14)
[2024-08-07] MEDS: URECHOLINE 25 MG PO ×2 (08:14→20:13)
[2024-08-07] MEDS: FLOMAX 0.4 MG PO (08:15)
[2024-08-07] MEDS: FEOSOL 325 MG PO (08:15)
[2024-08-07] MEDS: KCL 10 MEQ PO (08:15)
[2024-08-07] MEDS: COLACE 100 MG PO ×2 (08:15→16:16)
[2024-08-07] MEDS: KLONOPIN 0.5 MG PO ×2 (08:15→20:13)
[2024-08-07] MEDS: LEXAPRO 10 MG PO (08:15)
[2024-08-07] MEDS: PROTONIX 40 MG PO (08:15)
[2024-08-07] MEDS: OSCAL 500 + D 500 MG PO ×2 (08:15→16:16)
[2024-08-07] MEDS: LASIX 40 MG IV ×2 (08:15→16:11)
[2024-08-07] MEDS: ELIQUIS 5 MG PO ×2 (08:15→20:13)
[2024-08-07 08:33] LABS: Hematocrit 44.6 % (39.0-52.0); Hemoglobin 15.6 g/dL (13.0-18.0); Mean Corpuscular Hgb 32.3 pg (27.0-31.0); Mean Corpuscular Volume 92.3 fL (80.0-94.0); Mean Platelet Volume 10.9 fL (7.4-10.4); Platelet Count 196 10^3/uL (130-400); Red Blood Cell Count 4.83 10^6/uL (4.70-6.10); Red Cell Dist. Width 14.3 % (11.5-14.5); White Blood Cell Count 5.1 10^3/uL (4.8-10.8)
--- NOTE | 2024-08-07 09:34 | W.PN.HOSP.TC ---
Today's Communication/Plan
-
IV diuresis. Antibiotic
Assessment / Plan
Assessment / Plan
Physical exam:
General: Acutely ill
HEENT: Normocephalic, Atraumatic and Moist Mucous Membranes
Respiratory: Bilateral coarse crackles; Negative Wheezes, Rales or Rhonchi
Cardiac: Regular Rhythm and S1/S2
GI: Soft, Nontender and Nondistended
Musculoskeletal: No Clubbing, No Cyanosis and No Edema
Neuro: Awake, Alert and Oriented
Psych: Calm
A/P:
Acute on chronic diastolic congestive heart failure:
Continue IV Lasix, 40 mg twice a day
Monitor daily weights and ins and outs
Continue GDMT beta-blockers, metoprolol succinate 12.5 mg p.o. daily at MRA spironolactone 12.5 mg p.o. daily
Cardiac monitoring
Cardiology consult appreciated
Bilateral pleural effusions right > left:
Monitor with diuresis
Community-acquired pneumonia:
Continue IV Rocephin and azithromycin
Paroxysmal atrial fibrillation:
Continue rate control beta-jason
Continue anticoagulation Eliquis
Seizure disorder:
Continue AED
Asperger syndrome/developmental delay:
Continue support
DVT prophylaxis:
Eliquis
CODE STATUS:
Full code
Total time spent on today's encounter was 52 minutes which included time spent in counseling the patient/family regarding diagnosis and treatment plan as listed above, goals of care, and symptom management. Case was discussed with nursing staff,
specialists, and care coordinators/case management. All labs and imaging personally reviewed by me. Remainder the time spent in detailed review of previous records, lab data, imaging, and other medical provider documentation.
Anticipated Discharge: 24 - 48 hours
Subjective/Interval History
-
Date of Service: August 07, 2024
Patient still short of breath and peripheral edema present. Some cough. He states that he does not like particularly 'this room'
Objective Data
-
Labs:
Laboratory Results
08/06/24 08/07/24
22:07 08:18
WBC 5.6 5.1
Hgb 17.1 15.6
Hct 49.9 44.6
Plt Count 206 196
Sodium 136 Pending
Potassium 4.7 Pending
Chloride 101 Pending
Carbon Dioxide 27 Pending
BUN 27 H Pending
Creatinine 1.1 Pending
Glucose 75 Pending
Calcium 9.3 Pending
Total Bilirubin 1.0
AST 43
ALT 31
Alkaline Phosphatase 243 H
Vital Signs:
Vital Signs
Temp Pulse Resp BP Pulse Ox
98.0 F 68 18 122/83 98
08/07/24 07:05 08/07/24 08:13 08/07/24 07:05 08/07/24 08:13 08/07/24 07:05
I&O
08/06/24 08/07/24 08/08/24
06:59 06:59 06:59
Intake Total 480 / 480
Balance 480 / 480
[2024-08-07 09:36] LABS: Blood Urea Nitrogen 25 mg/dl (9-20); Calcium 8.9 mg/dl (8.4-10.2); Carbon Dioxide 20 mmol/L (22-30); Chloride 103 mmol/L (98-107); Estimated Creatinine Clearance 60 ml/min; Glucose 66 mg/dl (70-99); Potassium 4.2 mmol/L (3.5-5.1); Sodium 138 mmol/L (135-145); eGFR > 60.00
--- NOTE | 2024-08-07 09:58 | CON.CAR ---
Addendum entered and electronically signed by Robe Romero MD 08/07/24 10:53:
I saw and examined the patient.
The [employer]ing [employer] Sales Associate's note was reviewed and I agree with the note.
Comment: Briefly, 74-year-old man past medical history of heart failure with preserved ejection fraction and Asperger/developmental delay who was seen in the cardiology office yesterday and found to have significant weight gain concerning for acute
on chronic heart failure. It sounds like Lasix was held for low blood pressure as an outpatient which likely precipitated heart failure exacerbation.
Patient appears comfortable today, he is resting in bed on room air and not reporting shortness of breath to me
Mild peripheral edema on exam
Would continue IV Lasix BID
Continue spironolactone as blood pressure tolerates
Check daily weights, ideally standing scale
Follow renal function which is stable
History of A-fib but maintaining sinus rhythm.
Would continue metoprolol and Eliquis
Treatment of possible pneumonia per hospital medicine
Rest per Felicia Perez
Original Note:
Consultation
Consultation Request
Date/Time Consultation Requested: 08/07/2024
Date/Time Consultation Performed: 08/07/2024
Requesting Provider: Dr. Douglas
Performing Provider: Felicia Perez PA-C for Dr. Romero
Reason for Consultation: CHF
Medical History
-
Chief Complaint: weight gain
History of Present Illness:
HPI: Dave is a 74 year old male with PMH of chronic HFpEF, pleural effusions, pericardial effusion, Asperger syndrome/developmental delay, HLD, seizures, tremor, recurrent UTI, and scoliosis. He was seen in [facility] office yesterday 08/06 and weight was
noted to be up to 151lbs as he had not been receiving his lasix due to hypotension. He was sent for urgent chest xray which showed possible pneumonia w/ moderate pleural effusions. He was sent to ER for further evaluation and was admitted with
pneumonia and acute heart failure exacerbation. Cardiology consulted for evaluation. Weight remains stable overnight, but he has no complaints this AM.��������
PMH:
Chronic HFpEF
Recurrent pleural effusions
status post R Thoracentesis 05/25/2024, 05/29/2023
s/p L thoracentesis 04/19/2023
h/o pericardial effusion
pericardiocentesis with 365 ml bloody effusion removed 06/11/22
pathology negative for malignant cells
Asperger syndrome/developmental delay
History of PROPELLER TESTER shunt
Hyperlipidemia
BPH status post TURP
Seizure history
Essential tremor
Recurrent UTI
Laparoscopic cholecystectomy with ventral hernia repair
Scoliosis
Past Medical History
Past Medical History: Other (As above in HPI)
Social History
Tobacco: Non-Smoker
Alcohol: None
Drug: None
Living: Other (half-way)
Employment: Not Employed
Family History
Family History: Reviewed & Not Pertinent
Allergies / Home Medications
Allergy/AdvReac Type Severity Reaction Status Date / Time
No Known Allergies Allergy Verified 08/06/24 16:55
�Medication �Instructions �Recorded �Confirmed �Type
chlorhexidine gluconate 0.12 % 15 ml mucous membrane BID DENTAL 02/24/19 08/06/24 History
mouthwash
clonazepam 0.5 mg tablet 0.5 mg PO BID Mental Health/Anxiety 02/24/19 08/06/24 History
docusate sodium 100 mg capsule 100 mg PO BID@0800,1600 02/24/19 08/06/24 History
Constipation
phenobarbital 32.4 mg tablet 32.4 mg PO TID@0800,1200,1600 02/24/19 08/06/24 History
Seizures
calcium 500 mg (as 1 tab PO BID@0800,1600 Supplement 12/07/21 08/06/24 History
carbonate)-vitamin D3 5 mcg (200
unit) tablet (Oyster Shell
Calcium-Vitamin D3)
polyethylene glycol 3350 17 gram 17 grams PO DAILY Constipation 12/07/21 08/06/24 History
oral powder packet
escitalopram oxalate 10 mg tablet 10 mg PO DAILY Mental 02/13/22 08/06/24 History
Health/Anxiety
escitalopram oxalate 5 mg tablet 5 mg PO DAILY Mental Health/Anxiety 02/13/22 08/06/24 History
simvastatin 10 mg tablet 10 mg PO QPM High cholesterol 02/13/22 08/06/24 History
tamsulosin 0.4 mg capsule 0.4 mg PO DAILY Urinary issue 02/13/22 08/06/24 History
acetaminophen 325 mg tablet 650 mg PO Q4HPRN PRN mild 04/17/23 08/06/24 History
pain/fever
bethanechol chloride 25 mg tablet 25 mg PO BID Urinary Issue 04/17/23 08/06/24 History
guaifenesin 100 mg/5 mL oral liquid 100 - 200 mg PO Q4HPRN PRN cough 04/17/23 08/06/24 History
methylcellulose (laxative) 500 mg 1,000 mg PO BID@0800,1600 04/17/23 08/06/24 History
tablet (Citrucel) Constipation
nystatin 100,000 unit/gram topical 1 applic topical BIDPRN PRN rash 04/17/23 08/06/24 History
ointment
pantoprazole 40 mg tablet,delayed 40 mg PO DAILY GERD #30 tabs 04/21/23 08/06/24 Rx
release (Protonix)
spironolactone 25 mg tablet 12.5 mg (1/2 x 25 mg) PO DAILY #30 05/21/23 08/06/24 Rx
tabs
bismuth subsalicylate 525 mg/15 mL 525 mg PO TIDPRN PRN 05/28/24 08/06/24 History
oral suspension (Stomach Relief) nausea/diarrhea
carboxymethylcellulose 0.5 1 drp BOTH EYES DAILYPRN PRN dry 05/28/24 08/06/24 History
%-glycerin 0.9 % eye drops eyes
(Refresh Optive)
ferrous sulfate 325 mg (65 mg 325 mg PO DAILY Supplement 05/28/24 08/06/24 History
iron) tablet
potassium chloride 10 mEq 10 meq PO DAILY Supplement 05/28/24 08/06/24 History
tablet,extended release
apixaban 5 mg tablet (Eliquis) 5 mg PO BID #60 tabs 06/01/24 08/06/24 Rx
metoprolol succinate 25 mg 12.5 mg (1/2 x 25 mg) PO DAILY #30 06/01/24 08/06/24 Rx
tablet,extended release 24 hr tabs
furosemide 40 mg tablet 40 mg PO BID@0800,1600 #60 tabs 06/02/24 08/06/24 Rx
Review of Systems
-
History Source: Patient
All other systems: Negative unless noted
Physical Exam
Vital Signs
Temp Pulse Resp BP Pulse Ox
98.0 F 68 18 122/83 98
08/07/24 07:05 08/07/24 08:13 08/07/24 07:05 08/07/24 08:13 08/07/24 07:05
Lab Results
08/07/24 08:18
08/07/24 08:18
Acf-U-Auxsllmaprf Pept 1790 pg/ml 08/07/24 00:42
Physical Exam
General: No Apparent Distress
HEENT: Normocephalic, Anicteric and Moist Mucous Membranes
Respiratory: Crackles, Rhonchi and Non Labored Respirations
Cardiac: S1/S2 and Regular Rhythm
Musculoskeletal: No Clubbing, No Cyanosis and Edema
Skin: Warm and Dry
Neuro: Awake, Alert and Oriented
Psych: Calm
Impression / Plan
-
PCP: JUDY Gupta
Acidity Tester: Dr. Lisa
Impression:
Presented with weight gain, SOB
Acute on chronic HFpEF
Recurrent pleural effusions
s/p R Thoracentesis 05/25/2024, 05/29/2023
s/p L thoracentesis 04/19/2023
h/o pericardial effusion
pericardiocentesis with 365 ml bloody effusion removed 06/11/22
pathology negative for malignant cells
Asperger syndrome/developmental delay
History of PROPELLER TESTER shunt
Hyperlipidemia
BPH status post TURP
Seizure history
Essential tremor
Recurrent UTI
Laparoscopic cholecystectomy with ventral hernia repair
Scoliosis
Echo 06/09/22: EF 50-55% with pulmonary artery pressure 30 to 35 mmHg, at least moderate pericardial effusion
Echo 06/11/22: Moderate pericardial effusion with resolution of pericardial effusion after the completion of the procedure.
Echo 07/2022: EF 50-55% with mild MR and TR and no pericardial or pleural effusions.
Echo 04/19/2023: EF 55-60%, mild to moderate MR, mildly dilated left atrium
Echo 04/03/2024: EF 55 to 60%, mild to moderate MR, mild to moderate TR, mobile echodensity in right atrium consistent with prominent Chiari network
Echo 05/29/24: EF 55 to 60%, dilated bilateral atria, trivial pericardial effusion, pleural effusion present, no significant change compared to prior
Echo 06/24/24: EF 55 to 60%, trivial pericardial effusion, pleural effusion present
Plan:
-Presented from cardiology office w/ weight gain, SOB. Admitted with pneumonia, acute heart failure exacerbation.
-Agree w/ diuresis with IV lasix 40mg BID. Creat stable at 0.9.
-Weight 151 lbs. Continue to follow daily weights, I&Os.
-Echo 06/24 noted preserved EF. Known h/o mild to moderate MR.
-CXR 08/06 noted moderate R with small L pleural effusion as well as b/l lower lobe consolidations
-Continue abx per primary service.
-Continue Toprol, spironolactone. BP stable.
-Continue Eliquis 5mg BID.
HPI: Dave is a 74 year old male with PMH of chronic HFpEF, pleural effusions, pericardial effusion, Asperger syndrome/developmental delay, HLD, seizures, tremor, recurrent UTI, and scoliosis. He was seen in [facility] office yesterday 08/06 and weight was
noted to be up to 151lbs as he had not been receiving his lasix due to hypotension. He was sent for urgent chest xray which showed possible pneumonia w/ moderate pleural effusions. He was sent to ER for further evaluation and was admitted with
pneumonia and acute heart failure exacerbation. Cardiology consulted for evaluation. Weight remains stable overnight, but he has no complaints this AM.��������
Data Reviewed
-
EKG: Tracing Personally Visualized and interpreted
Radiology: Report Reviewed by me
Labs: Labs Reviewed by me
Old Records: Reviewed
[2024-08-07] MEDS: ZITHROMAX 500 MG PO (14:20)
[2024-08-07] MEDS: FLUSH (NSS) 2 FLUSH IV (16:25)
[2024-08-07] MEDS: LIPITOR 10 MG PO (17:44)
[2024-08-07] MEDS: STERILE WATER FOR INJECTION 10 ML IV (21:15)
[2024-08-07] MEDS: ROCEPHIN 1000 MG IV (21:15)
[2024-08-08 05:32] VITALS: BMI 27.0
[2024-08-08 05:52] VITALS: BMI 26.4
[2024-08-08 07:40] VITALS: BP 110/71
--- NOTE | 2024-08-08 08:45 | W.PN.HOSP.TC ---
Today's Communication/Plan
-
IV Lasix. Antibiotics
Assessment / Plan
Assessment / Plan
Physical exam:
General: Acutely ill
HEENT: Normocephalic, Atraumatic and Moist Mucous Membranes
Respiratory: Bilateral coarse crackles; Negative Wheezes, Rales or Rhonchi
Cardiac: Regular Rhythm and S1/S2
GI: Soft, Nontender and Nondistended
Musculoskeletal: No Clubbing, No Cyanosis and No Edema
Neuro: Awake, Alert and Oriented
Psych: Calm
A/P:
Acute on chronic diastolic congestive heart failure:
Continue IV Lasix, 40 mg twice a day
Monitor daily weights and ins and outs
Continue GDMT beta-blockers, metoprolol succinate 12.5 mg p.o. daily at MRA spironolactone 12.5 mg p.o. daily
Cardiac monitoring
Cardiology consult appreciated
PT recommends no need
OT recommends [facility] assist[facility]assisted living
Discussed with child welfare caseworker to look into facility acceptance if he would be ready to discharge over the next 24 hours
Bilateral pleural effusions right > left:
Monitor with diuresis
Community-acquired pneumonia:
Continue IV Rocephin and azithromycin
Paroxysmal atrial fibrillation:
Continue rate control beta-jason
Continue anticoagulation Eliquis
Seizure disorder:
Continue AED
Asperger syndrome/developmental delay:
Continue support
DVT prophylaxis:
Eliquis
CODE STATUS:
Full code
Total time spent on today's encounter was 52 minutes which included time spent in counseling the patient/family regarding diagnosis and treatment plan as listed above, goals of care, and symptom management. Case was discussed with nursing staff,
specialists, and care coordinators/case management. All labs and imaging personally reviewed by me. Remainder the time spent in detailed review of previous records, lab data, imaging, and other medical provider documentation.
Anticipated Discharge: 24 - 48 hours
Subjective/Interval History
-
Date of Service: August 08, 2024
Patient with shortness of breath and cough. Afebrile
Objective Data
-
Labs:
Laboratory Results
08/08/24
08:16
WBC Pending
Hgb Pending
Hct Pending
Plt Count Pending
Sodium Pending
Potassium Pending
Chloride Pending
Carbon Dioxide Pending
BUN Pending
Creatinine Pending
Glucose Pending
Calcium Pending
Vital Signs:
Vital Signs
Temp Pulse Resp BP Pulse Ox
97.6 F 70 16 110/71 100
08/08/24 07:40 08/08/24 07:40 08/08/24 07:40 08/08/24 07:40 08/08/24 07:40
I&O
08/07/24 08/08/24 08/09/24
06:59 06:59 06:59
Intake Total 480 / 480 1380 / 1380
Output Total 1350 / 1350
Balance 480 / 480 30 / 30
--- NOTE | 2024-08-08 08:46 | W.PN.CARDCBS ---
Today's Communication / Plan
-
Cont IV Lasix diuresis today
Impression / Plan
-
PCP: JUDY Gupta
Software Reverse Engineer: Dr. Lisa
Impression:
Presented with weight gain, SOB and diagnosed with acute on chronic HFpEF
Recurrent pleural effusions
s/p R Thoracentesis 05/25/2024, 05/29/2023
s/p L thoracentesis 04/19/2023
h/o pericardial effusion
pericardiocentesis with 365 ml bloody effusion removed 06/11/22
pathology negative for malignant cells
Asperger syndrome/developmental delay
History of RN CHEMICAL DEPENDENCY shunt
Hyperlipidemia
BPH status post TURP
Seizure history
Essential tremor
Recurrent UTI
Laparoscopic cholecystectomy with ventral hernia repair
Scoliosis
Echo 06/09/22: EF 50-55% with pulmonary artery pressure 30 to 35 mmHg, at least moderate pericardial effusion
Echo 06/11/22: Moderate pericardial effusion with resolution of pericardial effusion after the completion of the procedure.
Echo 07/2022: EF 50-55% with mild MR and TR and no pericardial or pleural effusions.
Echo 04/19/2023: EF 55-60%, mild to moderate MR, mildly dilated left atrium
Echo 04/03/2024: EF 55 to 60%, mild to moderate MR, mild to moderate TR, mobile echodensity in right atrium consistent with prominent Chiari network
Echo 05/29/24: EF 55 to 60%, dilated bilateral atria, trivial pericardial effusion, pleural effusion present, no significant change compared to prior
Echo 06/24/24: EF 55 to 60%, trivial pericardial effusion, pleural effusion present
Plan:
Presented from cardiology office w/ weight gain, SOB. Admitted with pneumonia, acute heart failure exacerbation. proBNP on admission is 1790
With IV Lasix diuresis, weight is down. Exact decrease in weight is not 100% sure but possibly down 2 pounds. Fluid balance -1200 cc
A.m. laboratories are pending
Continue Lasix 40 mg IV twice daily today, possible reduction to oral Lasix over the next 24 hours
Suspected pneumonia which is likely contributing to his shortness of breath.
Antibiotics as per primary service
History of paroxysmal atrial fibrillation, currently in sinus rhythm
Maintain Toprol-XL 12.5 mg daily
Maintain Eliquis 5 mg twice daily for atrial fibrillation related thromboembolic risk reduction
Recurrent pleural effusions
Management as per primary service
Maintain spironolactone
HPI: Dave is a 74 year old male with PMH of chronic HFpEF, pleural effusions, pericardial effusion, Asperger syndrome/developmental delay, HLD, seizures, tremor, recurrent UTI, and scoliosis. He was seen in [facility] office yesterday 08/06 and weight was
noted to be up to 151lbs as he had not been receiving his lasix due to hypotension. He was sent for urgent chest xray which showed possible pneumonia w/ moderate pleural effusions. He was sent to ER for further evaluation and was admitted with
pneumonia and acute heart failure exacerbation. Cardiology consulted for evaluation. Weight remains stable overnight, but he has no complaints this AM.��������
Progress Note - Software Reverse Engineer
Subjective
Date of Service: August 08, 2024
sitting in bed eating breakfast and tells me he feels fine, denies SOB
Objective
Labs:
Labs
Hgb 15.6 g/dL (13.0-18.0) 08/07/24 08:18
Hct 44.6 % (39.0-52.0) 08/07/24 08:18
Plt Count 196 10^3/uL (130-400) 08/07/24 08:18
Sodium 138 mmol/L (135-145) 08/07/24 08:18
Potassium 4.2 mmol/L (3.5-5.1) 08/07/24 08:18
BUN 25 mg/dl (9-20) H 08/07/24 08:18
Creatinine 0.9 mg/dL (0.7-1.3) 08/07/24 08:18
Glucose 66 mg/dl (70-99) L 08/07/24 08:18
Vital Signs and I&O:
Vital Signs
Temp Pulse Resp BP Pulse Ox
97.6 F 70 16 110/71 100
08/08/24 07:40 08/08/24 07:40 08/08/24 07:40 08/08/24 07:40 08/08/24 07:40
Vital Signs
Temp Pulse Resp BP Pulse Ox
97.6 F 70 16 110/71 100
08/08/24 07:40 08/08/24 07:40 08/08/24 07:40 08/08/24 07:40 08/08/24 07:40
Intake & Output
08/06/24 08/07/24 08/08/24 08/09/24
06:59 06:59 06:59 06:59
Intake Total 480 / 480 1380 / 1380
Output Total 1350 / 1350
Balance 480 / 480 30 / 30
Physical Exam
Physical Exam
Well appearing, no distress
RRR, NO S3 or S4, 1/6 AHSM and no rubs
Lungs clear BL
Ext +1 pre-tibial edema b/l
--- NOTE | 2024-08-08 08:57 | CM ---
Spoke with RN from [facility] home pt lives at. As per EDGARDO Templeton RN pt is alert awake oriented.They have ramp to enter . He is assisted in all activities of daily living.He uses a walker wheelchair which is here at hospital.Facility
has transportation for him to return but he needs to be dc early in day to arrange ride meds etc.Report to be called to [phone] or [phone] FAX [phone].
Yadav letter explained to Edgardo BUNCH at facility.
[facility] hx / No SNF history
Pharmacy [facility] [address]
Josefa Farley FRONT OFFICE JAVA DEVELOPER
PLAN Return to assisted living [facility] Report to be called to [phone] or [phone] FAX [phone].
[2024-08-08] MEDS: MIRALAX 17 GRAMS PO (09:21)
[2024-08-08] MEDS: URECHOLINE 25 MG PO ×2 (09:21→20:05)
[2024-08-08] MEDS: OSCAL 500 + D 500 MG PO ×2 (09:21→17:42)
[2024-08-08] MEDS: TOPROL XL 12.5 MG PO (09:21)
[2024-08-08] MEDS: ZITHROMAX 500 MG PO (09:21)
[2024-08-08] MEDS: LUMINAL 32.4 MG PO ×3 (09:22→17:41)
[2024-08-08] MEDS: LEXAPRO 10 MG PO (09:22)
[2024-08-08] MEDS: LEXAPRO 5 MG PO (09:22)
[2024-08-08] MEDS: FEOSOL 325 MG PO (09:22)
[2024-08-08] MEDS: ELIQUIS 5 MG PO ×2 (09:22→20:04)
[2024-08-08] MEDS: KCL 10 MEQ PO (09:22)
[2024-08-08] MEDS: PROTONIX 40 MG PO (09:22)
[2024-08-08] MEDS: KLONOPIN 0.5 MG PO ×2 (09:22→20:04)
[2024-08-08] MEDS: FLOMAX 0.4 MG PO (09:23)
[2024-08-08] MEDS: ALDACTONE 12.5 MG PO (09:23)
[2024-08-08] MEDS: LASIX 40 MG IV ×2 (09:23→17:42)
[2024-08-08] MEDS: COLACE 100 MG PO ×2 (09:23→17:42)
[2024-08-08 09:42] LABS: Blood Urea Nitrogen 24 mg/dl (9-20); Calcium 8.9 mg/dl (8.4-10.2); Carbon Dioxide 27 mmol/L (22-30); Chloride 103 mmol/L (98-107); Estimated Creatinine Clearance 60 ml/min; Glucose 54 mg/dl (70-99); Potassium 3.7 mmol/L (3.5-5.1); Sodium 137 mmol/L (135-145); eGFR > 60.00
[2024-08-08 09:44] LABS: % Basophils 0.7 % (0-2); % Eosinophils 2.4 % (0-6); % Immature Granulocytes 0.7 % (0-0.5); % Monocytes 10.5 % (1.7-9.3); % Neutrophils 77.7 % (42.2-75.2); Absolute Eosinophils 0.1 10^3/uL (0-0.7); Absolute Lymphocytes 0.3 10^3/uL (1.2-3.4); Absolute Monocytes 0.4 10^3/uL (0.1-0.6); Absolute Neutrophils 3.2 10^3/uL (1.4-6.5); Hematocrit 46.8 % (39.0-52.0); Mean Corp Hgb Conc. 34.2 g/dL (33.0-37.0); Mean Corpuscular Hgb 31.8 pg (27.0-31.0); Nucleated Red Blood Cells % 0 % (-); Red Blood Cell Count 5.03 10^6/uL (4.70-6.10); Red Cell Dist. Width 14.6 % (11.5-14.5); White Blood Cell Count 4.1 10^3/uL (4.8-10.8)
[2024-08-08 10:08] LABS: Glucose - Point of Care 59 mg/dl (70-99)
[2024-08-08 10:27] LABS: Glucose - Point of Care 63 mg/dl (70-99)
[2024-08-08 10:44] LABS: Glucose - Point of Care 95 mg/dl (70-99)
[2024-08-08 13:55] LABS: Glucose - Point of Care 119 mg/dl (70-99)
[2024-08-08 15:10] VITALS: BP 98/72
[2024-08-08] MEDS: LIPITOR 10 MG PO (17:42)
[2024-08-08 17:48] VITALS: BP 102/68
[2024-08-08] MEDS: STERILE WATER FOR INJECTION 10 ML IV (21:06)
[2024-08-08] MEDS: ROCEPHIN 1000 MG IV (21:06)
[2024-08-08 23:00] VITALS: BP 95/61
[2024-08-09 05:34] VITALS: BMI 26.2
[2024-08-09 07:25] LABS: Blood Urea Nitrogen 25 mg/dl (9-20); Calcium 8.6 mg/dl (8.4-10.2); Carbon Dioxide 26 mmol/L (22-30); Chloride 102 mmol/L (98-107); Estimated Creatinine Clearance 60 ml/min; Glucose 71 mg/dl (70-99); Potassium 3.9 mmol/L (3.5-5.1); Sodium 135 mmol/L (135-145); eGFR > 60.00
[2024-08-09] MEDS: ELIQUIS 5 MG PO ×2 (07:55→19:23)
[2024-08-09] MEDS: FLOMAX 0.4 MG PO (07:55)
[2024-08-09] MEDS: KLONOPIN 0.5 MG PO ×2 (07:55→19:23)
[2024-08-09] MEDS: OSCAL 500 + D 500 MG PO ×2 (07:56→16:52)
[2024-08-09] MEDS: KCL 10 MEQ PO (07:56)
[2024-08-09] MEDS: LEXAPRO 10 MG PO (07:56)
[2024-08-09] MEDS: LUMINAL 32.4 MG PO ×3 (07:56→16:52)
[2024-08-09] MEDS: URECHOLINE 25 MG PO ×2 (07:56→19:23)
[2024-08-09] MEDS: ZITHROMAX 500 MG PO (07:56)
[2024-08-09] MEDS: ALDACTONE 12.5 MG PO (07:56)
[2024-08-09] MEDS: PROTONIX 40 MG PO (07:56)
[2024-08-09] MEDS: LEXAPRO 5 MG PO (07:56)
[2024-08-09] MEDS: COLACE 100 MG PO ×2 (07:57→16:52)
[2024-08-09] MEDS: LASIX 40 MG IV (07:57)
[2024-08-09] MEDS: MIRALAX 17 GRAMS PO (07:57)
[2024-08-09] MEDS: FEOSOL 325 MG PO (07:57)
[2024-08-09] MEDS: OMNICEF 300 MG PO ×2 (07:58→19:23)
[2024-08-09] MEDS: TOPROL XL 12.5 MG PO (07:59)
[2024-08-09 08:00] VITALS: BP 101/53
--- NOTE | 2024-08-09 08:56 | W.PN.HOSP.TC ---
Today's Communication/Plan
-
Change to oral diuretics and antibiotics. Discharge planning
Assessment / Plan
Assessment / Plan
Physical exam:
General: Acutely ill
HEENT: Normocephalic, Atraumatic and Moist Mucous Membranes
Respiratory: Bilateral coarse crackles; Negative Wheezes, Rales or Rhonchi
Cardiac: Regular Rhythm and S1/S2
GI: Soft, Nontender and Nondistended
Musculoskeletal: No Clubbing, No Cyanosis and No Edema
Neuro: Awake, Alert and Oriented
Psych: Calm
A/P:
Acute on chronic diastolic congestive heart failure:
Continue IV Lasix, 40 mg twice a day and probably switch to oral today
Monitor daily weights and ins and outs
Continue GDMT beta-blockers, metoprolol succinate 12.5 mg p.o. daily at MRA spironolactone 12.5 mg p.o. daily
Cardiac monitoring
Cardiology consult appreciated
PT recommends no need
OT recommends residential assist/assisted living
Discussed with family over the phone sister Jennifer today
gis manager to look into acceptance back to facility
Bilateral pleural effusions right > left:
Monitor with diuresis
Community-acquired pneumonia:
Change IV antibiotics to oral
Paroxysmal atrial fibrillation:
Continue rate control beta-jason
Continue anticoagulation Eliquis
Seizure disorder:
Continue AED
Asperger syndrome/developmental delay:
Continue support
DVT prophylaxis:
Eliquis
CODE STATUS:
Full code
Anticipated Discharge: Within 24 hours
Subjective/Interval History
-
Date of Service: August 09, 2024
Objective Data
-
Labs:
Laboratory Results
08/09/24
06:44
Sodium 135
Potassium 3.9
Chloride 102
Carbon Dioxide 26
BUN 25 H
Creatinine 0.9
Glucose 71
Calcium 8.6
Vital Signs:
Vital Signs
Temp Pulse Resp BP Pulse Ox
98.2 F 68 18 95/61 98
08/08/24 23:00 08/08/24 23:00 08/08/24 23:00 08/08/24 23:00 08/08/24 23:00
I&O
08/08/24 08/09/24 08/10/24
06:59 06:59 06:59
Intake Total 1380 / 1380 990 / 990
Output Total 1350 / 1350 1850 / 1850
Balance 30 / 30 -860 / -860
--- NOTE | 2024-08-09 11:31 | W.PN.CARDCBS ---
Today's Communication / Plan
-
Transitioning from IV to oral Lasix today
Impression / Plan
-
PCP: JUDY Gupta
Correspondence Review Clerk: Dr. Lisa
Impression:
Presented with weight gain, SOB and diagnosed with acute on chronic HFpEF
Recurrent pleural effusions
s/p R Thoracentesis 05/25/2024, 05/29/2023
s/p L thoracentesis 04/19/2023
h/o pericardial effusion
pericardiocentesis with 365 ml bloody effusion removed 06/11/22
pathology negative for malignant cells
Asperger syndrome/developmental delay
History of FIBERGLASS FINISHER shunt
Hyperlipidemia
BPH status post TURP
Seizure history
Essential tremor
Recurrent UTI
Laparoscopic cholecystectomy with ventral hernia repair
Scoliosis
Echo 06/09/22: EF 50-55% with pulmonary artery pressure 30 to 35 mmHg, at least moderate pericardial effusion
Echo 06/11/22: Moderate pericardial effusion with resolution of pericardial effusion after the completion of the procedure.
Echo 07/2022: EF 50-55% with mild MR and TR and no pericardial or pleural effusions.
Echo 04/19/2023: EF 55-60%, mild to moderate MR, mildly dilated left atrium
Echo 04/03/2024: EF 55 to 60%, mild to moderate MR, mild to moderate TR, mobile echodensity in right atrium consistent with prominent Chiari network
Echo 05/29/24: EF 55 to 60%, dilated bilateral atria, trivial pericardial effusion, pleural effusion present, no significant change compared to prior
Echo 06/24/24: EF 55 to 60%, trivial pericardial effusion, pleural effusion present
Plan:
Presented from cardiology office w/ weight gain, SOB. Admitted with pneumonia, acute heart failure exacerbation. proBNP on admission is 1790
With IV Lasix diuresis, weight is down, another 1 lb today.. Exact decrease in weight is not 100% sure but possibly down 3 pounds this adm. Adm total fluid balance -2 L
Stop IV Lasix after this morning's dose and then resume outpatient dose of 40 mg twice daily
Suspected pneumonia which is likely contributing to his shortness of breath.
Antibiotics as per primary service
History of paroxysmal atrial fibrillation, currently in sinus rhythm
Maintain Toprol-XL 12.5 mg daily
Maintain Eliquis 5 mg twice daily for atrial fibrillation related thromboembolic risk reduction
Recurrent pleural effusions
Management as per primary service
Maintain spironolactone
Will sign off, please give us a call back if we can be of further assistance.
HPI: Dave is a 74 year old male with PMH of chronic HFpEF, pleural effusions, pericardial effusion, Asperger syndrome/developmental delay, HLD, seizures, tremor, recurrent UTI, and scoliosis. He was seen in [facility] office yesterday 08/06 and weight was
noted to be up to 151lbs as he had not been receiving his lasix due to hypotension. He was sent for urgent chest xray which showed possible pneumonia w/ moderate pleural effusions. He was sent to ER for further evaluation and was admitted with
pneumonia and acute heart failure exacerbation. Cardiology consulted for evaluation. Weight remains stable overnight, but he has no complaints this AM.��������
Progress Note - Correspondence Review Clerk
Subjective
Date of Service: August 09, 2024
No chest pain shortness of breath palpitations or dizziness
Objective
Labs:
08/08/24 08:16
08/09/24 06:44
Labs
Hgb 16.0 g/dL (13.0-18.0) 08/08/24 08:16
Hct 46.8 % (39.0-52.0) 08/08/24 08:16
Plt Count 10^3/uL (130-400) 08/08/24 08:16
Sodium 135 mmol/L (135-145) 08/09/24 06:44
Potassium 3.9 mmol/L (3.5-5.1) 08/09/24 06:44
BUN 25 mg/dl (9-20) H 08/09/24 06:44
Creatinine 0.9 mg/dL (0.7-1.3) 08/09/24 06:44
Glucose 71 mg/dl (70-99) 08/09/24 06:44
Vital Signs and I&O:
Vital Signs
Temp Pulse Resp BP Pulse Ox
97.6 F 80 18 101/53 97
08/09/24 08:00 08/09/24 08:00 08/09/24 08:00 08/09/24 08:00 08/09/24 08:00
Vital Signs
Temp Pulse Resp BP Pulse Ox
97.6 F 80 18 101/53 97
08/09/24 08:00 08/09/24 08:00 08/09/24 08:00 08/09/24 08:00 08/09/24 08:00
Intake & Output
08/07/24 08/08/24 08/09/24 08/10/24
06:59 06:59 06:59 06:59
Intake Total 480 / 480 1380 / 1380 990 / 990
Output Total 1350 / 1350 1850 / 1850
Balance 480 / 480 30 / 30 -860 / -860
Physical Exam
Physical Exam
Well-appearing, no acute distress
Regular rate and rhythm with normal S1 and S2, no S3 no S4 degree 1/6 apical systolic murmur no rub
Lungs are clear to auscultation bilateral
[2024-08-09] MEDS: LIPITOR 10 MG PO (16:52)
[2024-08-09] MEDS: LASIX 40 MG PO (16:52)
[2024-08-09 17:57] VITALS: BP 114/72
[2024-08-09 22:55] VITALS: BP 112/66
[2024-08-10 05:11] VITALS: BMI 26.6
[2024-08-10 07:23] VITALS: BP 102/71
[2024-08-10] MEDS: MIRALAX 17 GRAMS PO (08:34)
[2024-08-10] MEDS: FLOMAX 0.4 MG PO (08:34)
[2024-08-10] MEDS: ALDACTONE 12.5 MG PO (08:34)
[2024-08-10] MEDS: TOPROL XL 12.5 MG PO (08:34)
[2024-08-10] MEDS: URECHOLINE 25 MG PO ×2 (08:35→20:23)
[2024-08-10] MEDS: KCL 10 MEQ PO (08:35)
[2024-08-10] MEDS: OMNICEF 300 MG PO ×2 (08:36→20:26)
[2024-08-10] MEDS: LASIX 40 MG PO (08:36)
[2024-08-10] MEDS: ZITHROMAX 500 MG PO (08:36)
[2024-08-10] MEDS: KLONOPIN 0.5 MG PO ×2 (08:36→20:25)
[2024-08-10] MEDS: LEXAPRO 10 MG PO (08:36)
[2024-08-10] MEDS: FEOSOL 325 MG PO (08:36)
[2024-08-10] MEDS: PROTONIX 40 MG PO (08:36)
[2024-08-10] MEDS: OSCAL 500 + D 500 MG PO ×2 (08:36→15:25)
[2024-08-10] MEDS: COLACE 100 MG PO ×2 (08:36→15:25)
[2024-08-10] MEDS: ELIQUIS 5 MG PO ×2 (08:36→20:25)
[2024-08-10] MEDS: LEXAPRO 5 MG PO (08:37)
[2024-08-10] MEDS: LUMINAL 32.4 MG PO ×3 (08:37→15:25)
[2024-08-10 11:07] LABS: Blood Urea Nitrogen 24 mg/dl (9-20); Calcium 8.8 mg/dl (8.4-10.2); Carbon Dioxide 27 mmol/L (22-30); Chloride 100 mmol/L (98-107); Estimated Creatinine Clearance 60 ml/min; Glucose 85 mg/dl (70-99); Sodium 135 mmol/L (135-145); eGFR > 60.00
--- NOTE | 2024-08-10 13:07 | W.PN.HOSP.TC ---
Today's Communication/Plan
-
DC
Assessment / Plan
Assessment / Plan
P
A/P:
Acute on chronic diastolic congestive heart failure:
Improved. Diuretics switched to oral by cardiology
Continue GDMT beta-blockers, metoprolol succinate 12.5 mg p.o. daily at MRA spironolactone 12.5 mg p.o. daily
Cardiology consult appreciated
PT recommends no need
OT recommends [facility] assist/assisted living
maintenance and engineering manager to look into acceptance back to facility
Bilateral pleural effusions right > left:
Monitor with diuresis
Bilateral lower lobe consolidation right more than left-clinically suspicious more for bilateral compressive atelectasis from pleural effusions than pneumonia. Patient was afebrile on admission and white count was normal landing including normal
procalcitonin. Patient nontoxic without any audible cough.
Would favor holding antibiotics.
Paroxysmal atrial fibrillation:
Continue rate control beta-jason
Continue anticoagulation Eliquis
Seizure disorder:
Continue AED
Asperger syndrome/developmental delay:
Continue support
DVT prophylaxis:
Eliquis
CODE STATUS:
Full code
Medically stable for discharge home
More than 30 minutes spent in discharge including
Final examination of the patient
Summarizing hospital stay
Instructions for continuing care to all relevant caregivers
Preparation of discharge records, prescriptions, and referral forms
Total time spent (in minutes): 32
Anticipated Discharge: Today
Subjective/Interval History
-
Date of Service: August 10, 2024
Denies any shortness of breath. Denies any cough. No fever chills.
Inquires about discharge.
Objective Data
-
Labs:
Laboratory Results
08/10/24
09:53
Sodium 135
Potassium 4.0
Chloride 100
Carbon Dioxide 27
BUN 24 H
Creatinine 0.9
Glucose 85
Calcium 8.8
Vital Signs:
Vital Signs
Temp Pulse Resp BP Pulse Ox
97.6 F 71 16 102/71 97
08/10/24 07:23 08/10/24 08:34 08/10/24 07:23 08/10/24 08:34 08/10/24 07:23
I&O
08/09/24 08/10/24 08/11/24
06:59 06:59 06:59
Intake Total 990 / 990 720 / 720
Output Total 1850 / 1850 1950 / 1950
Balance -860 / -860 -1230 / -1230
Review of Systems
-
Unable to obtain full review of systems at this time due to: Other (Intellectual developmental disability)
Physical Exam
-
General: No Apparent Distress
HEENT: Moist Mucous Membranes
Respiratory: Clear to Auscultation
Cardiac: Regular Rhythm and S1/S2
GI: Soft
Neuro: Awake, Alert and Oriented (Self)
Psych: Calm
Data Reviewed
-
Labs: Labs Reviewed by me
--- NOTE | 2024-08-10 14:30 | PTCARENOTE ---
Report called to [phone] to Lynne Perez. Lynne informed this RN that facility will be by tomorrow to hop picker patient.
--- NOTE | 2024-08-10 14:30 | CM ---
Received notification that patient is medically stable for discharge. Placed a call to [facility] and spoke with Lynne his RN who stated that patient would need to return tomorrow as they would have to arrange for transportation and pickling operator
his medications. Lynne asked that patient's meds and continuum of care be faxed to [phone]. # For report # [phone].
Lynne stated that they will be able to pick patient up at 10:30am tomorrow pending review of all medications.
Lynne was advised that functionally, patient is at baseline/close to baseline.
Plan: Case management will continue to follow and assist with discharge planning. Back to [facility].
[2024-08-10 15:10] VITALS: BP 103/68
[2024-08-10] MEDS: LASIX PO (15:30)
--- NOTE | 2024-08-10 17:07 | W.DCSUMMARY ---
Discharge Summary
Discharge Data
Date of Admission: 08/10/24
Date of Discharge: 08/10/24
-
Pending Results: No
Hospital Course
Primary diagnosis:
Acute on chronic diastolic heart failure
Bilateral pleural effusions-right more than left
Secondary diagnosis:
Paroxysmal atrial fibrillation
Seizure disorder
Asperger syndrome/developmental delay
Hospital course:
Patient presented with increasing shortness of breath and discovered to have acute exacerbation of chronic diastolic heart failure. He had a bilateral pleural effusion right more than left. There was underlying bilateral lower lobe consolidation
more suspicious of bilateral compressive atelectasis than pneumonia. He was seen by cardiology and was put on diuretics with improvement in his clinical symptoms and weight and he was discharged back to his facility on oral Lasix. His weight
improved from 156 to 149 pounds. Creatinine was stable and it was 0.9 at the time of discharge. Saturating well on room air 96%. Toconsider follow-up chest x-ray in couple of weeks to see how his pleural effusions are evolving or earlier if
symptomatic.
Consultants on board:
Cardiology-Robe Sheikh
Discharge Plan
-
Patient Disposition: Assisted Living
Discharge Diagnosis/Procedures: Acute on chronic CHF decompensation
Diet: Low Cholesterol and 2 Gram Sodium
Activity: As tolerated
Driving Restrictions: No driving
Bathing Restrictions: None
Others Tests: Chest xray in 1-2 week to follow on pleural effusions
Specialty Instructions: Weigh Daily- Call MD for wt gain/loss 3 lbs overnight/5 lbs in 1 week
Referrals:
UNKNOWN - PT DOES,NOT KNOW [Family Provider] -
Prescriptions:
Continued
clonazepam 0.5 MG tablet
0.5 mg PO BID
docusate sodium 100 MG capsule
100 mg PO BID@0800,1600
phenobarbital 32.4 MG tablet
32.4 mg PO TID@0800,1200,1600
calcium carbonate-vitamin D3 [Oyster Shell Calcium-Vit D3] 500 mg-5 mcg (200 unit) Tablet
1 tab PO BID@0800,1600
polyethylene glycol 3350 17 GRAMS powder in packet
17 grams PO DAILY
simvastatin 10 mg Tablet
10 mg PO QPM
tamsulosin 0.4 mg Capsule
0.4 mg PO DAILY
escitalopram oxalate 10 mg Tablet
10 mg PO DAILY
Rx Instructions:
take w/ 5 mg for total dose 15 mg
escitalopram oxalate 5 mg Tablet
5 mg PO DAILY
Rx Instructions:
take w/ 10 mg for total dose 15 mg
acetaminophen 325 mg Tablet
650 mg PO Q4HPRN PRN (Reason: mild pain/fever)
nystatin 100,000 unit/gram ointment
1 applic TOPICAL BIDPRN PRN (Reason: rash)
guaifenesin 100 mg/5 mL Liquid
100 - 200 mg PO Q4HPRN PRN (Reason: cough)
Citrucel 500 mg Tablet
1,000 mg PO BID@0800,1600
bethanechol chloride 25 mg tablet
25 mg PO BID
pantoprazole [Protonix] 40 mg tablet,delayed release (DR/EC)
40 mg PO DAILY Qty: 30 0RF
spironolactone 25 mg Tablet
12.5 mg PO DAILY Qty: 30 0RF
potassium chloride 10 mEq Tablet Extended Release
10 meq PO DAILY
ferrous sulfate 325 mg (65 mg iron) Tablet
325 mg PO DAILY
Stomach Relief 525 mg/15 mL Suspension
525 mg PO TIDPRN PRN (Reason: nausea/diarrhea)
Refresh Optive 0.5-0.9 % Drops
1 drp BOTH EYES DAILYPRN PRN (Reason: dry eyes)
metoprolol succinate 25 mg Tablet Extended Release 24 Hr
12.5 mg PO DAILY Qty: 30 0RF
Eliquis 5 mg tablet
5 mg PO BID Qty: 60 0RF
furosemide 40 mg Tablet
40 mg PO BID@0800,1600 Qty: 60 0RF
Discontinued
chlorhexidine gluconate 15 ML mouthwash
15 ml mucous membrane BID
Discharge Orders:
Discharge Patient (As Directed); Ordered 08/10/24
Ordered By: Nicholas Jones
Discharge Date and Time
Print Language: TURKMEN
[2024-08-10] MEDS: LIPITOR 10 MG PO (17:20)
[2024-08-10 23:46] VITALS: BP 121/68
[2024-08-11 05:15] VITALS: BMI 26.8
[2024-08-11 07:08] VITALS: BP 125/82
[2024-08-11] MEDS: TOPROL XL 12.5 MG PO (07:59)
[2024-08-11] MEDS: LEXAPRO 5 MG PO (07:59)
[2024-08-11] MEDS: FEOSOL 325 MG PO (07:59)
[2024-08-11] MEDS: KCL 10 MEQ PO (07:59)
[2024-08-11] MEDS: ELIQUIS 5 MG PO ×2 (07:59→19:42)
[2024-08-11] MEDS: OMNICEF 300 MG PO (08:00)
[2024-08-11] MEDS: FLOMAX 0.4 MG PO (08:00)
[2024-08-11] MEDS: ZITHROMAX 500 MG PO (08:00)
[2024-08-11] MEDS: COLACE 100 MG PO ×2 (08:00→16:15)
[2024-08-11] MEDS: ALDACTONE 12.5 MG PO (08:00)
[2024-08-11] MEDS: LEXAPRO 10 MG PO (08:01)
[2024-08-11] MEDS: KLONOPIN 0.5 MG PO ×2 (08:01→19:42)
[2024-08-11] MEDS: MIRALAX 17 GRAMS PO (08:01)
[2024-08-11] MEDS: LUMINAL 32.4 MG PO ×3 (08:01→16:15)
[2024-08-11] MEDS: PROTONIX 40 MG PO (08:01)
[2024-08-11] MEDS: LASIX 40 MG PO (08:01)
[2024-08-11] MEDS: URECHOLINE 25 MG PO ×2 (08:01→19:42)
[2024-08-11] MEDS: OSCAL 500 + D 500 MG PO ×2 (08:01→16:15)
--- NOTE | 2024-08-11 12:29 | PTCARENOTE ---
Caregiver at bedside for assistance with discharge, informed this RN that pt abdomen appears rounder and more full. Caregiver requested CXR. made aware, new order provided, see MAR.
[2024-08-11 12:46] VITALS: BMI 27.6
[2024-08-11] MEDS: ProAmatine 5 MG PO ×2 (12:52→17:42)
--- NOTE | 2024-08-11 14:48 | W.PN.HOSP.TC ---
Today's Communication/Plan
-
Hold DC
CXR
Switch to IV lasix
Assessment / Plan
Assessment / Plan
P
A/P:
Acute on chronic diastolic congestive heart failure:
According to his regular RN weight is significantly high. He is comfortable at rest. Not hypoxic. Will repeat a chest x-ray and switch Lasix to IV.
Continue GDMT beta-blockers, metoprolol succinate 12.5 mg p.o. daily at MRA spironolactone 12.5 mg p.o. daily
Cardiology consult appreciated
PT recommends no need
OT recommends senior living assist/assisted living
Bilateral pleural effusions right > left:
Monitor with diuresis
Bilateral lower lobe consolidation right more than left-clinically suspicious more for bilateral compressive atelectasis from pleural effusions than pneumonia. Patient was afebrile on admission and white count was normal landing including normal
procalcitonin. Patient nontoxic without any audible cough.
Would favor holding antibiotics.
Paroxysmal atrial fibrillation:
Continue rate control beta-jason
Continue anticoagulation Eliquis
Seizure disorder:
Continue AED
Asperger syndrome/developmental delay:
Continue support
DVT prophylaxis:
Eliquis
CODE STATUS:
Full code
DW Pts outpt RN
Anticipated Discharge: > 48 hours
Subjective/Interval History
-
Date of Service: August 11, 2024
Patient regular nurse was visiting today. She finds him still significant fluid overload with lower extremity edema. His baseline weight apparently is 141 pounds and today it is 156 pounds.
Patient with developmental delay and poor historian. Denies any shortness of breath at rest.
Objective Data
-
Vital Signs:
Vital Signs
Temp Pulse Resp BP Pulse Ox
98.2 F 70 17 128/100 99
08/11/24 07:08 08/11/24 12:52 03/18/25 07:08 08/11/24 12:52 08/11/24 07:08
I&O
08/10/24 08/11/24 08/12/24
06:59 06:59 06:59
Intake Total 720 / 720 1170 / 1170
Output Total 1950 / 1950 1150 / 1150
Balance -1230 / -1230
Review of Systems
-
Unable to obtain full review of systems at this time due to: Other (Cognitive impairment)
Physical Exam
-
General: Comfortable
Respiratory: Non Labored Respirations and Decreased Breath Sounds (Right lower zone); Negative Crackles or Accessory Resp Muscle Use
Cardiac: Regular Rhythm and S1/S2
GI: Soft
Musculoskeletal: Edema, Right Lower Extrem and Edema, Left Lower Extrem
Neuro: Awake, Alert and Oriented (self)
Psych: Calm and Confused
[2024-08-11 15:13] VITALS: BP 112/72
--- NOTE | 2024-08-11 16:12 | CM ---
Spoke with RN who stated that staff was in to see patient today from his [facility] and expressed concern over edema, weight gain, and swollen stomach. They stated that if patient is discharged, they will return him to the ED as he is not baseline
that weight.
Concerns expressed to attending.
Plan: Case management will continue to follow and assist with discharge planning. Will f/u with fpc.
[2024-08-11] MEDS: LASIX 40 MG IV (16:44)
[2024-08-11] MEDS: LIPITOR 10 MG PO (17:42)
[2024-08-11 23:57] VITALS: BP 109/55
--- NOTE | 2024-08-12 04:51 | DOWNTIME ---
There was a [employer] Client Nursing Project Coordinator Downtime on 08/12/2024 from 0100 to 08/13/2023 at 0420 . Downtime documentation of patient's care, including medication administrations, has been reconciled in the electronic record per guidelines. Refer to the
patient's paper chart under the miscellaneous tab to see printed paper medication records and downtime forms.
[2024-08-12 06:00] VITALS: BMI 28.1
[2024-08-12 07:19] VITALS: BP 106/78
[2024-08-12] MEDS: ELIQUIS 5 MG PO ×2 (07:51→20:09)
[2024-08-12] MEDS: COLACE 100 MG PO ×2 (07:51→16:59)
[2024-08-12] MEDS: ProAmatine 5 MG PO ×3 (07:51→17:19)
[2024-08-12] MEDS: PROTONIX 40 MG PO (07:51)
[2024-08-12] MEDS: ALDACTONE 12.5 MG PO (07:51)
[2024-08-12] MEDS: KCL 10 MEQ PO (07:51)
[2024-08-12] MEDS: TOPROL XL 12.5 MG PO (07:52)
[2024-08-12] MEDS: LEXAPRO 10 MG PO (07:52)
[2024-08-12] MEDS: LEXAPRO 5 MG PO (07:52)
[2024-08-12] MEDS: FEOSOL 325 MG PO (07:52)
[2024-08-12] MEDS: KLONOPIN 0.5 MG PO ×2 (07:52→20:09)
[2024-08-12] MEDS: MIRALAX 17 GRAMS PO (07:52)
[2024-08-12] MEDS: URECHOLINE 25 MG PO ×2 (07:52→20:10)
[2024-08-12] MEDS: OSCAL 500 + D 500 MG PO ×2 (07:52→16:59)
[2024-08-12] MEDS: LASIX 40 MG IV ×2 (07:52→17:00)
[2024-08-12] MEDS: LUMINAL 32.4 MG PO ×3 (07:52→16:59)
[2024-08-12] MEDS: FLOMAX 0.4 MG PO (07:52)
[2024-08-12 07:59] LABS: Blood Urea Nitrogen 26 mg/dl (9-20); Calcium 8.4 mg/dl (8.4-10.2); Carbon Dioxide 28 mmol/L (22-30); Chloride 102 mmol/L (98-107); Estimated Creatinine Clearance 67 ml/min; Glucose 67 mg/dl (70-99); Sodium 135 mmol/L (135-145); eGFR > 60.00
[2024-08-12 13:42] VITALS: BP 105/65
--- NOTE | 2024-08-12 14:21 | W.PN.HOSP.TC ---
Today's Communication/Plan
-
Continue with IV diuresis
IR consult for right thoracentesis
Assessment / Plan
Assessment / Plan
P
A/P:
Acute on chronic diastolic congestive heart failure:
According to his regular RN weight is significantly high -baseline 141lbs but today 158lbs. He is comfortable at rest. Not hypoxic. cw IV Lasix .
Continue GDMT beta-blockers, metoprolol succinate 12.5 mg p.o. daily at M[facility] spironolactone 12.5 mg p.o. daily
Cardiology consult appreciated
PT recommends no need
OT recommends residential assist/assisted living
Bilateral pleural effusions right > left:
Repeat chest x-ray shows persistent right moderate pleural effusion. Will obtain therapeutic right thoracentesis. He had 1 in May this year.
Bilateral lower lobe consolidation right more than left-clinically suspicious more for bilateral compressive atelectasis from pleural effusions than pneumonia. Patient was afebrile on admission and white count was normal landing including normal
procalcitonin. Patient nontoxic without any audible cough.
Would favor holding antibiotics.
Paroxysmal atrial fibrillation:
Continue rate control beta-jason
Continue anticoagulation Eliquis
Seizure disorder:
Continue AED
Asperger syndrome/developmental delay:
Continue support
DVT prophylaxis:
Eliquis
CODE STATUS:
Full code
DW RN
DW IR
Total time spent on today's encounter was 52 minutes which included time spent in counseling the patient/family regarding diagnosis and treatment plan as listed above, goals of care, and symptom management. Case was discussed with nursing staff,
specialists, and care coordinators/case management. All labs and imaging personally reviewed by me. Remainder the time spent in detailed review of previous records, lab data, imaging, and other medical provider documentation.
Anticipated Discharge: 24 - 48 hours
Subjective/Interval History
-
Date of Service: August 12, 2024
Comfortable at rest. Cognitively impaired due to developmental delay. Denies any shortness of breath. Remains off of oxygen.
Objective Data
-
Labs:
Laboratory Results
08/12/24
06:37
Sodium 135
Potassium 4.0
Chloride 102
Carbon Dioxide 28
BUN 26 H
Creatinine 0.8
Glucose 67 L
Calcium 8.4
Vital Signs:
Vital Signs
Temp Pulse Resp BP Pulse Ox
98.0 F 68 17 105/65 96
08/12/24 07:19 08/12/24 13:42 08/12/24 07:19 08/12/24 13:43 08/12/24 07:19
I&O
08/11/24 08/12/24 08/13/24
06:59 06:59 06:59
Intake Total 1170 / 1170 960 / 960
Output Total 1150 / 1150 2800 / 2800 900 / 900
Balance -1840 / -1840 -900 / -900
Review of Systems
-
Unable to obtain full review of systems at this time due to: Other (cognitive impairment)
Cardiac: Denies Chest Pain
Abdomen/GI: Denies Abdominal Pain, Nausea or Vomiting
Physical Exam
-
General: Comfortable
Respiratory: Non Labored Respirations and Decreased Breath Sounds (rt lower zone); Negative Accessory Resp Muscle Use
Cardiac: Regular Rhythm and S1/S2; Negative Tachycardic
GI: Soft
Musculoskeletal: Edema, Right Lower Extrem and Edema, Left Lower Extrem
Neuro: Awake, Alert and Oriented (self only)
Psych: Calm and Confused; Negative Agitated
Data Reviewed
-
Diagnostic Radiology: Report Reviewed by me (CXR)
[2024-08-12 14:31] LABS: LDH 269 U/L (120-246); Total Protein 5.3 g/dl (6.3-8.2)
[2024-08-12 15:20] VITALS: BP 98/63
--- NOTE | 2024-08-12 15:32 | W.PN.CARDCBS ---
Addendum entered and electronically signed by Robe Romero MD 08/12/24 16:37:
I saw and examined the patient.
The Resource Room Special Education Teacher's note was reviewed and I agree with the note.
Comment: Briefly, 74-year-old man past medical history of heart failure with preserved ejection fraction and Asperger/developmental delay who presents in acute decompensated heart failure. Cardiology was asked to reevaluate the patient given weight
gain and worsening edema on exam.
Resting comfortably in bed today following thoracentesis
Weight is up compared to prior and patient with mild lower extremity edema on exam
Agree with resuming IV Lasix BID
Will likely need higher dose of oral diuretics on discharge, tentatively 80 p.o. twice daily
Ideally would have standing weights
Follow creatinine/K�suspect he will need supplemental potassium with more aggressive diuresis
Started on midodrine for hypotension
Would recommend discontinuing spironolactone given marginal blood pressure
Wean midodrine as able
Continue metoprolol and Eliquis for history of atrial fibrillation
Rest per Sofia Agrawal
Original Note:
Today's Communication / Plan
-
IV lasix
s/p R thoracentesis
follow BPs. hold aldactone. wean midodrine
Impression / Plan
-
PCP: JUDY Gupta
Men'S Designer: Dr. Lisa
Impression:
Presented with weight gain, SOB and diagnosed with acute on chronic HFpEF
Recurrent pleural effusions
s/p R Thoracentesis 05/25/2024, 05/29/2023, 08/12/24
s/p L thoracentesis 04/19/2023
h/o pericardial effusion
pericardiocentesis with 365 ml bloody effusion removed 06/11/22
pathology negative for malignant cells
Asperger syndrome/developmental delay
History of PET GROOMER shunt
Hyperlipidemia
BPH status post TURP
Seizure history
Essential tremor
Recurrent UTI
Laparoscopic cholecystectomy with ventral hernia repair
Scoliosis
Echo 06/09/22: EF 50-55% with pulmonary artery pressure 30 to 35 mmHg, at least moderate pericardial effusion
Echo 06/11/22: Moderate pericardial effusion with resolution of pericardial effusion after the completion of the procedure.
Echo 07/2022: EF 50-55% with mild MR and TR and no pericardial or pleural effusions.
Echo 04/19/2023: EF 55-60%, mild to moderate MR, mildly dilated left atrium
Echo 04/03/2024: EF 55 to 60%, mild to moderate MR, mild to moderate TR, mobile echodensity in right atrium consistent with prominent Chiari network
Echo 05/29/24: EF 55 to 60%, dilated bilateral atria, trivial pericardial effusion, pleural effusion present, no significant change compared to prior
Echo 06/24/24: EF 55 to 60%, trivial pericardial effusion, pleural effusion present
Plan:
-he was diuresed this admission however with transition back to po lasix 40mg BID was noted to have weight gain and CXR 08/12 with mod R and small L pleural effusions. He underwent R thoracentesis 08/12 for 1300cc.
-back on IV lasix 60mg BID as of 08/11 PM dose. dry weight felt to be ~140 pounds.
-was started on midodrine 5mg TID as of 08/11. follow BPs with diuresis, hold OP aldactone for now, and wean midodrine as able.
-suspect patient needs more than 40mg po lasix BID when transitioned to oral.
-continue toprol, eliquis for history of PAF. not presently on telemetry
-patient remains a full code
-he lives in a long-term. of note, reportedly family feels as though patient is consentable however unclear if this is the case. unclear who has POA for patient. CM to follow.
-d/w nursing
HPI: Dave is a 74 year old male with PMH of chronic HFpEF, pleural effusions, pericardial effusion, Asperger syndrome/developmental delay, HLD, seizures, tremor, recurrent UTI, and scoliosis. He was seen in [facility] office yesterday 08/06 and weight was
noted to be up to 151lbs as he had not been receiving his lasix due to hypotension. He was sent for urgent chest xray which showed possible pneumonia w/ moderate pleural effusions. He was sent to ER for further evaluation and was admitted with
pneumonia and acute heart failure exacerbation. Cardiology consulted for evaluation. Weight remains stable overnight, but he has no complaints this AM.��������
Progress Note - Men'S Designer
Subjective
Date of Service: August 12, 2024
no complaints. s/ p R thoracentesis
Objective
Labs:
08/08/24 08:16
08/12/24 06:37
Labs
Hgb 16.0 g/dL (13.0-18.0) 08/08/24 08:16
Hct 46.8 % (39.0-52.0) 08/08/24 08:16
Plt Count 10^3/uL (130-400) 08/08/24 08:16
Sodium 135 mmol/L (135-145) 08/12/24 06:37
Potassium 4.0 mmol/L (3.5-5.1) 08/12/24 06:37
BUN 26 mg/dl (9-20) H 08/12/24 06:37
Creatinine 0.8 mg/dL (0.7-1.3) 08/12/24 06:37
Glucose 67 mg/dl (70-99) L 08/12/24 06:37
Vital Signs and I&O:
Vital Signs
Temp Pulse Resp BP Pulse Ox
98.1 F 74 17 98/63 97
08/12/24 15:20 08/12/24 15:20 08/12/24 15:20 08/12/24 15:20 08/12/24 15:20
Vital Signs
Temp Pulse Resp BP Pulse Ox
98.1 F 74 17 98/63 97
08/12/24 15:20 08/12/24 15:20 08/12/24 15:20 08/12/24 15:20 08/12/24 15:20
Intake & Output
08/10/24 08/11/24 08/12/24 08/13/24
07:59 07:59 07:59 07:59
Intake Total 720 / 720 1170 / 1170 960 / 960
Output Total 1950 / 1950 1150 / 1150 2800 / 2800 900 / 900
Balance -1230 / -1230 -1840 / -1840 -900 / -900
Physical Exam
Physical Exam
GEN: No distress, awake, alert, oriented to self
HEENT: supple, anicteric, mmm, eomi
LUNGS: Decreased B/L bases, no wheezes
CV: Reg, S1/S2, no murmur
ABD: soft, BS+, NT/ND
EXT: No cyanosis, clubbing. 1+ edema of B/L LE
NEURO: Gross non-focal
SKIN: Warm, pink, dry. No rash
--- NOTE | 2024-08-12 16:25 | W.PN.UPDATE ---
Update Note
Progress Note Update
CXR post right thoracentesis shows small right pneumothorax. Some visible pleural thickening with somewhat nodular appearance at right lower lung, most likely trapped lung/ex vacuo pneumothorax. Will obtain repeat CXR this evening.
[2024-08-12 16:29] VITALS: BP 102/68; PULSE 71; O2SAT 99
[2024-08-12 16:36] LABS: Body Fluid pH 7.48
[2024-08-12 16:49] LABS: Body Fluid LDH < 90 U/L; Body Fluid Protein < 2.0 g/dl
[2024-08-12] MEDS: LIPITOR 10 MG PO (16:59)
--- NOTE | 2024-08-12 19:22 | W.PN.UPDATE ---
Update Note
Progress Note Update
Repeat CXR shows right hydropneumothorax, ptx slightly larger than prior. Remains most likely trapped lung, would place chest tube only if develops associated sxs or changes in VS. Will repeat CXR in AM.
[2024-08-12 23:30] VITALS: BP 106/56
[2024-08-13 06:13] VITALS: BMI 25.5
[2024-08-13 07:26] VITALS: BP 95/62
[2024-08-13 07:48] LABS: Blood Urea Nitrogen 30 mg/dl (9-20); Calcium 8.7 mg/dl (8.4-10.2); Carbon Dioxide 29 mmol/L (22-30); Chloride 99 mmol/L (98-107); Estimated Creatinine Clearance 60 ml/min; Glucose 71 mg/dl (70-99); Potassium 3.9 mmol/L (3.5-5.1); Sodium 136 mmol/L (135-145); eGFR > 60.00
--- NOTE | 2024-08-13 08:24 | W.PN.CARDCBS ---
Today's Communication / Plan
-
Continue IV furosemide
Management of pneumothorax per IR
Continue to hold spironolactone for now, consider restart
Increase midodrine
[facility] SGLT2 antagonist
Impression / Plan
-
PCP: JUDY Gupta
Second Hand Paper Machine: Dr. Lisa
Impression:
Presented with weight gain, SOB and diagnosed with acute on chronic HFpEF
Recurrent pleural effusions
s/p R Thoracentesis 05/25/2024, 05/29/2023, 08/12/24
s/p L thoracentesis 04/19/2023
h/o pericardial effusion
pericardiocentesis with 365 ml bloody effusion removed 06/11/22
pathology negative for malignant cells
Asperger syndrome/developmental delay
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
Hyperlipidemia
BPH status post TURP
Seizure history
Essential tremor
Recurrent UTI
Laparoscopic cholecystectomy with ventral hernia repair
Scoliosis
Echo 06/09/22: EF 50-55% with pulmonary artery pressure 30 to 35 mmHg, at least moderate pericardial effusion
Echo 06/11/22: Moderate pericardial effusion with resolution of pericardial effusion after the completion of the procedure.
Echo 07/2022: EF 50-55% with mild MR and TR and no pericardial or pleural effusions.
Echo 04/19/2023: EF 55-60%, mild to moderate MR, mildly dilated left atrium
Echo 04/03/2024: EF 55 to 60%, mild to moderate MR, mild to moderate TR, mobile echodensity in right atrium consistent with prominent Chiari network
Echo 05/29/24: EF 55 to 60%, dilated bilateral atria, trivial pericardial effusion, pleural effusion present, no significant change compared to prior
Echo 06/24/24: EF 55 to 60%, trivial pericardial effusion, pleural effusion present
Plan:
He looks comfortable despite HFpEF and despite right pneumothorax.
Blood pressure remains relatively low, metoprolol is being given, spironolactone is on hold, he is still receiving furosemide 40 mg IV twice daily and by weight is diuresing nicely.
Would continue IV furosemide. Will increase midodrine to 10 mg 3 times daily.
I am not certain if we have previously considered SGLT2 antagonists, but if not we should probably add. Will ask case management to [facility]. Consider restart of spironolactone. If we can avoid rehospitalization that would be highly desirable.
Management of pneumothorax per hospitalist and interventional radiology
HPI: Dave is a 74 year old male with PMH of chronic HFpEF, pleural effusions, pericardial effusion, Asperger syndrome/developmental delay, HLD, seizures, tremor, recurrent UTI, and scoliosis. He was seen in [facility] office yesterday 08/06 and weight was
noted to be up to 151lbs as he had not been receiving his lasix due to hypotension. He was sent for urgent chest xray which showed possible pneumonia w/ moderate pleural effusions. He was sent to ER for further evaluation and was admitted with
pneumonia and acute heart failure exacerbation. Cardiology consulted for evaluation. Weight remains stable overnight, but he has no complaints this AM.��������
Progress Note - Second Hand Paper Machine
Subjective
Date of Service: August 13, 2024:
Medications: Apixaban 5 mg p.o. twice daily, Urecholine, calcium, Klonopin 0.5 twice daily, Colace 100 twice daily, Lexapro 10 mg a day, 5 in the PM, iron, metoprolol ER 12.5 daily, pantoprazole 40 mg a day, phenobarbital 3 times daily, MiraLAX,
atorvastatin 10 mg a day, tamsulosin 0.4 mg daily, midodrine 5 mg 3 times daily, furosemide 40 mg IV twice daily, potassium 20 meqs daily
95/62, pulse 72, resp rate 17, afebrile, O2 sats 96%, intake and output -1.6 L, weight is 65.4 kg, if accurate down 6.6 kg, no distress, excited about the traffic on [address], head neck exam unremarkable, prior scar on scalp, lungs are surprisingly clear
and not diminished right, JVD still slightly elevated, soft systolic murmur at apex, abdomen benign, small amount edema
Chest x-ray yesterday right pneumothorax left effusion status post thoracentesis yesterday
BUN/creatinine 30 and 0.9, potassium 3.9, fluid pH 7.48, protein and LDH both low
Objective
Labs:
08/08/24 08:16
08/13/24 06:24
Labs
Hgb 16.0 g/dL (13.0-18.0) 08/08/24 08:16
Hct 46.8 % (39.0-52.0) 08/08/24 08:16
Plt Count 10^3/uL (130-400) 08/08/24 08:16
Sodium 136 mmol/L (135-145) 08/13/24 06:24
Potassium 3.9 mmol/L (3.5-5.1) 08/13/24 06:24
BUN 30 mg/dl (9-20) H 08/13/24 06:24
Creatinine 0.9 mg/dL (0.7-1.3) 08/13/24 06:24
Glucose 71 mg/dl (70-99) 08/13/24 06:24
Vital Signs and I&O:
Vital Signs
Temp Pulse Resp BP Pulse Ox
36.6 C 72 17 95/62 96
08/13/24 07:26 08/13/24 07:26 08/13/24 07:26 08/13/24 07:26 08/13/24 07:26
Vital Signs
Temp Pulse Resp BP Pulse Ox
36.6 C 72 17 95/62 96
08/13/24 07:26 08/13/24 07:26 08/13/24 07:26 08/13/24 07:26 08/13/24 07:26
Intake & Output
08/11/24 08/12/24 08/13/24 08/14/24
07:59 07:59 07:59 07:59
Intake Total 1170 / 1170 960 / 960 240 / 240
Output Total 1150 / 1150 2800 / 2800 1900 / 1900
Balance -1840 / -1840 -1660 / -1659
Physical Exam
Physical Exam
See above
[2024-08-13] MEDS: LASIX 40 MG IV ×2 (09:19→15:23)
[2024-08-13] MEDS: KCL 20 MEQ PO (09:24)
[2024-08-13] MEDS: LEXAPRO 5 MG PO (09:24)
[2024-08-13] MEDS: ProAmatine 5 MG PO (09:24)
[2024-08-13] MEDS: TOPROL XL 12.5 MG PO (09:24)
[2024-08-13] MEDS: LUMINAL 32.4 MG PO ×3 (09:24→15:30)
[2024-08-13] MEDS: MIRALAX 17 GRAMS PO (09:24)
[2024-08-13] MEDS: PROTONIX 40 MG PO (09:24)
[2024-08-13] MEDS: URECHOLINE 25 MG PO ×2 (09:24→20:00)
[2024-08-13] MEDS: COLACE 100 MG PO ×2 (09:25→15:30)
[2024-08-13] MEDS: ELIQUIS 5 MG PO ×2 (09:25→20:00)
[2024-08-13] MEDS: FEOSOL 325 MG PO (09:25)
[2024-08-13] MEDS: LEXAPRO 10 MG PO (09:25)
[2024-08-13] MEDS: KLONOPIN 0.5 MG PO ×2 (09:25→20:00)
[2024-08-13] MEDS: OSCAL 500 + D 500 MG PO ×2 (09:25→15:30)
[2024-08-13] MEDS: FLOMAX 0.4 MG PO (09:25)
[2024-08-13] MEDS: FLUSH (NSS) 2 FLUSH IV ×2 (09:28→15:31)
--- NOTE | 2024-08-13 10:27 | W.PN.HOSP.TC ---
Today's Communication/Plan
-
Continue with IV diuresis
pneumothorax tx per IR
Assessment / Plan
Assessment / Plan
P
A/P:
Acute on chronic diastolic congestive heart failure:
According to his regular RN weight is significantly high -baseline 141lbs, yesterday was 158 and today is 144 pounds [bed scale]. Order is for standing scale. He is comfortable at rest. Not hypoxic. cw IV Lasix .
Continue GDMT beta-blockers, metoprolol succinate 12.5 mg p.o. daily at MRA spironolactone when okay from cardiology standpoint
Cardiology following
PT recommends no need
OT recommends detention assist/assisted living
Bilateral pleural effusions right > left:
Repeat chest x-ray shows persistent right moderate pleural effusion. S/p right thoracentesis 08/12-transudative. He had 1 in May this year.
Right pneumothorax postthoracentesis-patient is comfortable and not hypoxic. Hemodynamically stable. Continue pneumothorax treatments per IR.
Bilateral lower lobe consolidation right more than left-clinically suspicious more for bilateral compressive atelectasis from pleural effusions than pneumonia. Patient was afebrile on admission and white count was normal landing including normal
procalcitonin. Patient nontoxic without any audible cough.
Would favor holding antibiotics.
Paroxysmal atrial fibrillation:
Continue rate control beta-jason
Continue anticoagulation Eliquis
Seizure disorder:
Continue AED
Asperger syndrome/developmental delay:
Continue support
DVT prophylaxis:
Eliquis
CODE STATUS:
Full code
DW IR
Total time spent on today's encounter was 52 minutes which included time spent in counseling the patient/family regarding diagnosis and treatment plan as listed above, goals of care, and symptom management. Case was discussed with nursing staff,
specialists, and care coordinators/case management. All labs and imaging personally reviewed by me. Remainder the time spent in detailed review of previous records, lab data, imaging, and other medical provider documentation.
Anticipated Discharge: > 48 hours
Subjective/Interval History
-
Date of Service: August 13, 2024
Sitting in his bed comfortable. Having his breakfast. No respiratory distress noted.
Denies any shortness of breath or chest pain.
Objective Data
-
Labs:
Laboratory Results
08/13/24
06:24
Sodium 136
Potassium 3.9
Chloride 99
Carbon Dioxide 29
BUN 30 H
Creatinine 0.9
Glucose 71
Calcium 8.7
Vital Signs:
Vital Signs
Temp Pulse Resp BP Pulse Ox
98 F 82 17 126/68 96
08/13/24 07:26 08/13/24 09:19 08/13/24 07:26 08/13/24 09:19 08/13/24 07:26
I&O
08/12/24 08/13/24 08/14/24
06:59 06:59 06:59
Intake Total 960 / 960 240 / 240
Output Total 2800 / 2800 1900 / 1900
Balance -1840 / -1840 -1660 / -1660
Review of Systems
-
Constitutional: Reports Other (Cognitively impaired)
Respiratory: Denies Cough or Trouble Breathing
Cardiac: Denies Chest Pain
Abdomen/GI: Denies Abdominal Pain, Nausea or Vomiting
Neuro: Denies Dizzy
Physical Exam
-
General: No Apparent Distress
HEENT: Moist Mucous Membranes
Respiratory: Crackles (Few crackles in the right base ); Negative Wheezes
Cardiac: Regular Rhythm and S1/S2
GI: Soft
Neuro: Awake and Alert
Psych: Calm
Data Reviewed
-
Diagnostic Radiology: Report Reviewed by me (Chest x-ray)
[2024-08-13] MEDS: ProAmatine 10 MG PO ×2 (12:48→17:44)
[2024-08-13 13:57] VITALS: BP 99/65
[2024-08-13 15:06] VITALS: BP 110/66
--- NOTE | 2024-08-13 17:15 | CM ---
Patient continuing on the diuretics. Will go back to senior living when medically stable.
Plan: Case management will continue to follow and assist with discharge planning. Back to senior living.
[2024-08-13] MEDS: LIPITOR 10 MG PO (17:47)
[2024-08-13 23:00] VITALS: BP 105/74
[2024-08-14 06:00] VITALS: BMI 25.1
[2024-08-14 07:05] VITALS: BP 106/71
[2024-08-14 07:14] LABS: Blood Urea Nitrogen 29 mg/dl (9-20); Calcium 8.6 mg/dl (8.4-10.2); Carbon Dioxide 32 mmol/L (22-30); Chloride 99 mmol/L (98-107); Estimated Creatinine Clearance 67 ml/min; Glucose 77 mg/dl (70-99); Potassium 3.7 mmol/L (3.5-5.1); Sodium 136 mmol/L (135-145); eGFR > 60.00
[2024-08-14] MEDS: MIRALAX 17 GRAMS PO (08:07)
[2024-08-14] MEDS: TOPROL XL 12.5 MG PO (08:07)
[2024-08-14] MEDS: LEXAPRO 5 MG PO (08:07)
[2024-08-14] MEDS: ProAmatine 10 MG PO ×3 (08:07→17:00)
[2024-08-14] MEDS: OSCAL 500 + D 500 MG PO ×2 (08:08→17:00)
[2024-08-14] MEDS: PROTONIX 40 MG PO (08:08)
[2024-08-14] MEDS: KLONOPIN 0.5 MG PO ×2 (08:12→20:13)
[2024-08-14] MEDS: KCL 20 MEQ PO (08:12)
[2024-08-14] MEDS: LEXAPRO 10 MG PO (08:12)
[2024-08-14] MEDS: COLACE 100 MG PO ×2 (08:12→16:59)
[2024-08-14] MEDS: LUMINAL 32.4 MG PO ×3 (08:12→17:00)
[2024-08-14] MEDS: FLOMAX 0.4 MG PO (08:12)
[2024-08-14] MEDS: LASIX 40 MG IV (08:12)
[2024-08-14] MEDS: URECHOLINE 25 MG PO ×2 (08:12→20:13)
[2024-08-14] MEDS: FEOSOL 325 MG PO (08:12)
[2024-08-14] MEDS: ELIQUIS 5 MG PO ×2 (08:13→20:13)
--- NOTE | 2024-08-14 11:49 | W.PN.HOSP.TC ---
Today's Communication/Plan
-
Follow up CXR today
CW diuresis per cards
Assessment / Plan
Assessment / Plan
P
A/P:
Acute on chronic diastolic congestive heart failure:
According to his regular RN weight is significantly high -baseline 141lbs, yesterday was 158 and today is 144 pounds [bed scale]. Standing scale wt today 141 lbs which is his baseline. He is comfortable at rest. Not hypoxic. cw IV Lasix per
cards.
Continue GDMT beta-blockers, metoprolol succinate 12.5 mg p.o. daily at MRA spironolactone when okay from cardiology standpoint
Cardiology following
PT recommends no need
OT recommends prison assist/assisted living
Bilateral pleural effusions right > left:
Repeat chest x-ray shows persistent right moderate pleural effusion. S/p right thoracentesis 08/12-transudative. He had 1 in May this year.
Right pneumothorax postthoracentesis-patient is comfortable and not hypoxic. Hemodynamically stable. Continue pneumothorax treatments per IR. Repeat CXR today.
Bilateral lower lobe consolidation right more than left-clinically suspicious more for bilateral compressive atelectasis from pleural effusions than pneumonia. Patient was afebrile on admission and white count was normal landing including normal
procalcitonin. Patient nontoxic without any audible cough.
Would favor holding antibiotics.
Paroxysmal atrial fibrillation:
Continue rate control beta-jason
Continue anticoagulation Eliquis
Seizure disorder:
Continue AED
Asperger syndrome/developmental delay:
Continue support
DVT prophylaxis:
Eliquis
CODE STATUS:
Full code
Anticipated Discharge: 24 - 48 hours
Subjective/Interval History
-
Date of Service: August 14, 2024
Denies shortness of breath. Remains off of oxygen.
Objective Data
-
Labs:
Laboratory Results
08/14/24
06:11
Sodium 136
Potassium 3.7
Chloride 99
Carbon Dioxide 32 H
BUN 29 H
Creatinine 0.8
Glucose 77
Calcium 8.6
Vital Signs:
Vital Signs
Temp Pulse Resp BP Pulse Ox
97.8 F 67 16 106/71 96
08/14/24 07:05 08/14/24 07:05 08/14/24 07:05 08/14/24 07:05 08/14/24 07:05
I&O
08/13/24 08/14/24 08/15/24
06:59 06:59 06:59
Intake Total 240 / 240 1560 / 1560
Output Total 1900 / 1900 1250 / 1250
Balance -1660 / -1660 310 / 310
Review of Systems
-
Unable to obtain full review of systems at this time due to: Other (Cognitive impairment)
Constitutional: Denies Fever
Respiratory: Denies Trouble Breathing
Cardiac: Denies Chest Pain
Abdomen/GI: Denies Abdominal Pain, Nausea or Vomiting
Neuro: Denies Dizzy
Physical Exam
-
General: No Apparent Distress
HEENT: Moist Mucous Membranes
Respiratory: Crackles (few in right base) and Non Labored Respirations; Negative Accessory Resp Muscle Use
Cardiac: Regular Rhythm and S1/S2
Neuro: Awake, Alert and Oriented (self and person)
Data Reviewed
-
Labs: Labs Reviewed by me
--- NOTE | 2024-08-14 12:49 | W.PN.CARDCBS ---
Today's Communication / Plan
-
Changed to p.o. Lasix
Macias Jardiance or Farxiga and add if affordable
Sign off
Impression / Plan
-
PCP: JUDY Gupta
Blast Furnace Operator: Dr. Lisa
Impression:
Presented with weight gain, SOB and diagnosed with acute on chronic HFpEF
Recurrent pleural effusions
s/p R Thoracentesis 05/25/2024, 05/29/2023, 08/12/24
s/p L thoracentesis 04/19/2023
h/o pericardial effusion
pericardiocentesis with 365 ml bloody effusion removed 06/11/22
pathology negative for malignant cells
Asperger syndrome/developmental delay
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
Hyperlipidemia
BPH status post TURP
Seizure history
Essential tremor
Recurrent UTI
Laparoscopic cholecystectomy with ventral hernia repair
Scoliosis
Echo 06/09/22: EF 50-55% with pulmonary artery pressure 30 to 35 mmHg, at least moderate pericardial effusion
Echo 06/11/22: Moderate pericardial effusion with resolution of pericardial effusion after the completion of the procedure.
Echo 07/2022: EF 50-55% with mild MR and TR and no pericardial or pleural effusions.
Echo 04/19/2023: EF 55-60%, mild to moderate MR, mildly dilated left atrium
Echo 04/03/2024: EF 55 to 60%, mild to moderate MR, mild to moderate TR, mobile echodensity in right atrium consistent with prominent Chiari network
Echo 05/29/24: EF 55 to 60%, dilated bilateral atria, trivial pericardial effusion, pleural effusion present, no significant change compared to prior
Echo 06/24/24: EF 55 to 60%, trivial pericardial effusion, pleural effusion present
Plan:
He appears comfortable on room air
Chest tube has been removed
Changed to oral Lasix 40 mg p.o. twice daily
Continue midodrine.
Continue to hold Aldactone with hypotension requiring midodrine
Will ask case management to macias Max or Miya and will consider adding.
Will sign off, call with questions
HPI: Dave is a 74 year old male with PMH of chronic HFpEF, pleural effusions, pericardial effusion, Asperger syndrome/developmental delay, HLD, seizures, tremor, recurrent UTI, and scoliosis. He was seen in [facility] office yesterday 08/06 and weight was
noted to be up to 151lbs as he had not been receiving his lasix due to hypotension. He was sent for urgent chest xray which showed possible pneumonia w/ moderate pleural effusions. He was sent to ER for further evaluation and was admitted with
pneumonia and acute heart failure exacerbation. Cardiology consulted for evaluation. Weight remains stable overnight, but he has no complaints this AM.��������
Progress Note - Blast Furnace Operator
Subjective
Date of Service: August 14, 2024
No complaints but appears confused
Objective
Labs:
08/08/24 08:16
08/14/24 06:11
Labs
Hgb 16.0 g/dL (13.0-18.0) 08/08/24 08:16
Hct 46.8 % (39.0-52.0) 08/08/24 08:16
Plt Count 10^3/uL (130-400) 08/08/24 08:16
Sodium 136 mmol/L (135-145) 08/14/24 06:11
Potassium 3.7 mmol/L (3.5-5.1) 08/14/24 06:11
BUN 29 mg/dl (9-20) H 08/14/24 06:11
Creatinine 0.8 mg/dL (0.7-1.3) 08/14/24 06:11
Glucose 77 mg/dl (70-99) 08/14/24 06:11
Vital Signs and I&O:
Vital Signs
Temp Pulse Resp BP Pulse Ox
97.8 F 67 16 106/71 96
08/14/24 07:05 03/21/25 07:05 08/14/24 07:05 08/14/24 07:05 08/14/24 07:05
Vital Signs
Temp Pulse Resp BP Pulse Ox
97.8 F 67 16 106/71 96
08/14/24 07:05 08/14/24 07:05 08/14/24 07:05 08/14/24 07:05 08/14/24 07:05
Intake & Output
08/12/24 08/13/24 08/14/24 08/15/24
06:59 06:59 06:59 06:59
Intake Total 960 / 960 240 / 240 1560 / 1560
Output Total 2800 / 2800 1900 / 1900 1250 / 1250
Balance -1840 / -1840 -1660 / -1660 310 / 310
Physical Exam
Physical Exam
General: Well developed, well nourished in NAD.
Neck: Supple, no JVD, HJR, carotids +2 B/L, no bruits bilaterally.
Heart: Non displaced PMI, RRR, no murmurs, No S3, S4, no rubs.
Lungs: Clear to auscultation bilaterally, no wheeze, rhonchi, rubs bilaterally,
normal expiratory phase.
Extremities: No clubbing, cyanosis or edema bilaterally.
Neuro: Grossly nonfocal, awake, alert and oriented x3.
[2024-08-14 15:31] VITALS: BP 115/66
[2024-08-14] MEDS: LIPITOR 10 MG PO (17:00)
[2024-08-14] MEDS: LASIX 40 MG PO (17:00)
[2024-08-14 23:00] VITALS: BP 104/64
[2024-08-15 05:23] VITALS: BMI 25.2
[2024-08-15 07:00] VITALS: BP 112/75
[2024-08-15 07:20] LABS: Blood Urea Nitrogen 31 mg/dl (9-20); Calcium 8.5 mg/dl (8.4-10.2); Carbon Dioxide 30 mmol/L (22-30); Chloride 101 mmol/L (98-107); Estimated Creatinine Clearance 67 ml/min; Glucose 68 mg/dl (70-99); Potassium 4.3 mmol/L (3.5-5.1); Sodium 135 mmol/L (135-145); eGFR > 60.00
--- NOTE | 2024-08-15 09:29 | CM ---
Addendum entered by GEORGIA Tristan 08/15/24 14:12:
Per assisted staff the nurse has to come to hospital to assess him saturday morning in order for them to agree to have him come back.
Original Note:
Cm received consult to check macias of Jardiance 10 mg daily and Farxiga 10 mg daily. CM called [employer] plan. COst for 30 or 90 day supply of both is $0.00 copay. SPoke to staffing assistant at [facility]. FOr terminal gauger medications they use [facility]
[place] but for new meds and short term script to be sent to [facility] On [address]. Plan to have new script sent to [facility] for 30 day supply and staffing assistant will get PCP to send 90 day script to [facility] [place].
Updated consult with macias check on Rx.
[2024-08-15] MEDS: LASIX 40 MG PO ×2 (09:39→18:42)
[2024-08-15] MEDS: KCL 20 MEQ PO (09:39)
[2024-08-15] MEDS: KLONOPIN 0.5 MG PO ×2 (09:39→19:52)
[2024-08-15] MEDS: FEOSOL 325 MG PO (09:39)
[2024-08-15] MEDS: FLOMAX 0.4 MG PO (09:39)
[2024-08-15] MEDS: ELIQUIS 5 MG PO ×2 (09:39→19:52)
[2024-08-15] MEDS: COLACE 100 MG PO ×2 (09:39→18:42)
[2024-08-15] MEDS: MIRALAX 17 GRAMS PO (09:40)
[2024-08-15] MEDS: LEXAPRO 10 MG PO (09:40)
[2024-08-15] MEDS: ProAmatine 10 MG PO ×3 (09:40→18:42)
[2024-08-15] MEDS: LUMINAL 32.4 MG PO ×3 (09:40→18:42)
[2024-08-15] MEDS: OSCAL 500 + D 500 MG PO ×2 (09:40→18:42)
[2024-08-15] MEDS: LEXAPRO 5 MG PO (09:40)
[2024-08-15] MEDS: URECHOLINE 25 MG PO ×2 (09:41→19:52)
[2024-08-15] MEDS: TOPROL XL 12.5 MG PO (09:41)
[2024-08-15] MEDS: PROTONIX 40 MG PO (09:41)
--- NOTE | 2024-08-15 09:56 | W.PN.HOSP.TC ---
Today's Communication/Plan
-
DC planning
Assessment / Plan
Assessment / Plan
P
A/P:
Acute on chronic diastolic congestive heart failure:
According to his regular RN weight is significantly high -baseline 141lbs, yesterday was 158 and today is 144 pounds [bed scale]. Standing scale wt today 142 lbs which is his baseline. He is comfortable at rest. Not hypoxic. cw diuretics per
cards.Will consider switch oral lasix
Continue GDMT beta-blockers, metoprolol succinate 12.5 mg p.o. daily at MRA spironolactone when okay from cardiology standpoint
Cardiology following
PT recommends no need
OT recommends long-term assist/assisted living
Bilateral pleural effusions right > left:
Repeat chest x-ray shows persistent right moderate pleural effusion. S/p right thoracentesis 08/12-transudative. He had 1 in May this year.
Right pneumothorax post thoracentesis-patient is comfortable and not hypoxic. Hemodynamically stable. Repeat CXR 08/14 shows persistent moderate right pneumothorax. Again patient is asymptomatic. Suspect pneumothorax ex vacuo. Will discuss
with IR regarding further follow-up.
Bilateral lower lobe consolidation right more than left-clinically suspicious more for bilateral compressive atelectasis from pleural effusions than pneumonia. Patient was afebrile on admission and white count was normal landing including normal
procalcitonin. Patient nontoxic without any audible cough.
Would favor holding antibiotics.
Paroxysmal atrial fibrillation:
Continue rate control beta-jason
Continue anticoagulation Eliquis
Seizure disorder:
Continue AED
Asperger syndrome/developmental delay:
Continue support
DVT prophylaxis:
Eliquis
CODE STATUS:
Full code
DC once ok from IR standpoint/PTX
Anticipated Discharge: Within 24 hours
Subjective/Interval History
-
Date of Service: August 15, 2024
Voicing no specific complaints.
Denies any shortness of breath or chest pain.
Pleasantly confused.
Objective Data
-
Labs:
Laboratory Results
08/15/24
06:07
Sodium 135
Potassium 4.3
Chloride 101
Carbon Dioxide 30
BUN 31 H
Creatinine 0.8
Glucose 68 L
Calcium 8.5
Vital Signs:
Vital Signs
Temp Pulse Resp BP Pulse Ox
98.4 F 77 17 112/75 98
08/15/24 07:00 08/15/24 07:00 08/15/24 07:00 08/15/24 07:00 08/15/24 07:00
I&O
08/14/24 08/15/24 08/16/24
06:59 06:59 06:59
Intake Total 1560 / 1560 1020 / 1020
Output Total 1250 / 1250 850 / 850
Balance 310 / 310 170 / 170
Review of Systems
-
Unable to obtain full review of systems at this time due to: Other (cognitive impairment)
Physical Exam
-
General: Comfortable
HEENT: Moist Mucous Membranes
Respiratory: Non Labored Respirations and Decreased Breath Sounds (slightly decreased on right side ); Negative Accessory Resp Muscle Use
Cardiac: Regular Rhythm and S1/S2
Neuro: Awake, Alert and Oriented (self)
Psych: Calm and Confused; Negative Agitated
Data Reviewed
-
Diagnostic Radiology: Report Reviewed by me (cxr 08/14)
[2024-08-15 16:41] VITALS: BP 108/63
[2024-08-15] MEDS: LIPITOR 10 MG PO (18:42)
[2024-08-15 23:00] VITALS: BP 102/62
[2024-08-16 05:01] VITALS: BMI 25.2
[2024-08-16 07:00] VITALS: BP 118/66
[2024-08-16] MEDS: MIRALAX 17 GRAMS PO (07:32)
[2024-08-16] MEDS: FEOSOL 325 MG PO (07:32)
[2024-08-16] MEDS: FLOMAX 0.4 MG PO (07:33)
[2024-08-16] MEDS: PROTONIX 40 MG PO (07:33)
[2024-08-16] MEDS: KLONOPIN 0.5 MG PO ×2 (07:33→20:05)
[2024-08-16] MEDS: OSCAL 500 + D 500 MG PO ×2 (07:33→16:20)
[2024-08-16] MEDS: LEXAPRO 10 MG PO (07:33)
[2024-08-16] MEDS: KCL 20 MEQ PO (07:35)
[2024-08-16] MEDS: TOPROL XL 12.5 MG PO (07:35)
[2024-08-16] MEDS: ProAmatine 10 MG PO ×3 (07:35→18:02)
[2024-08-16] MEDS: COLACE 100 MG PO ×2 (07:36→16:20)
[2024-08-16] MEDS: ELIQUIS 5 MG PO ×2 (07:36→20:05)
[2024-08-16] MEDS: LUMINAL 32.4 MG PO ×3 (07:36→16:19)
[2024-08-16] MEDS: URECHOLINE 25 MG PO ×2 (07:36→20:05)
[2024-08-16] MEDS: LASIX 40 MG PO ×2 (07:36→16:20)
[2024-08-16] MEDS: LEXAPRO 5 MG PO (07:36)
--- NOTE | 2024-08-16 12:53 | W.PN.HOSP.TC ---
Today's Communication/Plan
-
CT chest
DC planning
Assessment / Plan
Assessment / Plan
P
A/P:
Acute on chronic diastolic congestive heart failure:
According to his regular RN weight is significantly high -baseline 141lbs, yesterday was 158 and today is 144 pounds [bed scale]. Standing scale wt today 142 lbs which is his baseline. He is comfortable at rest. Not hypoxic. cw diuretics per
cards.Will consider switch oral lasix
Continue GDMT beta-blockers, metoprolol succinate 12.5 mg p.o. daily at MRA spironolactone when okay from cardiology standpoint
Cardiology following
PT recommends no need
OT recommends [facility] assist/assisted living
Bilateral pleural effusions right > left:
Repeat chest x-ray shows persistent right moderate pleural effusion. S/p right thoracentesis 08/12-transudative. He had 1 in May this year.
Right pneumothorax post thoracentesis-patient is comfortable and not hypoxic. Hemodynamically stable. Repeat CXR 08/14 shows persistent moderate right pneumothorax. Again patient is asymptomatic. Suspect pneumothorax ex vacuo. Discussed with
IR who recommends clinical follow-up and serial x-rays. Patient has transudative effusion. He has parenchymal opacification in the right lung base. Will obtain a CT of the chest to understand his parenchymal abnormality. Will consider pulmonary
eval depending on the CT result.
Bilateral lower lobe consolidation right more than left-clinically suspicious more for bilateral compressive atelectasis from pleural effusions than pneumonia. Patient was afebrile on admission and white count was normal landing including normal
procalcitonin. Patient nontoxic without any audible cough.
Would favor holding antibiotics.
Paroxysmal atrial fibrillation:
Continue rate control beta-jason
Continue anticoagulation Eliquis
Seizure disorder:
Continue AED
Asperger syndrome/developmental delay:
Continue support
DVT prophylaxis:
Eliquis
CODE STATUS:
Full code
Anticipated Discharge: Within 24 hours
Subjective/Interval History
-
Date of Service: August 16, 2024
Patient voices no specific complaints. In particular denies any shortness of breath or chest pain. No overnight events.
Objective Data
-
Vital Signs:
Vital Signs
Temp Pulse Resp BP Pulse Ox
97.5 F 78 18 118/66 96
08/16/24 07:00 08/16/24 07:35 08/16/24 07:00 08/16/24 07:35 08/16/24 07:00
I&O
08/15/24 08/16/24 08/17/24
06:59 06:59 06:59
Intake Total 1020 / 1020 1470 / 1470
Output Total 850 / 850
Balance 170 / 170 1470 / 1470
Review of Systems
-
Unable to obtain full review of systems at this time due to: Other (Cognitive impairment)
Physical Exam
-
General: Comfortable
Respiratory: Non Labored Respirations and Decreased Breath Sounds (Right base); Negative Accessory Resp Muscle Use
Cardiac: Regular Rhythm and S1/S2
Neuro: Awake, Alert and Oriented (Self)
Psych: Confused; Negative Agitated
[2024-08-16 15:00] VITALS: BP 119/72
[2024-08-16] MEDS: LIPITOR 10 MG PO (18:03)
[2024-08-16 23:35] VITALS: BP 104/67
[2024-08-17 06:00] VITALS: BMI 25.3
[2024-08-17 07:34] VITALS: BP 104/73
[2024-08-17] MEDS: MIRALAX 17 GRAMS PO (07:38)
[2024-08-17] MEDS: URECHOLINE 25 MG PO ×2 (07:39→20:32)
[2024-08-17] MEDS: TOPROL XL 12.5 MG PO (07:39)
[2024-08-17] MEDS: FLOMAX 0.4 MG PO (07:39)
[2024-08-17] MEDS: PROTONIX 40 MG PO (07:39)
[2024-08-17] MEDS: KCL 20 MEQ PO (07:39)
[2024-08-17] MEDS: ProAmatine 10 MG PO ×3 (07:39→18:32)
[2024-08-17] MEDS: ELIQUIS 5 MG PO ×2 (07:39→20:32)
[2024-08-17] MEDS: LASIX 40 MG PO ×2 (07:40→16:05)
[2024-08-17] MEDS: KLONOPIN 0.5 MG PO ×2 (07:40→20:32)
[2024-08-17] MEDS: FEOSOL 325 MG PO (07:40)
[2024-08-17] MEDS: LEXAPRO 10 MG PO (07:40)
[2024-08-17] MEDS: LEXAPRO 5 MG PO (07:40)
[2024-08-17] MEDS: COLACE 100 MG PO ×2 (07:41→16:05)
[2024-08-17] MEDS: LUMINAL 32.4 MG PO ×3 (07:41→16:05)
[2024-08-17] MEDS: OSCAL 500 + D 500 MG PO ×2 (07:41→16:05)
--- NOTE | 2024-08-17 09:10 | W.PN.HOSP.TC ---
Today's Communication/Plan
-
CT scan of the chest. Pulmonary eval.
Assessment / Plan
Assessment / Plan
Physical exam:
General: No Apparent Distress
HEENT: Normocephalic, Atraumatic and Moist Mucous Membranes
Respiratory: Clear to Auscultation; Negative Wheezes, Rales or Rhonchi
Cardiac: Regular Rhythm and S1/S2
GI: Soft, Nontender and Nondistended
Musculoskeletal: No Clubbing, No Cyanosis and No Edema
Neuro: Awake, Alert and no neurological deficit
Psych: Calm
A/P:
Acute on chronic diastolic congestive heart failure:
On oral diuretics today
Reviewed CT scan of the chest and likely trapped lung-we will get pulmonary input.
Discharge planning once cleared by pulmonary
Prior to today:
According to his regular RN weight is significantly high -baseline 141lbs, yesterday was 158 and today is 144 pounds [bed scale]. Standing scale wt today 142 lbs which is his baseline. He is comfortable at rest. Not hypoxic. cw diuretics per
cards.Will consider switch oral lasix
Continue GDMT beta-blockers, metoprolol succinate 12.5 mg p.o. daily at MRA spironolactone when okay from cardiology standpoint
Cardiology following
PT recommends no need
OT recommends long term assist/assisted living
Bilateral pleural effusions right > left:
Repeat chest x-ray shows persistent right moderate pleural effusion. S/p right thoracentesis 08/12-transudative. He had 1 in May this year.
Right pneumothorax post thoracentesis-patient is comfortable and not hypoxic. Hemodynamically stable. Repeat CXR 08/14 shows persistent moderate right pneumothorax. Again patient is asymptomatic. Suspect pneumothorax ex vacuo. Discussed with
IR who recommends clinical follow-up and serial x-rays. Patient has transudative effusion. He has parenchymal opacification in the right lung base. Will obtain a CT of the chest to understand his parenchymal abnormality. Will consider pulmonary
eval depending on the CT result.
Bilateral lower lobe consolidation right more than left-clinically suspicious more for bilateral compressive atelectasis from pleural effusions than pneumonia. Patient was afebrile on admission and white count was normal landing including normal
procalcitonin. Patient nontoxic without any audible cough.
Would favor holding antibiotics.
Paroxysmal atrial fibrillation:
Continue rate control beta-jason
Continue anticoagulation Eliquis
Seizure disorder:
Continue AED
Asperger syndrome/developmental delay:
Continue support
DVT prophylaxis:
Eliquis
CODE STATUS:
Full code
Anticipated Discharge: Within 24 hours
Subjective/Interval History
-
Date of Service: August 17, 2024
Patient denies chest pain or shortness of breath. On room air. Afebrile
Objective Data
-
Vital Signs:
Vital Signs
Temp Pulse Resp BP Pulse Ox
97.5 F 80 12 104/73 97
08/17/24 07:34 08/17/24 07:34 08/17/24 07:34 08/17/24 07:34 08/17/24 07:34
I&O
08/16/24 08/17/24 08/18/24
06:59 06:59 06:59
Intake Total 1470 / 1470 1440 / 1440
Balance 1470 / 1470 1440 / 1440
--- NOTE | 2024-08-17 13:32 | CON.PUL ---
Consultation
Consultation Request
Date/Time Consultation Requested: 08/17/2024
Date/Time Consultation Performed: 08/17/2024
Requesting Provider: Dr. Zee
Performing Provider: Dr. Jose Jensen
Reason for Consultation: Pleural effusion/possible trapped lung
Medical History
-
Chief Complaint: Shortness of breath
History of Present Illness:
74-year-old man with past medical history significant for heart failure with preserved ejection fraction, hyperlipidemia, BPH, seizures, essential tremor, recurrent pleural effusion and history of pericardial effusion who presented to [facility] emergency room for evaluation of possible pneumonia. Patient apparently had not chest x-ray the day of admission and he was told that he had possibly pneumonia. Patient denies any symptoms.
Does report some increased exertional symptoms.
Denies fevers, chills, hemoptysis, purulent sputum production, GI or symptoms.
Past Medical History
Past Medical History: Other (See assessment and plan)
Social History
Tobacco: Non-smoker
Alcohol: None
Drug: None
Personal: Single
Living: Alf
Family History
Family History: Reviewed & Not Pertinent
Allergies / Home Medications
Allergies
Allergy/AdvReac Type Severity Reaction Status Date / Time
No Known Allergies Allergy Verified 08/06/24 16:55
Home Medications
�Medication �Instructions �Recorded �Confirmed �Last Taken �Type
clonazepam 0.5 mg tablet 0.5 mg PO BID Mental Health/Anxiety 02/24/19 08/06/24 07/06/24 History
docusate sodium 100 mg capsule 100 mg PO BID@0800,1600 02/24/19 08/06/24 07/06/24 History
Constipation
phenobarbital 32.4 mg tablet 32.4 mg PO TID@0800,1200,1600 02/24/19 08/06/24 07/06/24 History
Seizures
calcium 500 mg (as 1 tab PO BID@0800,1600 Supplement 12/07/21 08/06/24 07/06/24 History
carbonate)-vitamin D3 5 mcg (200
unit) tablet (Oyster Shell
Calcium-Vitamin D3)
polyethylene glycol 3350 17 gram 17 grams PO DAILY Constipation 12/07/21 08/06/24 07/06/24 History
oral powder packet
escitalopram oxalate 10 mg tablet 10 mg PO DAILY Mental 02/13/22 08/06/24 07/06/24 History
Health/Anxiety
escitalopram oxalate 5 mg tablet 5 mg PO DAILY Mental Health/Anxiety 02/13/22 08/06/24 07/06/24 History
simvastatin 10 mg tablet 10 mg PO QPM High cholesterol 02/13/22 08/06/24 07/05/24 History
tamsulosin 0.4 mg capsule 0.4 mg PO DAILY Urinary issue 02/13/22 08/06/24 07/06/24 History
acetaminophen 325 mg tablet 650 mg PO Q4HPRN PRN mild 04/17/23 08/06/24 Unknown History
pain/fever
bethanechol chloride 25 mg tablet 25 mg PO BID Urinary Issue 04/17/23 08/06/24 07/06/24 History
guaifenesin 100 mg/5 mL oral liquid 100 - 200 mg PO Q4HPRN PRN cough 04/17/23 08/06/24 Unknown History
methylcellulose (laxative) 500 mg 1,000 mg PO BID@0800,1600 04/17/23 08/06/24 07/06/24 History
tablet (Citrucel) Constipation
nystatin 100,000 unit/gram topical 1 applic topical BIDPRN PRN rash 04/17/23 08/06/24 Unknown History
ointment
pantoprazole 40 mg tablet,delayed 40 mg PO DAILY GERD #30 tabs 04/21/23 08/06/24 07/06/24 Rx
release (Protonix)
spironolactone 25 mg tablet 12.5 mg (1/2 x 25 mg) PO DAILY #30 05/21/23 08/06/24 07/06/24 Rx
tabs
bismuth subsalicylate 525 mg/15 mL 525 mg PO TIDPRN PRN 05/28/24 08/06/24 Unknown History
oral suspension (Stomach Relief) nausea/diarrhea
carboxymethylcellulose 0.5 1 drp BOTH EYES DAILYPRN PRN dry 05/28/24 08/06/24 Unknown History
%-glycerin 0.9 % eye drops eyes
(Refresh Optive)
ferrous sulfate 325 mg (65 mg 325 mg PO DAILY Supplement 05/28/24 08/06/24 07/06/24 History
iron) tablet
potassium chloride 10 mEq 10 meq PO DAILY Supplement 05/28/24 08/06/24 07/06/24 History
tablet,extended release
apixaban 5 mg tablet (Eliquis) 5 mg PO BID #60 tabs 06/01/24 08/06/24 07/06/24 Rx
metoprolol succinate 25 mg 12.5 mg (1/2 x 25 mg) PO DAILY #30 06/01/24 08/06/24 07/06/24 Rx
tablet,extended release 24 hr tabs
furosemide 40 mg tablet 40 mg PO BID@0800,1600 #60 tabs 06/02/24 08/06/24 07/06/24 Rx
Review of Systems
-
History Source: Patient
All other systems: Negative unless noted
Vitals / Labs / Diagnostic Testing
Vital Signs
Temp Pulse Resp BP Pulse Ox
97.5 F 66 12 105/57 97
08/17/24 07:34 08/17/24 12:55 08/17/24 07:34 08/17/24 12:55 08/17/24 07:34
Lab Data
08/08/24 08:16
08/15/24 06:07
Microbiology
08/12/24 15:35 Pleural Fluid Body Fluid Culture - Final
NO GROWTH-FINAL REPORT
08/12/24 15:35 Pleural Fluid Gram Stain - Final
Diagnostic Testing:
Physical Exam
-
HEENT: Normocephalic
Cardiovascular: S1/S2
Respiratory: Clear and Non-Labored Respirations
GI: Soft and Non Distended
Neurology: Awake, Alert, No Motor Deficits and Other (Patient unable to provide history due to developmental delay.)
Skin: Warm
General: Comfortable
Assessment
-
74-year-old male with past medical history noted, initially admitted on 08/08/2024 for increased shortness of breath, abnormal chest x-ray with possible pneumonia, heart failure and pleural effusion. Initially diuresed. Antibiotics given. After a
few days it was felt that the patient did not have pneumonia. Antibiotics helped. Due to persistent right pleural effusion underwent thoracentesis-as part of evaluation underwent CT chest08/17/2024 and demonstrated right sided hydropneumothorax.
Small left pleural effusion. Right lung visceropleural appears thickened.
We were consulted for evaluation of this hydropneumothorax.
Hydropneumothorax on CAT scan 08/17/2024 post-thoracentesis.
Recurrent pleural effusions-initially admitted 08/08/2024
Initially diuresis and subsequently thoracentesis performed-pH 7.48/total protein less than 2/LDH less than 90-transudate.
Prior right thoracentesis 05/29/2024: Likely a transudate as well, negative triglycerides, negative amylase.
Right thoracentesis 05/25/2024
Acute on chronic heart failure with preserved ejection fraction.
Seen in the cardiology office and found to have increased weight-Lasix was held due to low blood pressures.
?Possible pneumonia versus atelectasis
Afebrile without leukocytosis-received short course of antibiotic
Conditions present prior admission:
Heart failure with preserved ejection fraction
ECHO (06/24/24): EF 55 to 60%, trivial pericardial effusion, pleural effusion present
Discharged from the hospital with acute exacerbation of heart failure 06/2024
Paroxysmal atrial fibrillation-on anticoagulation
Hyperlipidemia
BPH
Seizure disorder
Essential tremors
Recurrent pleural effusions
History of pericardial effusion-status post pericardiocentesis 365 mL pleural fluid removed 05/2022-negative for malignancy
Asperger syndrome/developmental delay
History of [employer] shunt
TURP
Cholecystectomy
Prior thoracentesis
Assessment and plan:
Right hydropneumothorax: Suspect pneumothorax ex vacuo with trapped lung physiology-visceral pleural is thickened. Chronic effusion is of unclear etiology.
At least 3 thoracentesis since April 2024.
Transudative.
Normal TSH in May
Slightly low albumin normal LFTs
No significant proteinuria on UA
-
Negative cultures and cytology.
-
Records reviewed and on prior imaging pleural effusion has been present since at least 2022.
Initial response to IV diuresis-there is component of heart failure contributing to recurrence but with trapped lung physiology likely this will continue to reaccumulate.
If he is asymptomatic this could be addressed in the outpatient setting. Currently he denies any symptoms, he states that he is mainly on a wheelchair. He would like to go home.
Unfortunately, he does not understand clinical situation due to underlying cognitive/developmental delay.
Chest x-ray since 08/12/2024 does not show expansion of pneumothorax.
-
If he is symptomatic despite diuresis-May need to consider CT surgery evaluation for VATS/pleurodesis and possibly a Pleurx catheter at the same time. Unlikely that this patient will qualify for any aggressive therapy.
Again, if patient is clinically improved this could be discussed in the outpatient setting. Goals of care also may be an option.
Repeated thoracentesis only if patient is symptomatic is a more conservative option.
-
Discussed above extensively with sister Diamond Palomino 08/17/2024-she agrees that this patient is not a candidate for intrapleural catheters or surgical interventions.
I did discuss with her if there is recurrent symptoms frequently with frequent thoracentesis and admissions to the hospital goals of care will need to be discussed-recommended palliative and possibly hospice if this occurs. Will be an ongoing
discussion if patient has recurrent admissions.
-
Okay to discharge.
Unlikely that this patient will be able to follow-up in the outpatient setting. [place] in the [place] and sisters are not local. Patient is unable to provide significant history.
[2024-08-17 14:33] VITALS: PULSE 63; O2SAT 100
--- NOTE | 2024-08-17 15:31 | CM ---
Placed a call to [facility] and spoke with an RN named Belem, who stated that she and staff will be out to see patient tomorrow, pick him up and transfer him home. She stated that she would like to have [facility] [phone] Will make
referral.
All scripts should be sent to [facility].
[phone]. # For report # [phone].
Belem stated that she will call CM in the morning to set up a time.
Plan: Case management will continue to follow and assist with discharge planning. Bck to [facility]term with [facility] and d/c bback
[2024-08-17 15:59] VITALS: BP 115/67
[2024-08-17] MEDS: LIPITOR 10 MG PO (18:32)
[2024-08-17 23:00] VITALS: BP 102/70
[2024-08-18 06:00] VITALS: BMI 25.8
[2024-08-18 06:47] LABS: Blood Urea Nitrogen 33 mg/dl (9-20); Calcium 9.4 mg/dl (8.4-10.2); Carbon Dioxide 28 mmol/L (22-30); Chloride 102 mmol/L (98-107); Estimated Creatinine Clearance 60 ml/min; Glucose 81 mg/dl (70-99); Potassium 4.6 mmol/L (3.5-5.1); Sodium 139 mmol/L (135-145); eGFR > 60.00
[2024-08-18 07:12] VITALS: BP 114/76
[2024-08-18] MEDS: ELIQUIS 5 MG PO (07:33)
[2024-08-18] MEDS: ProAmatine 10 MG PO ×2 (07:33→11:58)
[2024-08-18] MEDS: FLOMAX 0.4 MG PO (07:33)
[2024-08-18] MEDS: COLACE 100 MG PO (07:33)
[2024-08-18] MEDS: FEOSOL 325 MG PO (07:33)
[2024-08-18] MEDS: PROTONIX 40 MG PO (07:33)
[2024-08-18] MEDS: KCL 20 MEQ PO (07:33)
[2024-08-18] MEDS: LEXAPRO 10 MG PO (07:34)
[2024-08-18] MEDS: LASIX 40 MG PO (07:34)
[2024-08-18] MEDS: KLONOPIN 0.5 MG PO (07:34)
[2024-08-18] MEDS: MIRALAX 17 GRAMS PO (07:34)
[2024-08-18] MEDS: URECHOLINE 25 MG PO (07:34)
[2024-08-18] MEDS: LEXAPRO 5 MG PO (07:34)
[2024-08-18] MEDS: TOPROL XL 12.5 MG PO (07:34)
[2024-08-18] MEDS: LUMINAL 32.4 MG PO ×2 (07:35→11:58)
[2024-08-18] MEDS: OSCAL 500 + D 500 MG PO (07:35)
--- NOTE | 2024-08-18 08:52 | W.PN.HOSP.TC ---
Today's Communication/Plan
-
Discharge planning today
Assessment / Plan
Assessment / Plan
Physical exam:
General: No Apparent Distress
HEENT: Normocephalic, Atraumatic and Moist Mucous Membranes
Respiratory: Clear to Auscultation; Negative Wheezes, Rales or Rhonchi
Cardiac: Regular Rhythm and S1/S2
GI: Soft, Nontender and Nondistended
Musculoskeletal: No Clubbing, No Cyanosis and No Edema
Neuro: Awake, Alert and no neurological deficit. Cognitive deficits
Psych: Calm
A/P:
Acute on chronic diastolic congestive heart failure:
On oral diuretics today
Appreciate cardiology input
Cleared by cardiology for discharge
Medically ready and stable for discharge today.
Trapped lung with right hydropneumothorax post-thoracentesis:
Appreciated pulmonary input
No need for further intervention at the moment
Cleared by pulmonary for discharge
Bilateral pleural effusions right > left:
Status post thoracentesis and diuresis
Ruled out pneumonia.
Paroxysmal atrial fibrillation:
Continue rate control beta-jason
Continue anticoagulation Eliquis
Seizure disorder:
Continue AED
Asperger syndrome/developmental delay:
Continue support
DVT prophylaxis:
Eliquis
CODE STATUS:
Full code
Anticipated Discharge: Today
Subjective/Interval History
-
Date of Service: August 18, 2024
Patient denies shortness of breath. On room air. Afebrile
Objective Data
-
Labs:
Laboratory Results
08/18/24
06:03
Sodium 139
Potassium 4.6
Chloride 102
Carbon Dioxide 28
BUN 33 H
Creatinine 0.9
Glucose 81
Calcium 9.4
Vital Signs:
Vital Signs
Temp Pulse Resp BP Pulse Ox
98.5 F 73 16 114/76 95
08/18/24 07:12 08/18/24 07:12 08/18/24 07:12 08/18/24 07:12 08/18/24 07:15
I&O
08/17/24 08/18/24 08/19/24
06:59 06:59 06:59
Intake Total 1440 / 1440
Balance 1440 / 1440
--- NOTE | 2024-08-18 10:10 | CM ---
Addendum entered by GEORGIA Dykes 08/18/24 12:00:
Placed a call to Lou who stated that she will still be in to pick patient up. [employer] faxed summary and RN will give report. Report and fax in previous CM note.
Original Note:
Spoke with Shalini from friends and family. She stated that she has to have the discharge paperwork prior to her picking patient up. She stated that the latest she can get patient is 12. She also expressed concern that patient has gained 4 lbs
since yesterday. Will update attending.
Plan: Case management will continue to follow and assist with discharge planning. Home/back to longterm today.
--- NOTE | 2024-08-18 10:52 | W.DCSUMMARY ---
Discharge Summary
Discharge Data
Date of Admission: 08/10/24
Date of Discharge: 08/18/24
-
Pending Results: No
Hospital Course
Patient is 74 years old male with history of seizures, Asperger syndrome, BPH, hyperlipidemia, tremors, recurrent pleural effusions, presented to the hospital shortness of breath and weight gain. Patient was started on diuresis and antibiotics for
possible pneumonia. Cardiology consulted. Patient antibiotics subsequently discontinued due to low probability of pneumonia. He was continued on IV diuresis. He had a right thoracentesis and post-thoracentesis developed right hydropneumothorax.
CT scan of the chest performed. Pulmonary was consulted. It was felt that patient had a trapped lung. Patient has remained asymptomatic and pulse ox normal on room air and pulmonary notes feels that due to trapped lung physiology this will likely
reaccumulate but patient would not be a good candidate for any procedures in the future like Pleurx catheter or VATS or pleurodesis and if becomes symptomatic would recommend a more conservative approach or palliative care approach. In any event,
currently he is asymptomatic and he will be kept on oral diuretics and will follow-up with cardiology and primary care physician as outpatient. No other events were noticed throughout this hospital course. He will be discharged in stable condition
today.
Discharge duration: 35 minutes
Discharge Plan
-
Patient Disposition: Home (Routine Discharge)
Discharge Diagnosis/Procedures: Acute on chronic diastolic congestive heart failure decompensation. Right trapped lung with hydropneumothorax. Paroxysmal atrial fibrillation. History of Aspergen syndrome.
Diet: Low Cholesterol and 2 Gram Sodium
Activity: As tolerated
Driving Restrictions: No driving
Bathing Restrictions: None
Specialty Instructions: Weigh Daily- Call MD for wt gain/loss 3 lbs overnight/5 lbs in 1 week
Referrals:
Primary care, provider [Other] - in less than 1 week
Felicia Perez PA-C [Specified Professional Personl] - 08/31/24 2:40 pm (You have a cardiology follow-up appointment at the [place] office with Dr. Lisa's physician fitness assistant, Felicia. Please call with questions)
Prescriptions:
New
midodrine 5 mg Tablet
10 mg PO TID@0800,1300,1800 Qty: 90 0RF
Continued
clonazepam 0.5 MG tablet
0.5 mg PO BID
docusate sodium 100 MG capsule
100 mg PO BID@0800,1600
phenobarbital 32.4 MG tablet
32.4 mg PO TID@0800,1200,1600
calcium carbonate-vitamin D3 [Oyster Shell Calcium-Vit D3] 500 mg-5 mcg (200 unit) Tablet
1 tab PO BID@0800,1600
polyethylene glycol 3350 17 GRAMS powder in packet
17 grams PO DAILY
simvastatin 10 mg Tablet
10 mg PO QPM
tamsulosin 0.4 mg Capsule
0.4 mg PO DAILY
escitalopram oxalate 10 mg Tablet
10 mg PO DAILY
Rx Instructions:
take w/ 5 mg for total dose 15 mg
escitalopram oxalate 5 mg Tablet
5 mg PO DAILY
Rx Instructions:
take w/ 10 mg for total dose 15 mg
acetaminophen 325 mg Tablet
650 mg PO Q4HPRN PRN (Reason: mild pain/fever)
nystatin 100,000 unit/gram ointment
1 applic TOPICAL BIDPRN PRN (Reason: rash)
guaifenesin 100 mg/5 mL Liquid
100 - 200 mg PO Q4HPRN PRN (Reason: cough)
Citrucel 500 mg Tablet
1,000 mg PO BID@0800,1600
bethanechol chloride 25 mg tablet
25 mg PO BID
pantoprazole [Protonix] 40 mg tablet,delayed release (DR/EC)
40 mg PO DAILY Qty: 30 0RF
spironolactone 25 mg Tablet
12.5 mg PO DAILY Qty: 30 0RF
potassium chloride 10 mEq Tablet Extended Release
10 meq PO DAILY
ferrous sulfate 325 mg (65 mg iron) Tablet
325 mg PO DAILY
Stomach Relief 525 mg/15 mL Suspension
525 mg PO TIDPRN PRN (Reason: nausea/diarrhea)
Refresh Optive 0.5-0.9 % Drops
1 drp BOTH EYES DAILYPRN PRN (Reason: dry eyes)
metoprolol succinate 25 mg Tablet Extended Release 24 Hr
12.5 mg PO DAILY Qty: 30 0RF
Eliquis 5 mg tablet
5 mg PO BID Qty: 60 0RF
furosemide 40 mg Tablet
40 mg PO BID@0800,1600 Qty: 60 0RF
Discontinued
chlorhexidine gluconate 15 ML mouthwash
15 ml mucous membrane BID
Discharge Orders:
Discharge Patient (As Directed); Ordered 08/18/24
Ordered By: Skyler Zee
Discharge Date and Time
Discharge Date/Time: 08/18/24 13:15
Print Language: PERUVIAN
== END 2024-08-18 13:15 | disposition home or self-care (01) | DRG 292 ==
LOC: 3 WEST ACU 08:20
PROVIDERS: Internal Medicine; Nurse Practitioner Family; Radiology Vascular & Interventional Radiology; Student in an Organized Health Care Education/Training Program; ADMITTING PHYSICIAN Internal Medicine; ATTENDING PHYSICIAN Hospitalist; CONSULT PHYSICIAN Internal Medicine Cardiovascular Disease; CONSULT PHYSICIAN Internal Medicine Critical Care Medicine; EMERGENCY PHYSICIAN Emergency Medicine; REFERRING PHYSICIAN Nuclear Medicine Nuclear Cardiology
PROC: 0W993ZX Drainage of Right Pleural Cavity, Percutaneous Approach, Diagnostic (ICD-10-PCS; 2024-08-12)
DX: I50.33 Acute on chronic diastolic (congestive) heart failure (principal); F84.5 Asperger's syndrome; J98.11 Atelectasis; I31.39 Other pericardial effusion (noninflammatory); J94.8 Other specified pleural conditions; J95.811 Postprocedural pneumothorax; I48.0 Paroxysmal atrial fibrillation; G40.909 Epilepsy, unspecified, not intractable, without status epilepticus; R62.50 Unspecified lack of expected normal physiological development in childhood; Z11.52 Encounter for screening for COVID-19; G25.0 Essential tremor; G47.33 Obstructive sleep apnea (adult) (pediatric); M41.9 Scoliosis, unspecified; Z79.01 Long term (current) use of anticoagulants; Z79.899 Other long term (current) drug therapy; Z87.440 Personal history of urinary (tract) infections; Z90.79 Acquired absence of other genital organ(s)
CPT/HCPCS: 88305; 32555; 71045; 71046; 71260; 80048; 80053; 82962; 83615; 83880; 83986; 84145; 84155; 84157; 85025; 85027; 87015; 87070; 87205; 87449; 87502; 87811; 87899; 88112; 93005; 94660; 96365; 96375; 97162; 97166; 97530; 99285; Q9967

== ENCOUNTER 2024-08-24 22:55 | Inpatient (IN) | payer OTHER, SELFPAY ==
[2024-08-24 17:29] VITALS: BP 123/72
[2024-08-24 18:20] LABS: COVID-19 Antigen Negative (Negative)
[2024-08-24 20:00] VITALS: BP 105/55
--- NOTE | 2024-08-24 20:30 | ED.GENMED ---
History of Present Illness
General
Chief Complaint: Breathing Problem
Source: patient and family (I spoke with sister over the phone )
Exam Limitations: none
Time Seen by Provider: 08/24/24 19:59
Nursing documentation reviewed up to this point in time: agreed with
History of Present Illness
History of Present Illness:
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
I spoke with sister, Diamond. Pt was seen at [facility] today for head injury and cough. he had a CT head/neck which was negative. Sister reports [facility] wanted to admit him for CHF and regular lung issues ' however sister signed him out because
she wanted him at [facility]. She reports he is well known to pulmonary here.
She reports he has gained 5 lbs since the weekend.
He has recurrent pleural effusions and sister stated that they have been recommending possible hospice or palliative care. It is documented in his past that he is not a candidate for Pleurx catheter but a conservative approach is recommended.
Patient is awake alert pleasant; he he is able to give some history and only complains of cough.
Patient was just admitted August 10 and discharged August 18 and had thoracentesis. Pulmonary was consulted. Patient was diagnosed with trapped lung and it was felt that pt was likely to have fluid accumulate again in right lung..
Past History
Past History
ED Past Medical History: CHF, Hypercholesterolemia, Seizures, Psychiatric (OCD) and Other (Diverticulosis, Asperger's developmental delays, Mild Mental retardation, Essential tremors, Hemorrhoids, pleural effusion, cirrhosis by imaging)
ED Past Surgical History: Cholecystectomy, Urological (TURP) and Other (ASSISTANT BRANCH MANAGER shunt. Hernia repair Ventril, Cataracts, )
Social History
Tobacco: Non-smoker
Alcohol: None
Drug: None
Personal: Single
Living: assisted [facility] ([facility])
Employment: Not employed
Review of Systems
Review of Systems
Allergies reviewed?: Yes
Other source history: family ((sister ) )
All Other Systems: ROS reviewed and negative except as documented in HPI and ROS
Constitutional: Denies fever
EENT: Reports no symptoms
Respiratory: Reports cough and trouble breathing
Cardiac: Reports no symptoms
ABD/GI: Reports no symptoms
: Reports no symptoms
Musculoskeletal: Reports no symptoms
Skin: Reports no symptoms
Neurological: Reports no symptoms
Psychiatric: Reports no symptoms
Phy Exam
General Physical Exam
General Presentation: no apparent distress
General age: appears stated age
General Skin: warm and dry
General Habitus: elderly
General Mental: alert
General Hydration: appears well hydrated
Neurological Exam
Neurological Exam: alert and other (oriented and follows commands )
Musculoskeletal Exam
Musculoskeletal Exam: full ROM and other (+ swelling to b/l legs )
Skin Exam
Skin Exam: normal color and warm/dry
Psychiatric Exam
Psychiatric Exam: normal mood/affect
Scores
Heart Failure Risk
Heart Failure Risk Score: Not Applicable
Course
Orders/Labs/Results
Orders:
Orders
08/24/24 17:31
Electrocardiogram (*1) Urgent
Reason for Study: Shortness of Breath
EKG- Treatment ONCE
08/24/24 17:41
COVID-19 Antigen Urgent
Source: Nasal Swab
Influenza A+B Rapid Molecular Urgent
MICHAEL Source: Nasal Swab
Specimen Description:
08/24/24 20:41
Complete Blood Count/With Diff Urgent
Comprehensive Metabolic Panel Urgent
NT-proBNP Urgent
08/24/24 20:52
Chest [CR Chest - 2 Views ] Urgent
Comment:
Reason For Exam: sob
Abnormal Lab Results
08/24/24
20:41
MCH 31.8 H pg
(27.0-31.0)
Absolute Lymphs (auto) 0.6 L 10^3/uL
(1.2-3.4)
Absolute Monos (auto) 1.0 H 10^3/uL
(0.1-0.6)
Lymphocytes % 9.5 L %
(20.5-51.1)
Monocytes % 15.6 H %
(1.7-9.3)
Sodium 133 L mmol/L
(135-145)
BUN 23 H mg/dl
(9-20)
Alkaline Phosphatase 235 H U/L
(38-126)
Total Protein 5.7 L g/dl
(6.3-8.2)
Albumin 3.0 L g/dl
(3.5-5.0)
08/24/24 20:41
08/24/24 20:41
Vital Signs
Initial and Last Documented VS:
Initial Vital Signs
Temp Pulse Resp BP Pulse Ox
98.7 F 86 18 123/72 98
08/24/24 17:29 08/24/24 17:29 08/24/24 17:29 08/24/24 17:29 08/24/24 17:29
Last Documented Vital Signs
Temp Pulse Resp BP Pulse Ox
98.7 F 75 32 105/95 97
08/24/24 17:29 08/24/24 22:03 08/24/24 22:03 08/24/24 22:03 08/24/24 22:03
Type Copyist consulted with Physician
Type Copyist consulted with physician?: Yes
Name of Physician Consulted: [facility]
MDM/Problems Addressed
MDM/Problems Addressed:
as documented patient is a 74-year-old male with cognitive impairment, as Buerger's seizures ASSISTANT BRANCH MANAGER shunt recurrent pleural effusions sent for evaluation of cough shortness of breath. Patient has a chronic right-sided effusion with multiple
thoracentesis. He was sent by facility. He was initially [facility] today because he hit his head on blood thinners and they did a full workup including CT head and cervical spine which were negative. They did recommend that he be admitted there
for pleural effusion but because care is here sister wanted him transferred. Patient was taken back to his facility and brought here by EMS. Patient has recurrent pleural effusion on xray will likely need thoracentesis. I did have a long
conversation with sister who reports they have been talking about hospice and more conservative care will need case management. Patient is awake alert no acute distress. Patient is afebrile with a normal white count stable hemoglobin.
Chronic conditions affecting care:
Recurrent pleural effusion/thoracentesis as Buerger's developmental delay seizures
*Radiology
Radiology exam reviewed: preliminary read by ED provider
*Pulse Oximetry
Patient hypoxic: no
*EKG
Interpreted by ED Provider?: Yes
Interpretation: abnormal
Heart Rate: 69
Rate: normal
Rhythm: sinus
Ischemia: non-specific ST changes
*Critical Care Note
Total Time (30-74mins, 75-104mins- exclusive of procedures): Not Applicable
Data Reviewed
Review of Other/Old Records Reveals: Discharge Summary
ED Attending Note
-
Portions of this chart may have been created with voice recognition software.� Occasional wrong word or��sound alike� substitutions may have occurred due to the inherent limitations of voice recognition software.
Discharge Plan
Departure
Patient Disposition: Admit
Date of Disposition: 08/24/24
Time of Disposition: 22:01
Admit to: Med/Surg
Admit to doctor: hospitalist
Presentation/result/management discussed w/ accepting MD/DO: Hospitalist
Patient with high blood pressure during this ER visit?: No
Condition: Fair
Covid-19: Not Applicable
Discharge Problem:
right sided pleural effusion
Prescriptions:
No Action
clonazepam 0.5 MG tablet
0.5 mg PO BID
docusate sodium 100 MG capsule
100 mg PO BID@0800,1600
phenobarbital 32.4 MG tablet
32.4 mg PO TID@0800,1200,1600
calcium carbonate-vitamin D3 [Oyster Shell Calcium-Vit D3] 500 mg-5 mcg (200 unit) Tablet
1 tab PO BID@0800,1600
polyethylene glycol 3350 17 GRAMS powder in packet
17 grams PO DAILY
simvastatin 10 mg Tablet
10 mg PO QPM
tamsulosin 0.4 mg Capsule
0.4 mg PO DAILY
escitalopram oxalate 10 mg Tablet
10 mg PO DAILY
Rx Instructions:
take w/ 5 mg for total dose 15 mg
escitalopram oxalate 5 mg Tablet
5 mg PO DAILY
Rx Instructions:
take w/ 10 mg for total dose 15 mg
acetaminophen 325 mg Tablet
650 mg PO Q4HPRN PRN (Reason: mild pain/fever)
nystatin 100,000 unit/gram ointment
1 applic TOPICAL BIDPRN PRN (Reason: rash)
guaifenesin 100 mg/5 mL Liquid
100 - 200 mg PO Q4HPRN PRN (Reason: cough)
Citrucel 500 mg Tablet
1,000 mg PO BID@0800,1600
bethanechol chloride 25 mg tablet
25 mg PO BID
pantoprazole [Protonix] 40 mg tablet,delayed release (DR/EC)
40 mg PO DAILY Qty: 30 0RF
spironolactone 25 mg Tablet
12.5 mg PO DAILY Qty: 30 0RF
potassium chloride 10 mEq Tablet Extended Release
10 meq PO DAILY
ferrous sulfate 325 mg (65 mg iron) Tablet
325 mg PO DAILY
Stomach Relief 525 mg/15 mL Suspension
525 mg PO TIDPRN PRN (Reason: nausea/diarrhea)
Refresh Optive 0.5-0.9 % Drops
1 drp BOTH EYES DAILYPRN PRN (Reason: dry eyes)
metoprolol succinate 25 mg Tablet Extended Release 24 Hr
12.5 mg PO DAILY Qty: 30 0RF
Eliquis 5 mg tablet
5 mg PO BID Qty: 60 0RF
midodrine 5 mg Tablet
10 mg PO TID@0800,1300,1800 Qty: 90 0RF
furosemide 40 mg Tablet
40 mg PO BID@0800,1600 Qty: 60 0RF
Referrals:
Taylor Daniels MD [Family Provider] -
Interventions
Interventions:
*Risk Screen - Suicide Last Done: 08/24/24 17:29
*General Assessment Last Done: 08/24/24 17:29
*Neglect/Abuse Screening Last Done: 08/24/24 17:29
*ED- Fall Risk Assessment Last Done: 08/24/24 20:12
*ED COVID-19 Vaccine History Last Done: 08/24/24 17:29
ED- Pulmonary Assessment Last Done: 08/24/24 21:00
Discharge Date and Time
Print Language: CROATIAN
[2024-08-24 21:00] VITALS: BP 121/81
[2024-08-24 21:01] LABS: % Basophils 0.6 % (0-2); % Eosinophils 0.5 % (0-6); % Immature Granulocytes 0.5 % (0-0.5); % Lymphocytes 9.5 % (20.5-51.1); % Monocytes 15.6 % (1.7-9.3); % Neutrophils 73.3 % (42.2-75.2); Absolute Lymphocytes 0.6 10^3/uL (1.2-3.4); Absolute Neutrophils 4.7 10^3/uL (1.4-6.5); Hematocrit 43.3 % (39.0-52.0); Hemoglobin 15.1 g/dL (13.0-18.0); Mean Corp Hgb Conc. 34.9 g/dL (33.0-37.0); Mean Corpuscular Hgb 31.8 pg (27.0-31.0); Mean Corpuscular Volume 91.2 fL (80.0-94.0); Mean Platelet Volume 9.8 fL (7.4-10.4); Nucleated Red Blood Cells % 0 % (-); Platelet Count 240 10^3/uL (130-400); Red Blood Cell Count 4.75 10^6/uL (4.70-6.10); Red Cell Dist. Width 14.5 % (11.5-14.5); White Blood Cell Count 6.4 10^3/uL (4.8-10.8)
[2024-08-24 21:20] LABS: ALT (SGPT) 28 U/L (0-50); AST (SGOT) 39 U/L (17-59); Alkaline Phosphatase 235 U/L (38-126); Blood Urea Nitrogen 23 mg/dl (9-20); Calcium 8.5 mg/dl (8.4-10.2); Carbon Dioxide 27 mmol/L (22-30); Chloride 100 mmol/L (98-107); Glucose 79 mg/dl (70-99); Potassium 4.6 mmol/L (3.5-5.1); Sodium 133 mmol/L (135-145); Total Bilirubin 0.9 mg/dl (0.2-1.3); Total Protein 5.7 g/dl (6.3-8.2); eGFR > 60.00
[2024-08-24 21:27] LABS: NT-proBNP 2250 pg/ml
[2024-08-24 22:03] VITALS: BP 105/95
--- NOTE | 2024-08-24 22:10 | HPS.HSE ---
Family Physician
-
Family Physician: Taylor Daniels
Chief Complaint
-
Shortness of breath
History of Present Illness
This is a 74-year-old with past medical history significant for intellectual developmental delay, history of seizure disorder, status post craniectomy, DEBONE SUPERVISOR shunt, paroxysmal afib, CHF with preserved EF with last echocardiogram in May showing EF
of 55 to 60% and unchanged from the previous about 1 month prior to that, history of recurrent pleural effusion status post multiple thoracentesis, hyperlipidemia presents again to the emergency department for cough and shortness of breath.
According to the history provided by sister, patient has been having increasing cough and some shortness of breath. 10 he had a fall at this facility and hit his head today. Was seen at [facility] and had a head CT and C-spine which were
negative. He was recommended for admission due to the pleural effusion however sister signed him out AMA and wanted to transfer him to does not wait gets most of his care.
Patient was last admitted and discharged on August 18 for shortness of breath. At the time he had a right pleural effusion and congestive heart failure. He was treated with IV diuresis and then he had a right thoracentesis and post-thoracentesis
developed right hydropneumothorax. CT scan of the chest performed. Pulmonary was consulted. It was felt that patient had a trapped lung. Unfortunately patient appears to have high chance of reaccumulation due to the trapped lung and is not a
candidate for any procedures in the future like Pleurx catheter or VATS or pleurodesis. Palliative approach was recommended.
On arrival here today he secondary 7% on room air, blood pressure was 121/81 with pulse of 71 respiratory rate was in the high 20s, he was afebrile with a temp of 98.7.
ECG is nonischemic. Chest x-ray shows worsening right-sided pleural effusion. CT of the head and C-spine was negative at [place].
CBC was unremarkable electrolytes BUN/creatinine were normal.
Medical History
Past Medical History
Past Medical History: Reports Other
Additional Past Medical History:
HFpEF
hyperlipidemia
BPH
seizure
essential tremor
recurrent pleural effusions
hx pericardial effusion
autism/developmental delay
Past Surgical History: Reports Other
Additional Past Surgical History:
DEBONE SUPERVISOR shunt
TURP
cholecystectomy
thoracentesis
Social History
Tobacco: Non-smoker
Alcohol: None
Drug: None
Personal: Single
Living: [facility]
Family History
Family History: Not pertinent
Allergies / Home Medications
Allergies reflects when Allergies were last updated in [facility].
Home Medications with original date entered in [facility]
Allergy/Medication List:
Allergies
Allergy/AdvReac Type Severity Reaction Status Date / Time
No Known Allergies Allergy Verified 08/06/24 16:55
Home Medications
clonazepam 0.5 mg tablet 0.5 mg PO BID Mental Health/Anxiety 02/24/19
docusate sodium 100 mg capsule 100 mg PO BID@0800,1600 Constipation 02/24/19
phenobarbital 32.4 mg tablet 32.4 mg PO TID@0800,1200,1600 Seizures 02/24/19
calcium 500 mg (as carbonate)-vitamin D3 5 mcg (200 unit) tablet (Oyster Shell Calcium-Vitamin D3) 1 tab PO BID@0800,1600 Supplement 12/07/21
polyethylene glycol 3350 17 gram oral powder packet 17 grams PO DAILY Constipation 12/07/21
escitalopram oxalate 10 mg tablet 10 mg PO DAILY Mental Health/Anxiety 02/13/22
escitalopram oxalate 5 mg tablet 5 mg PO DAILY Mental Health/Anxiety 02/13/22
simvastatin 10 mg tablet 10 mg PO QPM High cholesterol 02/13/22
tamsulosin 0.4 mg capsule 0.4 mg PO DAILY Urinary issue 02/13/22
acetaminophen 325 mg tablet 650 mg PO Q4HPRN PRN mild pain/fever 04/17/23
bethanechol chloride 25 mg tablet 25 mg PO BID Urinary Issue 04/17/23
guaifenesin 100 mg/5 mL oral liquid 100 - 200 mg PO Q4HPRN PRN cough 04/17/23
methylcellulose (laxative) 500 mg tablet (Citrucel) 1,000 mg PO BID@0800,1600 Constipation 04/17/23
nystatin 100,000 unit/gram topical ointment 1 applic topical BIDPRN PRN rash 04/17/23
pantoprazole 40 mg tablet,delayed release (Protonix) 40 mg PO DAILY GERD #30 tabs 04/21/23
spironolactone 25 mg tablet 12.5 mg (1/2 x 25 mg) PO DAILY #30 tabs 05/21/23
bismuth subsalicylate 525 mg/15 mL oral suspension (Stomach Relief) 525 mg PO TIDPRN PRN nausea/diarrhea 05/28/24
carboxymethylcellulose 0.5 %-glycerin 0.9 % eye drops (Refresh Optive) 1 drp BOTH EYES DAILYPRN PRN dry eyes 05/28/24
ferrous sulfate 325 mg (65 mg iron) tablet 325 mg PO DAILY Supplement 05/28/24
potassium chloride 10 mEq tablet,extended release 10 meq PO DAILY Supplement 05/28/24
apixaban 5 mg tablet (Eliquis) 5 mg PO BID #60 tabs 06/01/24
metoprolol succinate 25 mg tablet,extended release 24 hr 12.5 mg (1/2 x 25 mg) PO DAILY #30 tabs 06/01/24
furosemide 40 mg tablet 40 mg PO BID@0800,1600 #60 tabs 08/18/24
midodrine 5 mg tablet 10 mg (2 x 5 mg) PO TID@0800,1300,1800 #90 tabs 08/18/24
Review of Systems
-
Unable to obtain full review of systems at this time due to: Patient Non-verbal
Physical Exam
Vital Signs
Vital Signs
Temp Pulse Resp BP Pulse Ox
98.7 F 75 32 105/95 97
08/24/24 17:29 08/24/24 22:03 08/24/24 22:03 08/24/24 22:03 08/24/24 22:03
Physical Exam
General: Well Developed, Well Nourished, No Apparent Distress, Comfortable, Conversant and Appears Chronically Ill
HEENT: NormoCephalic, Moist mucous membranes, Atraumatic, Erin Conjunctivae, Nose Appears Normal and Ears Appear Normal
Respiratory: Clear, Non Labored Respirations and Decreased Breath Sounds (in bilateral lower lobes )
Cardiac: S1/S2 and Regular Rhythm; No Murmur, Rub or Gallop
Breast: Deferred by me
GI: Soft, Non Tender, Non Distended and Normal Bowel Sounds; No Organomegaly
Rectal: Deferred by Provider
Genito-urinary: Deferred by me
Musculoskeletal: No Clubbing, No Cyanosis, Edema, Left Lower Extremity and Edema, Right Lower Extremity
Skin: No Rash
Neuro: Awake and Alert
Psych: Calm
Laboratory Results
-
08/24/24 20:41
08/24/24 20:41
Laboratory Results
Total Bilirubin 0.9 mg/dl (0.2-1.3) 08/24/24 20:41
AST 39 U/L (17-59) 08/24/24 20:41
ALT 28 U/L (0-50) 08/24/24 20:41
Alkaline Phosphatase 235 U/L (38-126) H 08/24/24 20:41
Data Reviewed
-
Diagnostic Radiology: Image Personally Visualized and interpreted
Medical Tests (Nuc Med, Echo, EKG etc): Image Personally Visualized and interpreted
Old Records: Reviewed
Impression/Plan
-
IMPRESSION:
74-year-old with complex past medical history with cognitive impairment, history of seizures, craniectomy status post DEBONE SUPERVISOR shunting, CHF, recurrent pleural effusions with trapped lung with high chance of reaccumulation. Unfortunately not a candidate
for destination procedures such as pleurodesis he or VATS and now comes in with shortness of breath after a fall. Patient is slightly tachypneic. However oxygen saturation was 97% on room air. He has no acute complaints and is afebrile. Is not
obviously showing signs of infection. There is increased accommodation in the right pleural effusion at this time.
PLAN:
Right pleural effusion -per previous pulmonary evaluation, trapped lungs with high chance of reaccumulation which has now occurred. Probably will try to manage without repeat thoracenteses given complication of thoracentesis the last 9 with
hydropneumothorax. He does have bilateral ankle edema this time. Elevated BNP noted. JVD noted
-Admit to telemetry for CHF exacerbation
-Lasix 60 mg now and then 40 mg every 12
-Follow daily weights and ins and outs
-Midodrine tid, continue spironolactone and metoprolol
-Flu COVID-negative, no leukocytosis, afebrile
- pulmonary consultation
AFIB - paroxysmal
- continue metoprolol and eliquis
ENEDINA
- continue home CPAP/BIPAP HS
Seziure
- continue phenobarbital
DVT PPX - on eliquis
Code Status - Full Code
[2024-08-24 23:00] VITALS: BP 113/84
[2024-08-25] VITALS (18 sets, daily range): BP systolic 94–149; BP diastolic 59–125; BMI 26.5; BMI 26.0
[2024-08-25] MEDS: LASIX 60 MG IV (00:12)
[2024-08-25] MEDS: ProAmatine 10 MG PO ×4 (00:15→17:09)
[2024-08-25] MEDS: FLUSH (NSS) 1 FLUSH IV (00:16)
[2024-08-25 06:46] LABS: Blood Urea Nitrogen 24 mg/dl (9-20); Calcium 8.7 mg/dl (8.4-10.2); Carbon Dioxide 25 mmol/L (22-30); Chloride 103 mmol/L (98-107); Estimated Creatinine Clearance 69 ml/min; Glucose 69 mg/dl (70-99); Potassium 4.1 mmol/L (3.5-5.1); Sodium 137 mmol/L (135-145); eGFR > 60.00
[2024-08-25] MEDS: MIRALAX 17 GRAMS PO (08:04)
[2024-08-25] MEDS: TOPROL XL 12.5 MG PO (08:05)
[2024-08-25] MEDS: ALDACTONE 12.5 MG PO (08:06)
[2024-08-25] MEDS: ELIQUIS 5 MG PO ×2 (08:06→19:58)
[2024-08-25] MEDS: KLONOPIN 0.5 MG PO ×2 (08:06→19:58)
[2024-08-25] MEDS: PROTONIX 40 MG PO (08:06)
[2024-08-25] MEDS: FLOMAX 0.4 MG PO (08:07)
[2024-08-25] MEDS: LASIX 40 MG IV ×2 (08:07→16:02)
[2024-08-25] MEDS: LUMINAL 32.4 MG PO ×3 (08:07→16:02)
[2024-08-25] MEDS: COLACE 100 MG PO ×2 (08:07→16:02)
[2024-08-25] MEDS: LEXAPRO 15 MG PO (08:07)
--- NOTE | 2024-08-25 08:39 | W.PN.HOSP.TC ---
Today's Communication/Plan
-
See PN
Assessment / Plan
Assessment / Plan
74yo M with Asperger, Hx of seizure d/o, TURBINE ASSEMBLER shunt, paroxysmal Afib, HFpEF, HLD, BPH, recurrent pleural effusion [facility] in [facility] and sent to [facility] where his hed and neck CT were done and negative, but he was recommended for
admission for CHF exacerbation. Sister signed out him to bring him to the . He has moderate R hydropneumothorax, similar to CT on 08/17/24 done before his d/c from . ProBNP mildly elevated so patient started on diuresis. Previously followed for
persistent R pleural effusion with trapped lung. Thoracentesis found transudate at that time.
A/P:
#Acute on chronic HFpEF with persistent R pleural effusion
Not hypoxic at [facility] time
Echo in May 2024 - preserved EF, no significant valvular dysfunction
Pulmonology consult - previously effusion found present since at least 2022. High risk for reaccumulation. May need to consider VATS/pleurodesis, possibly pleural cath vs palliative approach
Lasix, daily weight, follow Cr and electrolytes
#Paroxysmal Afib
#Asperger
#Developmental delay
#TURBINE ASSEMBLER shunt
#Orthostatic hypotension
#HLD
#ENEDINA on CPAP
#Seizure d/o
#Essential HTN
#BPH
watch for retention
seizure precautions
cont home meds
DVT ppx ELiquis
Full code
I have spent at least 58min reviewing chart, test results, communication with consultants and providing direct patient care
Anticipated Discharge: 24 - 48 hours
Subjective/Interval History
-
Date of Service: August 25, 2024
Objective Data
-
Labs:
Laboratory Results
08/24/24 08/25/24
20:41 06:01
WBC 6.4
Hgb 15.1
Hct 43.3
Plt Count 240
Sodium 133 L 137
Potassium 4.6 4.1
Chloride 100 103
Carbon Dioxide 27 25
BUN 23 H 24 H
Creatinine 0.8 0.8
Glucose 79 69 L
Calcium 8.5 8.7
Total Bilirubin 0.9
AST 39
ALT 28
Alkaline Phosphatase 235 H
Vital Signs:
Vital Signs
Temp Pulse Resp BP Pulse Ox
98.8 F 90 24 146/75 94
08/25/24 07:38 08/25/24 08:07 08/25/24 07:38 08/25/24 08:07 08/25/24 07:41
Review of Systems
-
History Source: Patient
All other systems: Reviewed and negative
Respiratory: Reports Cough
Physical Exam
-
General: No Apparent Distress and Comfortable
Respiratory: Clear to Auscultation
Cardiac: Regular Rhythm
GI: Soft, Nontender and Nondistended
Musculoskeletal: Edema, Right Lower Extrem and Edema, Left Lower Extrem
Skin: Warm
Neuro: Awake, Alert and Oriented
Psych: Negative Intact Judgement/Insight
[2024-08-25] MEDS: URECHOLINE 25 MG PO ×2 (12:40→20:32)
--- NOTE | 2024-08-25 14:23 | CM ---
CM spoke with nursing [facility] [phone]
Ramp entrance into home with 19 other residents
Nursing not on weekends
Pt ambulates 1 person assist with WW
He requires coaxing and cueing and occasional hands on assistance with personal care tasks
He utilizes a bipap
[facility] is [facility] with [facility]
PCP- Taylor Daniels
Rx- [facility] [address]
Pt will need PT/OT orders to assess safe return to [facility] nurses will need to complete onsite assessment prior to dc
Pt was set up with Palliative for an intake
Was cancelled as [facility] staff uncertain if palliative will be helpful
Nursing staff noted pt and family not ready for hospice yet
Plan to re-refer to Palliative on dc for info per nursing staff request
Discharge Disposition- return [facility] and new palliative referral
--- NOTE | 2024-08-25 15:15 | PTCARENOTE ---
Pt. arrived to unit via stretcher and was able to stand and pivot to bed with a X2 assist. Pt. admitted and assessed. RR 28 with audible wheezing and occasional harsh cough. Pt. 96% on RA. Hospitalist updated on pt. and asked about prn breathing tx.
VSS. No new orders at this time.
--- NOTE | 2024-08-25 15:49 | CON.PUL ---
Consultation
Consultation Request
Date/Time Consultation Requested: 08/25/2024
Date/Time Consultation Performed: 08/25/2024
Requesting Provider: dav Spicer
Performing Provider: Sue Cespedes
Reason for Consultation: Pleural effusion
Medical History
-
Chief Complaint: Shortness of breath
History of Present Illness:
Patient is a 74-year-old gentleman with history of congestive heart failure with preserved ejection fraction, hyperlipidemia, BPH, seizure disorder, cognitive deficit likely related to developmental delay, chronic right-sided pleural effusion who
presents to the emergency room for shortness of breath. Patient had similar presentation last month where he had a right-sided thoracentesis complicated by hydropneumothorax with trapped lung. During this admission, chest x-ray was performed which
again showed right-sided pleural effusion and pulmonary consultation was requested for further input.
Additional Past Medical History:
HFpEF
hyperlipidemia
BPH
seizure
essential tremor
recurrent pleural effusions
hx pericardial effusion
autism/developmental delay
Past Surgical History: Reports Other
Additional Past Surgical History:
QUALITY CONTROL CHECKER shunt
TURP
cholecystectomy
thoracentesis
Social History
Tobacco: Non-smoker
Alcohol: None
Drug: None
Personal: Single
Living: [facility]
Family History
Family History: Not pertinent
Allergies / Home Medications
Allergies
Allergy/AdvReac Type Severity Reaction Status Date / Time
No Known Allergies Allergy Verified 08/06/24 16:55
Home Medications
�Medication �Instructions �Recorded �Confirmed �Last Taken �Type
clonazepam 0.5 mg tablet 0.5 mg PO BID Mental Health/Anxiety 02/24/19 08/25/24 07/06/24 History
docusate sodium 100 mg capsule 100 mg PO BID@0800,1600 02/24/19 08/25/24 07/06/24 History
Constipation
phenobarbital 32.4 mg tablet 32.4 mg PO TID@0800,1200,1600 02/24/19 08/25/24 07/06/24 History
Seizures
calcium 500 mg (as 1 tab PO BID@0800,1600 Supplement 12/07/21 08/25/24 07/06/24 History
carbonate)-vitamin D3 5 mcg (200
unit) tablet (Oyster Shell
Calcium-Vitamin D3)
polyethylene glycol 3350 17 gram 17 grams PO DAILY Constipation 12/07/21 08/25/24 07/06/24 History
oral powder packet
escitalopram oxalate 10 mg tablet 10 mg PO DAILY Mental 02/13/22 08/25/24 07/06/24 History
Health/Anxiety
escitalopram oxalate 5 mg tablet 5 mg PO DAILY Mental Health/Anxiety 02/13/22 08/25/24 07/06/24 History
simvastatin 10 mg tablet 10 mg PO QPM High cholesterol 02/13/22 08/25/24 07/05/24 History
tamsulosin 0.4 mg capsule 0.4 mg PO DAILY Urinary issue 02/13/22 08/25/24 07/06/24 History
acetaminophen 325 mg tablet 650 mg PO Q4HPRN PRN mild 04/17/23 08/25/24 Unknown History
pain/fever
bethanechol chloride 25 mg tablet 25 mg PO BID Urinary Issue 04/17/23 08/25/24 07/06/24 History
guaifenesin 100 mg/5 mL oral liquid 100 - 200 mg PO Q4HPRN PRN cough 04/17/23 08/25/24 Unknown History
methylcellulose (laxative) 500 mg 1,000 mg PO BID@0800,1600 04/17/23 08/25/24 07/06/24 History
tablet (Citrucel) Constipation
nystatin 100,000 unit/gram topical 1 applic topical BIDPRN PRN rash 04/17/23 08/25/24 Unknown History
ointment
pantoprazole 40 mg tablet,delayed 40 mg PO DAILY GERD #30 tabs 04/21/23 08/25/24 07/06/24 Rx
release (Protonix)
spironolactone 25 mg tablet 12.5 mg (1/2 x 25 mg) PO DAILY #30 05/21/23 08/25/24 07/06/24 Rx
tabs
bismuth subsalicylate 525 mg/15 mL 525 mg PO TIDPRN PRN 05/28/24 08/25/24 Unknown History
oral suspension (Stomach Relief) nausea/diarrhea
carboxymethylcellulose 0.5 1 drp BOTH EYES DAILYPRN PRN dry 05/28/24 08/25/24 Unknown History
%-glycerin 0.9 % eye drops eyes
(Refresh Optive)
ferrous sulfate 325 mg (65 mg 325 mg PO DAILY Supplement 05/28/24 08/25/24 07/06/24 History
iron) tablet
potassium chloride 10 mEq 10 meq PO DAILY Supplement 05/28/24 08/25/24 07/06/24 History
tablet,extended release
apixaban 5 mg tablet (Eliquis) 5 mg PO BID #60 tabs 06/01/24 08/25/24 07/06/24 Rx
metoprolol succinate 25 mg 12.5 mg (1/2 x 25 mg) PO DAILY #30 06/01/24 08/25/24 07/06/24 Rx
tablet,extended release 24 hr tabs
furosemide 40 mg tablet 40 mg PO BID@0800,1600 #60 tabs 08/18/24 08/25/24 Unknown Rx
midodrine 5 mg tablet 10 mg (2 x 5 mg) PO 08/18/24 08/25/24 Unknown Rx
TID@0800,1300,1800 #90 tabs
chlorhexidine gluconate 0.12 % 15 ml PO BID 08/25/24 08/25/24 Unknown History
mouthwash
Review of Systems
-
Unable to Obtain full review of systems at this time due to: Acuity
Vitals / Labs / Diagnostic Testing
Vital Signs
Temp Pulse Resp BP Pulse Ox
97.5 F 79 28 113/79 94
08/25/24 15:10 08/25/24 15:10 08/25/24 15:10 08/25/24 15:10 08/25/24 15:10
Lab Data
08/24/24 20:41
08/25/24 06:01
Microbiology
08/24/24 17:41 Nasal Swab Influenza Types A & B (ALLISON) - Final
Negative for Influenza A & B, NAAT
Negative results must be combined with clinical observations
and patient history.
Nucleic Acid Amplification test (NAAT)performed on the
[employer] platform.
Diagnostic Testing:
Physical Exam
-
HEENT: Normocephalic
Cardiovascular: S1/S2 and Peripheral Edema (Bilateral 1+ pitting edema)
Respiratory: Wheeze and Other (Decreased air entry in the right posterior base.)
GI: Soft and Non Distended
Neurology: Awake and Alert
Skin: Warm
General: Comfortable
Assessment
-
#1. Chronic Right sided pleural effusion, trapped lung with thick pleura on CT. Prior h/o hydropneumothorax post thoracentesis without lung re-expansion (07/2024).
-Would not recommend thoracentesis as lung is unlikely to expand and he will likely have Pneumo ex-vacuo.
-Patient appears volume overloaded, which is likely etiology of his worsening symptoms
-Continue IV Lasix
#2. Acute on chronic HFpEF. BNP elevated, increased interstitial markings on imaging
-IV Lasix as ordered
#3. Bronchospasm on exam, ? suspect wheezing from volume overload. Unclear if any known h/o Asthma. Unable to reach sister for additional information.
-Duoneb qid
-Anticipate this should improve with IV Lasix
#4. h/o ENEDINA
-Nightly CPAP
-In view of volume overload, low threshold to use during day time while IV Lasix works.
Total time spent on this consultation/encounter __62__ minutes which includes review of history, physical exam, medications, laboratory data, personal review of imaging, extensive review of outpatient records, discussion with care team and
respiratory therapy.
[2024-08-25] MEDS: DUONEB 3 ML INH ×2 (16:10→19:28)
[2024-08-25] MEDS: LIPITOR 10 MG PO (17:09)
[2024-08-26] VITALS (7 sets, daily range): BP systolic 86–115; BP diastolic 52–76; BMI 24.8
[2024-08-26] MEDS: DUONEB 3 ML INH ×4 (07:30→19:28)
[2024-08-26] MEDS: TOPROL XL 12.5 MG PO (07:47)
[2024-08-26] MEDS: LEXAPRO 15 MG PO (07:48)
[2024-08-26] MEDS: KLONOPIN 0.5 MG PO ×2 (07:48→20:58)
[2024-08-26] MEDS: ProAmatine 10 MG PO ×3 (07:48→17:06)
[2024-08-26] MEDS: LUMINAL 32.4 MG PO ×3 (07:48→17:06)
[2024-08-26] MEDS: PROTONIX 40 MG PO (07:49)
[2024-08-26] MEDS: FLOMAX 0.4 MG PO (07:49)
[2024-08-26] MEDS: ALDACTONE 12.5 MG PO (07:49)
[2024-08-26] MEDS: ELIQUIS 5 MG PO ×2 (07:49→20:58)
[2024-08-26] MEDS: URECHOLINE 25 MG PO ×2 (07:50→20:58)
[2024-08-26] MEDS: LASIX 40 MG IV (07:50)
[2024-08-26] MEDS: MIRALAX PO (07:51)
[2024-08-26] MEDS: COLACE PO ×2 (07:51→17:04)
--- NOTE | 2024-08-26 10:20 | W.PN.HOSP.TC ---
Today's Communication/Plan
-
lost 4 Lbs overniht - increase Lasix, follow Cr
Assessment / Plan
Assessment / Plan
74yo M with Asperger, Hx of seizure d/o, WALLPAPER SCRAPER shunt, paroxysmal Afib, HFpEF, HLD, BPH, recurrent pleural effusion fell in [facility] and sent to [facility] where his hed and neck CT were done and negative, but he was recommended for
admission for CHF exacerbation. Sister signed out him to bring him to the . He has moderate R hydropneumothorax, similar to CT on 08/17/24 done before his d/c from . ProBNP mildly elevated so patient started on diuresis. Previously followed for
persistent R pleural effusion with trapped lung. Thoracentesis found transudate at that time. As per further assessmetn by Pulmonology -no thoracentesis advised. Treated for CHF
A/P:
#Acute on chronic HFpEF with persistent R pleural effusion
Not hypoxic at [facility] time
Echo in May 2024 - preserved EF, no significant valvular dysfunction
Pulmonology consult - previously effusion found present since at least 2022. High risk for reaccumulation. May need to consider VATS/pleurodesis, possibly pleural cath vs palliative approach
Lasix, daily weight, follow Cr and electrolytes
#Paroxysmal Afib
#Asperger
#Developmental delay
#WALLPAPER SCRAPER shunt
#Orthostatic hypotension
#HLD
#ENEDINA on CPAP
#Seizure d/o
#Essential HTN
#BPH
watch for retention
seizure precautions
cont home meds
DVT ppx ELiquis
Full code
I have spent at least 58min reviewing chart, test results, communication with consultants and providing direct patient care
Anticipated Discharge: 24 - 48 hours
Subjective/Interval History
-
Date of Service: August 26, 2024
Objective Data
-
Labs:
Laboratory Results
08/26/24
09:07
Sodium Pending
Potassium Pending
Chloride Pending
Carbon Dioxide Pending
BUN Pending
Creatinine Pending
Glucose Pending
Calcium Pending
Vital Signs:
Vital Signs
Temp Pulse Resp BP Pulse Ox
96.9 F L 76 19 110/72 92
08/26/24 07:39 08/26/24 07:39 08/26/24 07:39 08/26/24 07:39 08/26/24 07:39
I&O
08/25/24 08/26/24 08/27/24
06:59 06:59 06:59
Intake Total 1160 / 1160
Balance 1160 / 1160
Review of Systems
-
History Source: Patient
All other systems: Reviewed and negative
Physical Exam
-
General: No Apparent Distress
HEENT: Normocephalic
Cardiac: Regular Rhythm
GI: Soft, Nontender and Nondistended
Skin: Warm
Neuro: Awake and Alert
Psych: Calm
[2024-08-26 10:27] LABS: Blood Urea Nitrogen 27 mg/dl (9-20); Calcium 8.6 mg/dl (8.4-10.2); Carbon Dioxide 28 mmol/L (22-30); Chloride 100 mmol/L (98-107); Estimated Creatinine Clearance 69 ml/min; Glucose 109 mg/dl (70-99); Magnesium 2.2 mg/dl (1.6-2.3); Potassium 3.6 mmol/L (3.5-5.1); Sodium 137 mmol/L (135-145); eGFR > 60.00
--- NOTE | 2024-08-26 11:09 | W.PN.UPDATE ---
Update Note
Progress Note Update
As per conversation with sister, who is POA: plan for hospice upon d/c in [facility]. Patient limited DNR: no intubation
[2024-08-26] MEDS: NSS 250 IV (11:33)
--- NOTE | 2024-08-26 13:21 | W.PN.UPDATE ---
Update Note
Progress Note Update
Chronic hypotension - while asymptomatic cont midodrine and avoid additional BP meds. will stop spironolactone
EKG with AV block, apparently 2nd degree type 1 -will discuss with cardio
Furosemide to switch to oral upon d/c, hold today
--- NOTE | 2024-08-26 13:30 | PTCARENOTE ---
At 1130 Pt. BP 86/52 and pt. appearing more lethargic than usual. MD updated, 250 ml bolus ordered and BP up to 115/72. At 1230 Tele then alarming for HR in 140s, MD updated again and EKG ordered and obtained with critical result of AV block sinus
tachy with 2nd degree AV block Mobitz 1 and low voltage QRS. MD at bedside to evaluate pt. At 1300 MD updated for pt tele sustaining in 140s in a-fib rhythm BP 95/62, pulse ox 93% on RA, RR 20, temp 97.2. Pt. has no chest pain, palpitations, or
dizziness, only complaint is his ongoing cough and shortness of breath. No new orders at this time.
[2024-08-26 13:47] LABS: % Basophils 0.3 % (0-2); % Eosinophils 0.5 % (0-6); % Immature Granulocytes 0.3 % (0-0.5); % Lymphocytes 6.2 % (20.5-51.1); % Monocytes 12.1 % (1.7-9.3); % Neutrophils 80.6 % (42.2-75.2); Absolute Lymphocytes 0.4 10^3/uL (1.2-3.4); Absolute Monocytes 0.8 10^3/uL (0.1-0.6); Absolute Neutrophils 5.1 10^3/uL (1.4-6.5); Hematocrit 39.7 % (39.0-52.0); Hemoglobin 13.6 g/dL (13.0-18.0); Mean Corp Hgb Conc. 34.3 g/dL (33.0-37.0); Mean Corpuscular Hgb 32.5 pg (27.0-31.0); Mean Corpuscular Volume 94.7 fL (80.0-94.0); Nucleated Red Blood Cells % 0 % (-); Platelet Count 229 10^3/uL (130-400); Red Blood Cell Count 4.19 10^6/uL (4.70-6.10); Red Cell Dist. Width 14.7 % (11.5-14.5); White Blood Cell Count 6.3 10^3/uL (4.8-10.8)
--- NOTE | 2024-08-26 14:04 | W.PN.PUL3 ---
Today's Communication / Plan
-
Pulmonary service will sign off, please call as needed
Assessment
-
#1. Chronic Right sided pleural effusion, trapped lung with thick pleura on CT. Prior h/o hydropneumothorax post thoracentesis without lung re-expansion (07/2024).
-Would not recommend thoracentesis as lung is unlikely to expand and he will likely have Pneumo ex-vacuo.
-Continue IV Lasix as ordered
#2. Acute on chronic HFpEF. BNP elevated, increased interstitial markings on imaging
-IV Lasix as ordered
#3. Bronchospasm on exam, ? suspect wheezing from volume overload. Unclear if any known h/o Asthma.
-Duoneb qid short term, improving clinically
-Anticipate this should continue to improve with IV Lasix
#4. h/o ENEDINA
-Nightly CPAP
Total time spent on this consultation/encounter __32__ minutes which includes review of history, physical exam, medications, laboratory data, personal review of imaging, extensive review of outpatient records, discussion with care team and
respiratory therapy.
Subjective Data
-
Date of Service:
Date of Service: August 26, 2024
Subjective:
Sitting comfortably in bed. no acute distress.
Objective Data
Data Reviewed
Vital Signs / I&O / Oxygen:
Vital Signs
Temp Pulse Resp BP Pulse Ox
97.6 F 120 16 115/72 96
08/26/24 11:18 08/26/24 12:37 08/26/24 11:26 08/26/24 12:37 08/26/24 11:18
Intake and Output
08/25/24 08/26/24 08/27/24
06:59 06:59 06:59
Intake Total 1160 / 1160
Balance 1160 / 1160
SaO2 96
Physical Exam
General: Comfortable
HEENT: Normocephalic
Cardiovascular: S1-S2
Respiratory: Wheeze (Faint end expiratory wheezing )
GI: Soft and Non Distended
Neurology: Awake and Alert
Skin: Warm
Labs/Micro/Reports
Lab Data
08/26/24 13:37
08/26/24 09:07
Microbiology
08/24/24 17:41 Nasal Swab Influenza Types A & B (ALLISON) - Final
Negative for Influenza A & B, NAAT
Negative results must be combined with clinical observations
and patient history.
Nucleic Acid Amplification test (NAAT)performed on the
[employer] platform.
--- NOTE | 2024-08-26 14:54 | CM ---
Addendum entered by Danae Morris 08/26/24 16:13:
Spoke Farida liaison with [facility]-states they are in careport.
Referral entered in careport
tt hospitalist
Original Note:
Left message with Hallie nurse from [facility]. await call back regarding hospice.
Per note hospitalist spoke with sister JERICA & plan for hospice upon d/c in [facility].
Spoke with sister Sonia [phone] & would prefer hospice or [facility]
tt [facility]-unable to accept
PLAN: Return to [facility], hospice
Report #: [phone]
Fax #: [phone]
[2024-08-26] MEDS: LIPITOR 10 MG PO (17:06)
[2024-08-26] MEDS: ATIVAN 0.5 MG PO (17:06)
--- NOTE | 2024-08-26 18:05 | W.PN.UPDATE ---
Addendum entered and electronically signed by Hill Spicer MD 08/26/24 18:10:
Family expecting admission to hospice in hospital as per CM
Original Note:
Update Note
Progress Note Update
As per conversation with sister - patient had his living will filled up by them recently that is stating that no heroic measures to be attempted in the case of health deterioration and after explanation about intubation and CPR process confirmed
full DNR
--- NOTE | 2024-08-26 18:08 | W.PN.UPDATE ---
Update Note
Progress Note Update
Afib with RVR - with hypotension will attempt Digoxin load
[2024-08-26] MEDS: LANOXIN 250 MCG IV (18:27)
[2024-08-27] MEDS: LANOXIN 250 MCG IV (01:42)
[2024-08-27 03:00] VITALS: BP 117/71
[2024-08-27] MEDS: LASIX 40 MG PO ×2 (04:34→17:00)
[2024-08-27 06:00] VITALS: BMI 24.8
[2024-08-27] MEDS: DUONEB 3 ML INH ×4 (07:22→19:15)
[2024-08-27 07:30] VITALS: BP 101/68
[2024-08-27] MEDS: ProAmatine 10 MG PO ×3 (07:59→17:01)
[2024-08-27] MEDS: TOPROL XL 12.5 MG PO (07:59)
[2024-08-27] MEDS: FLOMAX 0.4 MG PO (07:59)
[2024-08-27] MEDS: ELIQUIS 5 MG PO ×2 (07:59→21:26)
[2024-08-27] MEDS: LEXAPRO 15 MG PO (07:59)
[2024-08-27] MEDS: LUMINAL 32.4 MG PO ×3 (07:59→17:04)
[2024-08-27] MEDS: COLACE 100 MG PO ×2 (07:59→17:00)
[2024-08-27] MEDS: PROTONIX 40 MG PO (07:59)
[2024-08-27] MEDS: MIRALAX 17 GRAMS PO (08:00)
[2024-08-27] MEDS: KLONOPIN 0.5 MG PO ×2 (08:00→21:27)
[2024-08-27] MEDS: URECHOLINE 25 MG PO ×2 (08:05→21:27)
[2024-08-27 08:14] LABS: Blood Urea Nitrogen 22 mg/dl (9-20); Calcium 8.3 mg/dl (8.4-10.2); Carbon Dioxide 30 mmol/L (22-30); Chloride 101 mmol/L (98-107); Estimated Creatinine Clearance 78 ml/min; Glucose 71 mg/dl (70-99); Magnesium 2.2 mg/dl (1.6-2.3); Potassium 3.7 mmol/L (3.5-5.1); Sodium 137 mmol/L (135-145); eGFR > 60.00
--- NOTE | 2024-08-27 09:11 | W.PN.HOSP.TC ---
Today's Communication/Plan
-
Hospice consult
Assessment / Plan
Assessment / Plan
74yo M with Asperger, Hx of seizure d/o, KNIFE OPERATOR shunt, paroxysmal Afib, HFpEF, HLD, BPH, recurrent pleural effusion fell in [facility] and sent to [facility] where his hed and neck CT were done and negative, but he was recommended for
admission for CHF exacerbation. Sister signed out him to bring him to the . He has moderate R hydropneumothorax, similar to CT on 08/17/24 done before his d/c from . ProBNP mildly elevated so patient started on diuresis. Previously followed for
persistent R pleural effusion with trapped lung. Thoracentesis found transudate at that time. As per further assessment by Pulmonology -no thoracentesis advised. Treated for CHF. Sister decided to sign up for hospice with poor electronic tester prognosis
A/P:
#Acute on chronic HFpEF with persistent R pleural effusion
Not hypoxic at [facility] time
Echo in May 2024 - preserved EF, no significant valvular dysfunction
Pulmonology consult - previously effusion found present since at least 2022. High risk for reaccumulation. May need to consider VATS/pleurodesis, possibly pleural cath vs palliative approach
Lasix, daily weight, follow Cr and electrolytes
#Paroxysmal Afib with RVR
due to hypotension: loaded with digoxin, with successful rate control
#GOC
Sister confirmed DNR and started process for hospice
CM for hospice consult
#Asperger
#Developmental delay
#KNIFE OPERATOR shunt
#Orthostatic hypotension
#HLD
#ENEDINA on CPAP
#Seizure d/o
#Essential HTN
#BPH
watch for retention
seizure precautions
cont home meds
DVT ppx ELiquis
Full code
I have spent at least 58min reviewing chart, test results, communication with consultants and providing direct patient care
Anticipated Discharge: Within 24 hours
Subjective/Interval History
-
Date of Service: August 27, 2024
Objective Data
-
Labs:
Laboratory Results
08/27/24
07:07
Sodium 137
Potassium 3.7
Chloride 101
Carbon Dioxide 30
BUN 22 H
Creatinine 0.7
Glucose 71
Calcium 8.3 L
Vital Signs:
Vital Signs
Temp Pulse Resp BP Pulse Ox
97.9 F 70 16 101/68 100
08/27/24 07:30 08/27/24 07:30 08/27/24 07:30 08/27/24 07:30 08/27/24 07:30
I&O
08/26/24 08/27/24 08/28/24
06:59 06:59 06:59
Intake Total 1160 / 1160 120 / 120 400 / 400
Balance 1160 / 1160 120 / 120 400 / 400
Review of Systems
-
History Source: Patient
All other systems: Reviewed and negative
Physical Exam
-
General: No Apparent Distress
Respiratory: Clear to Auscultation
GI: Soft, Nontender and Nondistended
Neuro: Awake, Alert, Oriented and AO x 3
Psych: Calm
--- NOTE | 2024-08-27 09:50 | CM ---
Addendum entered by Danae Morris 08/27/24 17:17:
Spoke with Rita clinical director from [facility], had concerns, may need to send additional hospice referral to another agency.
Original Note:
Clinicals sent to [facility] via careport-accepted
Spoke with Farida [facility] - [facility] will coordinate with [facility] regarding equipment. States will speak with sister.
Per Crystal [phone] from [facility] and cannot accept today. She also stated she would need to speak with administration if they can provide transportation. Await call
PLAN: [facility] with [facility]
Report #: [phone]
Fax #: [phone]
[facility] fax #: [phone]
[2024-08-27 11:00] VITALS: BP 93/56
[2024-08-27] MEDS: LANOXIN 125 MCG PO (12:48)
[2024-08-27 14:03] LABS: Digoxin 0.6 ng/ml (0.8-2.0)
[2024-08-27 15:15] VITALS: BP 103/63
[2024-08-27] MEDS: LIPITOR 10 MG PO (17:01)
[2024-08-27 19:38] VITALS: BP 119/88
[2024-08-27 23:23] VITALS: BP 108/70
[2024-08-28 03:12] VITALS: BP 99/58
[2024-08-28 06:00] VITALS: BMI 25.6
[2024-08-28] MEDS: DUONEB 3 ML INH ×2 (07:04→11:24)
[2024-08-28 07:42] VITALS: BP 114/77
[2024-08-28] MEDS: MIRALAX 17 GRAMS PO (09:23)
[2024-08-28] MEDS: FLOMAX 0.4 MG PO (09:23)
[2024-08-28] MEDS: ProAmatine 10 MG PO ×2 (09:23→12:38)
[2024-08-28] MEDS: LEXAPRO 15 MG PO (09:24)
[2024-08-28] MEDS: LASIX 40 MG PO (09:24)
[2024-08-28] MEDS: LUMINAL 32.4 MG PO ×2 (09:24→12:38)
[2024-08-28] MEDS: TOPROL XL 12.5 MG PO (09:24)
[2024-08-28] MEDS: PROTONIX 40 MG PO (09:24)
[2024-08-28] MEDS: URECHOLINE 25 MG PO (09:24)
[2024-08-28] MEDS: COLACE 100 MG PO (09:24)
[2024-08-28] MEDS: ELIQUIS 5 MG PO (09:24)
[2024-08-28] MEDS: KLONOPIN 0.5 MG PO (09:24)
--- NOTE | 2024-08-28 09:49 | W.PN.HOSP.TC ---
Today's Communication/Plan
-
dc
Assessment / Plan
Assessment / Plan
74yo M with Asperger, Hx of seizure d/o, DEVICE REPAIR TECHNICIAN shunt, paroxysmal Afib, HFpEF, HLD, BPH, recurrent pleural effusion fell in [facility] and sent to [facility] where his hed and neck CT were done and negative, but he was recommended for
admission for CHF exacerbation. Sister signed out him to bring him to the . He has moderate R hydropneumothorax, similar to CT on 08/17/24 done before his d/c from . ProBNP mildly elevated so patient started on diuresis. Previously followed for
persistent R pleural effusion with trapped lung. Thoracentesis found transudate at that time. As per further assessment by Pulmonology -no thoracentesis advised. Treated for CHF. Sister decided to sign up for hospice with poor moth exterminator prognosis.
Medically stable for d/c back to [facility]
A/P:
#Acute on chronic HFpEF with persistent R pleural effusion
Not hypoxic at [facility] time
Echo in May 2024 - preserved EF, no significant valvular dysfunction
Pulmonology consult - previously effusion found present since at least 2022. High risk for reaccumulation. May need to consider VATS/pleurodesis, possibly pleural cath vs palliative approach
Lasix, daily weight, follow Cr and electrolytes
#Paroxysmal Afib with RVR
due to hypotension: loaded with digoxin, with successful rate control
#GOC
Sister confirmed DNR and started process for hospice
CM for hospice consult
#Asperger
#Developmental delay
#DEVICE REPAIR TECHNICIAN shunt
#Orthostatic hypotension
#HLD
#ENEDINA on CPAP
#Seizure d/o
#Essential HTN
#BPH
watch for retention
seizure precautions
cont home meds
DVT ppx ELiquis
Full code
I have spent at least 38min reviewing chart, test results, communication with consultants and providing direct patient care
Anticipated Discharge: Today
Subjective/Interval History
-
Date of Service: August 28, 2024
Objective Data
-
Vital Signs:
Vital Signs
Temp Pulse Resp BP Pulse Ox
97.9 F 78 15 114/77 97
08/28/24 07:42 08/28/24 07:42 08/28/24 07:42 08/28/24 07:42 08/28/24 07:42
I&O
08/27/24 08/28/24 08/29/24
06:59 06:59 06:59
Intake Total 120 / 120 940 / 940
Balance 120 / 120 940 / 940
Review of Systems
-
History Source: Patient
All other systems: Reviewed and negative
Physical Exam
-
General: Well Developed
HEENT: Normocephalic
Respiratory: Clear to Auscultation
GI: Soft, Nontender and Nondistended
Neuro: Awake, Alert, Oriented and AO x 3
Psych: Calm
--- NOTE | 2024-08-28 09:52 | W.DCSUMMARY ---
Discharge Summary
Discharge Data
Date of Admission: 08/24/24
Date of Discharge: 08/28/24
-
Pending Results: No
Hospital Course
74yo M with Asperger, Hx of seizure d/o, RESET MERCHANDISER shunt, paroxysmal Afib, HFpEF, HLD, BPH, recurrent pleural effusion [facility] and sent to [facility] where his hed and neck CT were done and negative, but he was recommended for
admission for CHF exacerbation. Sister signed out him to bring him to the . He has moderate R hydropneumothorax, similar to CT on 08/17/24 done before his d/c from . ProBNP mildly elevated so patient started on diuresis. Previously followed for
persistent R pleural effusion with trapped lung. Thoracentesis found transudate at that time. As per further assessment by Pulmonology -no thoracentesis advised. Treated for CHF. Sister decided to sign up for hospice with poor half-way prognosis.
Medically stable for d/c back to [facility]
I have spent at least 38min reviewing chart, test results, communication with consultants and providing direct patient care
Patient was managed for:
#Acute on chronic HFpEF with persistent R pleural effusion
#Paroxysmal Afib with RVR
#GOC
#Asperger
#Developmental delay
#RESET MERCHANDISER shunt
#Orthostatic hypotension
#HLD
#ENEDINA on CPAP
#Seizure d/o
#Essential HTN
#BPH
Discharge Plan
-
Patient Disposition: Other
Discharge Diagnosis/Procedures: care facitity
Diet: Regular
Activity: As tolerated
Referrals:
Taylor Daniels MD [Family Provider] -
Prescriptions:
New
digoxin 125 mcg (0.125 mg) Tablet
125 mcg PO NOON Qty: 30 0RF
Continued
clonazepam 0.5 MG tablet
0.5 mg PO BID
docusate sodium 100 MG capsule
100 mg PO BID@0800,1600
phenobarbital 32.4 MG tablet
32.4 mg PO TID@0800,1200,1600
calcium carbonate-vitamin D3 [Oyster Shell Calcium-Vit D3] 500 mg-5 mcg (200 unit) Tablet
1 tab PO BID@0800,1600
polyethylene glycol 3350 17 GRAMS powder in packet
17 grams PO DAILY
simvastatin 10 mg Tablet
10 mg PO QPM
tamsulosin 0.4 mg Capsule
0.4 mg PO DAILY
escitalopram oxalate 10 mg Tablet
10 mg PO DAILY
Rx Instructions:
take w/ 5 mg for total dose 15 mg
escitalopram oxalate 5 mg Tablet
5 mg PO DAILY
Rx Instructions:
take w/ 10 mg for total dose 15 mg
acetaminophen 325 mg Tablet
650 mg PO Q4HPRN PRN (Reason: mild pain/fever)
nystatin 100,000 unit/gram ointment
1 applic TOPICAL BIDPRN PRN (Reason: rash)
guaifenesin 100 mg/5 mL Liquid
100 - 200 mg PO Q4HPRN PRN (Reason: cough)
Citrucel 500 mg Tablet
1,000 mg PO BID@0800,1600
bethanechol chloride 25 mg tablet
25 mg PO BID
pantoprazole [Protonix] 40 mg tablet,delayed release (DR/EC)
40 mg PO DAILY Qty: 30 0RF
spironolactone 25 mg Tablet
12.5 mg PO DAILY Qty: 30 0RF
potassium chloride 10 mEq Tablet Extended Release
10 meq PO DAILY
ferrous sulfate 325 mg (65 mg iron) Tablet
325 mg PO DAILY
Stomach Relief 525 mg/15 mL Suspension
525 mg PO TIDPRN PRN (Reason: nausea/diarrhea)
Refresh Optive 0.5-0.9 % Drops
1 drp BOTH EYES DAILYPRN PRN (Reason: dry eyes)
metoprolol succinate 25 mg Tablet Extended Release 24 Hr
12.5 mg PO DAILY Qty: 30 0RF
Eliquis 5 mg tablet
5 mg PO BID Qty: 60 0RF
midodrine 5 mg Tablet
10 mg PO TID@0800,1300,1800 Qty: 90 0RF
furosemide 40 mg Tablet
40 mg PO BID@0800,1600 Qty: 60 0RF
chlorhexidine gluconate 0.12 % mouthwash
15 ml PO BID
Discharge Orders:
Discharge Patient (As Directed); Ordered 08/28/24
Ordered By: Hill Spicer
Discharge Date and Time
Print Language: GREEK
--- NOTE | 2024-08-28 10:49 | CM ---
Addendum entered by Esperanza Mccray 08/28/24 13:27:
Per Lynne, transport to the facility will be provided by [facility]; machine pecan picker planned for 1400 today
Addendum entered by Esperanza Mccray 08/28/24 11:54:
[facility]
Report #[phone]; if late in the day call # [phone]

Addendum entered by Esperanza Mccray 08/28/24 11:42:
Ismael from [facility] called CORDELL; reported Hospice services can start today or over the weekend; he can be reached @ [phone]
Original Note:
[facility] spoke with Lynne @ [facility] (# [phone]) where patient resides. Updated clinicals and discharge summary faxed as requested to # [phone]
Requested to speak with Attending prior to discharge; Attending notified and provide contact #
Patient's sister, Sonia, spoke with [facility] and prefers for brother's Hospice provider; referral sent via [facility];
CORDELL spoke with [facility] Office #[phone]
Ambulance Transport needed
Plan: [facility]charge to [facility] with [facility]
[2024-08-28 11:12] VITALS: BP 100/61
[2024-08-28] MEDS: LANOXIN 125 MCG PO (12:38)
== END 2024-08-28 14:49 | disposition hospice, home (50) | DRG 291 ==
LOC: 3 WEST ACU 22:55
PROVIDERS: Student in an Organized Health Care Education/Training Program; ADMITTING PHYSICIAN Internal Medicine; ATTENDING PHYSICIAN Internal Medicine; EMERGENCY PHYSICIAN Emergency Medicine; FAMILY PHYSICIAN Internal Medicine; OTHER PHYSICIAN Internal Medicine
DX: I11.0 Hypertensive heart disease with heart failure (principal); I50.33 Acute on chronic diastolic (congestive) heart failure; F84.5 Asperger's syndrome; G40.909 Epilepsy, unspecified, not intractable, without status epilepticus; I48.0 Paroxysmal atrial fibrillation; G25.0 Essential tremor; E78.00 Pure hypercholesterolemia, unspecified; I95.1 Orthostatic hypotension; F70 Mild intellectual disabilities; K64.9 Unspecified hemorrhoids; N40.0 Benign prostatic hyperplasia without lower urinary tract symptoms; G47.33 Obstructive sleep apnea (adult) (pediatric); I95.89 Other hypotension; F42.9 Obsessive-compulsive disorder, unspecified; K74.60 Unspecified cirrhosis of liver; R62.50 Unspecified lack of expected normal physiological development in childhood; W19.XXXA Unspecified fall, initial encounter; Y93.9 Activity, unspecified; Y92.9 Unspecified place or not applicable; J98.01 Acute bronchospasm; Z66 Do not resuscitate; Z90.49 Acquired absence of other specified parts of digestive tract; Z90.79 Acquired absence of other genital organ(s); Z98.2 Presence of cerebrospinal fluid drainage device; Z11.52 Encounter for screening for COVID-19; Z79.01 Long term (current) use of anticoagulants; Z87.19 Personal history of other diseases of the digestive system
CPT/HCPCS: 71045; 71046; 80048; 80053; 80162; 83735; 83880; 85025; 87070; 87502; 87811; 93005; 94640; 96374; 99285; J1160